=== PATIENT | female | born 1950 | race Caucasian/White ===

== ENCOUNTER 2020-05-01 23:57 | Inpatient (IN) | payer MEDICARE, OTHER, SELFPAY ==
[2020-05-02] VITALS (13 sets, daily range): BP systolic 116–134; BP diastolic 63–83; PULSE 75–100; RESP 16–29; TEMP 36.6–37.8; O2SAT 95–98; BMI 31.2
--- NOTE | 2020-05-02 00:05 | PM.HP ---
Providers/Chief Complaint Primary Care Provider: JONATHON Provider Chief Complaint: FEVER / WEAKNESS History of Present Illness Valerie Mueller is a 70 year old female who carries a history of Alzheimer's dementia, pulmonary hypertension, severely reduced ejection fraction 10 to 15%, nonischemic cardiomyopathy, transferred from [facility] to rule out COVID. Patient was admitted at the [facility] for a day for management of CHF exacerbation. She was diuresed and sent home. Today at [facility] clinic noticed temp 101 and was asked to get further evaluation. Diagnostics at the [facility] were unremarkable, strep antigen negative, chest x-ray showed pulmonary congestion, creatinine 1.24, urinalysis did not reveal any signs of infection, no source of fever was identified, they did not had rapid PCR for COVID hence was transferred to our facility for further evaluation on family's request. Patient was saturating well on room air at the facility, hemodynamically stable, temp 101, initially she was tachycardic around 101, she was given 20 mg of Lasix and Tylenol. At the time of my evaluation patient is not endorsing any chest pain, shortness of breath, diarrhea, dysuria, cough or sputum production. She lives with her son, no one is sick at home, she has not traveled outside. She is endorsing dyspnea on exertion, myalgia and lethargy. Current vitals blood pressure 123/70, temp 99.9, O2 saturation 98% on room air no active respiratory distress heart rate 78 I have requested stat chest x-ray which revealed cardiomegaly, vascular congestion which is not very different from her previous chest x-ray, mild interstitial prominence otherwise no active infiltrate or groundglass opacities COVID testing ordered, I have requested urine antigens, CRP, procalcitonin, ferritin, d-dimer Review of Systems Const: Reports: fever(s), chills, body aches, fatigue and malaise Eyes: Denies: change in vision ENMT: Denies: throat pain Card: Reports: swelling of feet/ankles and dyspnea on exertion; Denies: chest pain or orthopnea Resp: Reports: dyspnea; Denies: productive cough or non-productive cough GI: Denies: abdominal pain, nausea or vomiting : Denies: flank pain, difficulty voiding or urinary frequency Musc: Reports: muscle cramps Skin/Breast: Denies: rash Neuro: Denies: headache(s) Psych: Denies: anxiety Endo: Denies: polyuria David/Lymph: Denies: easy bruising All/Imm: Denies: urticaria Medications/Allergies Home Medications Medication Instructions Recorded Confirmed Last Taken Type allopurinol 300 mg tablet 300 mg PO DAILY 03/24/20 05/02/20 1 Day Ago History ~05/01/20 aspirin 81 mg tablet,delayed 81 mg PO DAILY 03/24/20 05/02/20 1 Day Ago History release ~05/01/20 clotrimazole 1 % topical cream 1 applic TOPICAL BID gm 03/24/20 03/24/20 Unknown History donepezil 5 mg tablet 5 mg PO BEDTIME 03/24/20 05/02/20 Unknown History escitalopram oxalate 10 mg tablet 15 mg PO DAILY tab 03/24/20 05/02/20 1 Day Ago History ~05/01/20 esomeprazole magnesium 40 mg 40 mg PO DAILY 03/24/20 05/02/20 1 Day Ago History capsule,delayed release ~05/01/20 fluoxetine 20 mg tablet 20 mg PO DAILY 03/24/20 05/02/20 1 Day Ago History ~05/01/20 furosemide 20 mg tablet 40 mg PO DAILY 03/24/20 05/02/20 1 Day Ago History ~05/01/20 hydralazine 25 mg tablet 25 mg PO TID 03/24/20 05/02/20 1 Day Ago History ~05/01/20 isosorbide dinitrate 20 mg tablet 10 mg PO BID tab 03/24/20 05/02/20 1 Day Ago History ~05/01/20 metoprolol succinate 25 mg capsule 12.5 mg PO BID each 03/24/20 05/02/20 1 Day Ago History sprinkle, ext. release 24 hr ~05/01/20 nitroglycerin 0.4 mg sublingual 0.4 mg SUBLINGUAL Q5M PRN 03/24/20 05/02/20 Unknown History tablet oxybutynin chloride 10 mg 10 mg PO DAILY 03/24/20 05/02/20 1 Day Ago History tablet,extended release 24 hr ~05/01/20 potassium chloride 20 mEq 20 meq PO DAILY 03/24/20 05/02/20 1 Day Ago History tablet,extended release ~05/01/20 simvastatin 20 mg tablet 20 mg PO BEDTIME 03/24/20 05/02/20 1 Day Ago History ~05/01/20 calcium carbonate-vitamin D3 05/02/20 1 Day Ago History ~05/01/20 ferrous sulfate 325 mg PO DAILY 05/02/20 05/02/20 1 Day Ago History ~05/01/20 magnesium oxide 500 mg PO BID 05/02/20 05/02/20 1 Day Ago History ~05/01/20 nystatin 1 applic TOPICAL BID 05/02/20 05/02/20 Unknown History Allergies Allergy/AdvReac Type Severity Reaction Status Date / Time phenazopyridine Allergy Unknown Verified 05/02/20 01:15 [From Pyridium] Sulfa (Sulfonamide Allergy Unknown Verified 05/02/20 01:15 Antibiotics) sulfamethoxazole Allergy Unknown Verified 05/02/20 02:02 [From Septra] trimethoprim [From Septra] Allergy Unknown Verified 05/02/20 02:02 PFSH Acute PFSH: Medical History Abnormal colonoscopy Polyp removal Anemia Bundle branch block Chronic kidney disease, stage 3 (moderate) Congestive heart failure Failure reduced EF 10 to 15% Diabetes mellitus Gout Hypertension Iron deficiency anemia Memory Loss Moderate pulmonary arterial systolic hypertension Nonischemic cardiomyopathy Obstructive sleep apnea Osteoarthritis Type 2 diabetes mellitus Surgical History H/O bladder repair surgery History of cardiac cath History of hysterectomy History of knee replacement S/P cholecystectomy Social History Smoking and tobacco status: never smoked Alcohol intake: never Adopted: No Caregiver/support person: Yes Lives independently: No Household members: children Current occupational exposures/hazards: No History of recent travel: No Current gender identity: Female Physical Exam Narrative: EXAM NARRATIVE: Head to toe examination Patient is saturating well on room air No active respiratory distress She is wearing a mask, she was examined with proper PPE No active wheezing, bibasilar crackles adequate breath sounds Abdomen soft nontender nondistended S1, S2 without any signs of active heart failure Her CHF seems to be compensated She is oriented to place and person, mild cognitive impairment positive She is able to tell above-mentioned details Not endorsing new pain Bilateral lower extremity 1+ pitting edema No active neurological deficit EOMI, PERRLA Data : 05/02/20 00:55 05/02/20 00:55 A&P Assessment and plan (1) Febrile: Status: Acute (2) Chronic kidney disease, stage 3 (moderate): Status: Acute (3) Congestive heart failure: Status: Acute (4) Dementia: Status: Acute Additional A&P Information Fever without active source Patient is not septic at admission Was recently discharged from [facility] after management of CHF exacerbation Chest x-ray is not revealing new infiltrates however mild interstitial vascular markings are being appreciated Cardiomegaly No signs of UTI No cough or sputum production Patient is denying diarrhea We will check urine antigen, rule out COVID Will obtain ferritin, d-dimer, LDH, CRP, procalcitonin, No active respiratory distress, patient saturating well on room air, currently afebrile I would hold off on antibiotics for now as no source has been identified and she is not septic Droplet and contact isolation precaution She might benefit from CT of her chest once COVID has been ruled out Severely reduced action fraction without active exacerbation Her heart failure seems to be well compensated Continue same dose of Lasix No clinical signs of heart failure Chronic kidney disease No acute decompensate Her creatinine seems to be around baseline Alzheimer's dementia Continue donepezil DVT prophylaxis: Heparin Cardiac diet Full code Attestations Medical Necessity Statement*: Anticipating discharge in less than 48 hours currently need to rule out COVID, she has fever without active source, Time Spent in Patient Care: (>than 50% of time spent in counselling and/or direct pt care on unit). 40mins Coding Level of Care Code Acute Auto Inspector for Lisbeth Osorio Diagnoses Febrile R50.9 Chronic kidney disease, stage 3 (moderate) N18.3 Congestive heart failure I50.9 Dementia F03.90
--- NOTE | 2020-05-02 00:19 | ED_ITS ---
HPI - Fever General: Chief Complaint: Fever Stated Complaint: FEVER / WEAKNESS Time Seen by Provider: 05/02/20 00:08 Source: patient and EMS Mode of arrival: EMS Limitations: no limitations History of Present Illness: HPI Narrative: 70-year-old female who was recently admitted to [facility] for CHF exacerbation. Patient was discharged and states that today she started having a fever up to 101. Patient went back to [facility] is found to have fever with unknown origin. Patient was transferred here for direct admission. She is currently afebrile. She denies any cough. Denies any headache or chest pain. MD elicited complaint: fever Onset (ago): hour(s) Associated symptoms: Deny abdominal pain, chest pain, diarrhea, dysuria, headache(s), nausea or vomiting Review of Systems Const: Reports: fever(s) Eyes: Denies: blurry vision or eye discomfort ENMT: Denies: throat pain or dental pain Card: Denies: chest pain Resp: Denies: dyspnea GI: Denies: abdominal pain, nausea, vomiting or diarrhea : Denies: dysuria Musc: Denies: neck pain or back pain Skin/Breast: Denies: rash Neuro: Denies: headache(s) Psych: Denies: depression David/Lymph: Denies: easy bruising All/Imm: Denies: urticaria PFSH ED PFSH: Medical History Abnormal colonoscopy Polyp removal Anemia Bundle branch block Chronic kidney disease, stage 3 (moderate) Congestive heart failure Failure reduced EF 10 to 15% Diabetes mellitus Gout Hypertension Iron deficiency anemia Memory Loss Moderate pulmonary arterial systolic hypertension Nonischemic cardiomyopathy Obstructive sleep apnea Osteoarthritis Type 2 diabetes mellitus Surgical History H/O bladder repair surgery History of cardiac cath History of hysterectomy History of knee replacement S/P cholecystectomy Social History Smoking and tobacco status: never smoked Alcohol intake: never Adopted: No Caregiver/support person: Yes Lives independently: No Household members: children Current occupational exposures/hazards: No History of recent travel: No Current gender identity: Female Physical Exam Const: COMMON NORMALS: no acute distress, patient oriented x3 and healthy appearing HENMT: COMMON NORMALS: normocephalic and atraumatic HEAD & SCALP: normocephalic and atraumatic Eye: COMMON NORMALS: Equal, round and reactive pupils present and EOMs intact bilaterally PUPIL: Yes Equal, round and reactive pupils present Neck/C-Spine: COMMON NORMALS: full ROM and supple Chest: COMMONS NORMALS: normal inspection of the chest and normal palpation of entire chest wall Resp: COMMON NORMALS: normal respiratory effort, No retractions, No use of accessory muscles and clear to auscultation bilaterally AUSCULTATION: clear to auscultation bilaterally Cardio: COMMON NORMALS: regular rate, regular rhythm and No murmurs present (Cardio) RATE: regular rate RHYTHM: regular rhythm GI: COMMON NORMALS: Normal to inspection, nondistended, normoactive bowel sounds present, Soft to palpation, non-tender and no masses PALPATION: Yes Soft to palpation Extremity: COMMON NORMALS: normal to inspection and full ROM Neuro: COMMON NORMALS: patient oriented x3, moves all extremities and no focal motor deficits Psych: COMMON NORMALS: mental status grossly normal, Normal thought process present and cooperative THOUGHT PROCESS: Normal thought process present Skin: COMMON NORMALS: no rashes or lesions noted and no wounds GENERAL SKIN EXAM: no rashes or lesions noted Course Vital Signs: Vital signs: Vital Signs Temperature 100.0 F H 05/02/20 00:15 Pulse Rate 85 05/02/20 00:15 Respiratory Rate 22 H 05/02/20 00:15 Blood Pressure 118/73 05/02/20 00:15 Pulse Oximetry 95 05/02/20 00:15 MDM - Fever MDM Narrative: Medical decision making narrative: Patient presents here with a fever of unknown origin. Patient is in no distress here. I spoke to Dr. Baird and will admit. Discharge Plan Discharge Patient Disposition: Admitted As Inpatient Clinical Impression: Fever of unknown origin Condition: Stable Referrals: [facility] [Other] Coding Level of Care Code ED Painting Supervisor for Lisbeth Osorio
--- NOTE | 2020-05-02 00:28 | XRR_ITS ---
PROCEDURE INFORMATION: Exam: XR Chest, 1 View Exam date and time: 05/02/2020 12:48 AM Age: 70 years old Clinical indication: Patient HX: Fever/weakness x 2 days; Additional info: Chf TECHNIQUE: Imaging protocol: XR of the chest Views: 1 view. COMPARISON: CR Chest 2 views* [id number] 10/26/2019 10:45 AM FINDINGS: Lungs: Hyperinflation and interstitial prominence, without acute infiltrate. Pleural space: No significant pleural effusion. Heart/Mediastinum: Cardiomegaly. Vasculature: Ectasia of the thoracic aorta. Bones/joints: Osteopenia, mild scoliosis, and degenerative change . Soft tissues: Right-sided skin fold. XR/XR chest 1V portable [id number] IMPRESSION: Hyperinflation and interstitial prominence, without acute infiltrate.
[2020-05-02 01:18] LABS: Basophils % 0.3 %; Eosinophils # 0.1 10^3/uL (0.0-0.8); Eosinophils % 1.3 %; Hematocrit 39.5 % (37.0-47.0); Hemoglobin 12.4 g/dL (11.5-15.3); Lymphocytes # 1.7 10^3/uL (0.8-4.8); Lymphocytes % 23.7 %; Mean Corpuscular HGB Conc 31.4 g/dL (30.0-36.0); Mean Corpuscular Volume 85.9 fL (81-99); Mean Platelet Volume 11.4 fL (7.4-10.4); Monocytes # 0.9 10^3/uL (0.2-0.9); Neutrophils # 4.3 10^3/uL (1.8-7.7); Neutrophils % 61.3 %; Nucleated Red Blood Cells % 0 %; Platelet Count 142 10^3/cmm (130-400); Red Cell Distribution Width 17.7 % (12.1-15.1); White Blood Count 7.1 10^3/uL (4.0-10.0)
[2020-05-02] MEDS: heparin 5,000 unit/mL INJ 1 mL 5000 UNIT SUBCUT ×3 (01:18→18:11)
[2020-05-02 01:28] LABS: Chloride 97 mmol/L (98-107); Sodium 136 mmol/L (136-145)
[2020-05-02 01:30] LABS: D Dimer 2.45 ug/mIFEU (0-0.59)
[2020-05-02 01:42] LABS: Procalcitonin 1.12 ng/mL (0-0.5)
[2020-05-02 01:54] LABS: C Reactive Protein 53.8 mg/L (0.0-4.9); Ferritin 229 ng/mL (15-150); Lactate Dehydrogenase 166 U/L (135-214)
--- NOTE | 2020-05-02 01:58 | PC.NURSE ---
Patient was admitted to the floor from the ED after being at [facility]. Report was received via phone from the ED. Patient is alert to person, place, and situation, however could not tell me the year. Patient was able to answer admission questions for me. Patient does not have any complaints at this time. Bed alarm has been set due to history of dementia. Patient has been oriented to her room and has call light within reach. Will continue to monitor.
[2020-05-02 02:13] LABS: Blood Urea Nitrogen 34 mg/dL (8-23); Calcium 9.6 mg/dL (8.5-10.5); Carbon Dioxide 24 mmol/L (22-29); Glomerular Filtration Rate 40.5 mL/min (90-130); Glucose 124 mg/dL (65-115); Osmolality Calculated 281 mOsm/kg (285-295)
--- NOTE | 2020-05-02 04:12 | PC.NURSE ---
password: [id number]
--- NOTE | 2020-05-02 05:01 | PC.NURSE ---
Patient has had an uneventful night. Patient's bedding is currently clean/dry. Patient was asking if she needs to get up to use the restroom and stated no. Bed alarm is still set. Will continue to monitor.
[2020-05-02 05:02] LABS: Basophils % 0.3 %; Eosinophils # 0.1 10^3/uL (0.0-0.8); Eosinophils % 1.6 %; Hematocrit 37.7 % (37.0-47.0); Hemoglobin 11.8 g/dL (11.5-15.3); Lymphocytes # 1.5 10^3/uL (0.8-4.8); Lymphocytes % 23.5 %; Mean Corpuscular HGB Conc 31.3 g/dL (30.0-36.0); Mean Corpuscular Hemoglobin 26.7 pg (28.0-34.0); Mean Corpuscular Volume 85.3 fL (81-99); Mean Platelet Volume 10.5 fL (7.4-10.4); Monocytes # 0.8 10^3/uL (0.2-0.9); Monocytes % 12.4 %; Neutrophils # 3.9 10^3/uL (1.8-7.7); Neutrophils % 61.9 %; Nucleated Red Blood Cells % 0 %; Platelet Count 121 10^3/cmm (130-400); Red Blood Count 4.42 10^6/uL (4.1-5.3); Red Cell Distribution Width 17.4 % (12.1-15.1); White Blood Count 6.3 10^3/uL (4.0-10.0)
[2020-05-02] MEDS: FUROsemide 20 mg Tablet PO (09:18)
[2020-05-02] MEDS: pantoprazole DR 40 mg Tablet PO (09:19)
[2020-05-02] MEDS: aspirin 81 mg EC Tablet PO (09:19)
[2020-05-02] MEDS: donepezil 5 MG Tablet PO (09:19)
[2020-05-02] MEDS: fluoxetine 20 mg Capsule PO (09:19)
[2020-05-02] MEDS: allopurinol 300 mg Tablet PO (09:19)
[2020-05-02 10:28] LABS: Estmated Average Glucose 120; Hemoglobin A1C 5.8 % (4.0-6.0)
[2020-05-02] MEDS: hyDRALAzine 10 mg Tablet PO ×3 (10:37→21:01)
--- NOTE | 2020-05-02 10:58 | PC.CHAP ---
Pastoral Care Encounter/Spiritual Assessment Type of Contact [] Declined fringe weaver visit [] Patient/Family/Request visit [] Outpatient visit [] Follow-up visit [] Physician referral [] Code/Alert [x] Routine visit [] Staff referral [] Actively dying [] Patient sleeping [] Family support [] [] Out of room [] Palliative care [] [] Receiving care in room [] Pre-surgical visit [] Trauma [] Long length of stay [] ICU visit [x] Other: Isolated Relational/Emotional Strength [] Patient feels connected with others/family/visitors/staff [] Distress [] Loneliness/isolation [] Abandonment Spirituality of Patient [] Person of Ashlyn [] Attends Voodoo of their Ashlyn [] Believes in Prayer [] Reads Bible or Yazdanism materials [] There are Spiritual issues to be addressed Environmental Science Technician Interventions [] Prayer [] Active listening [] Non-anxious presence [] Spiritual/emotional support [] Crisis/trauma care [] Spiritual counseling [] Bereavement support [] Provided bereavement packet [] Provided Bible/devotional materials [] Provided toy/stuffed animal, coloring book to patient or family member [] Provided Communion [] Anointing/[place] [] Salvation [x] Completed spiritual assessment [] Other: Impact on Illness or Injury [] Angry [] Fearful [] Anxious [] Often cries [] Exhaustion [] Unable to work [] Unable to attend voodoo [] Unable to walk/stand [] Unable to read [] Unable to drive [] Unable to eat/drink [] Unable to sleep [] Unable to be with family [] Patient intubated [] Other: Summary Time spent with patient
[2020-05-02 11:41] LABS: Glucose Point of Care 116 mg/dL (70-110)
--- NOTE | 2020-05-02 13:59 | PM.PN ---
Subjective Subjective: Interval history: Currently patient is seen sitting up in bed, has a mask on, has no complaints, no fevers, no chills, no nausea, no vomiting, no lightheadedness, no dizziness, denies shortness of breath currently, is a bit anxious about her COVID testing Vitals/I&O/Wt Last Vital Signs Temp 98.5 F 05/02/20 12:00 Pulse 94 05/02/20 12:00 Resp 23 H 05/02/20 12:00 BP 126/74 05/02/20 12:00 Pulse Ox 98 05/02/20 12:00 05/01/20 05/02/20 05/02/20 22:59 06:59 14:59 Intake Total 200 / 200 500 / 500 Balance 200 / 200 500 / 500 Weight last 48 hrs Weight 59.194 kg Weight 72.575 kg Physical Exam Const: COMMON NORMALS: no acute distress and patient oriented x3 HENMT: COMMON NORMALS: normocephalic HEAD & SCALP: normocephalic Neck/C-Spine: COMMON NORMALS: no JVD Resp: COMMON NORMALS: normal respiratory effort, No retractions, No use of accessory muscles and clear to auscultation bilaterally AUSCULTATION: clear to auscultation bilaterally Cardio: COMMON NORMALS: no JVD, regular rate, regular rhythm, S1 normal heart sound present and S2 normal heart sound present RATE: regular rate RHYTHM: regular rhythm HEART SOUNDS: S1 normal heart sound present and S2 normal heart sound present GI: COMMON NORMALS: Normal to inspection, nondistended, normoactive bowel sounds present, Soft to palpation, non-tender, No hepatosplenomegaly present, no masses and no bruits PALPATION: Yes Soft to palpation and Yes No hepatosplenomegaly present Extremity: COMMON NORMALS: capillary refill normal, no clubbing, cyanosis or edema, no calf tenderness and no pedal edema Neuro: COMMON NORMALS: patient oriented x3 Psych: COMMON NORMALS: mental status grossly normal Data : 05/02/20 04:18 05/02/20 00:55 A&P Assessment and plan (1) Febrile: Status: Acute (2) Chronic kidney disease, stage 3 (moderate): Status: Acute (3) Congestive heart failure: Status: Acute (4) Dementia: Status: Acute Additional A&P Information Fever without active source Patient is not septic at admission Was recently discharged from [facility] after management of CHF exacerbation Chest x-ray is not revealing new infiltrates however mild interstitial vascular markings are being appreciated Cardiomegaly No signs of UTI No cough or sputum production Patient is denying diarrhea We will check urine antigen, rule out COVID Pro-Joe 1.12, CRP 53.8, d-dimer 2.45 No active respiratory distress, patient saturating well on room air, currently afebrile I would hold off on antibiotics for now as no source has been identified and she is not septic Droplet and contact isolation precaution She might benefit from CT of her chest once COVID has been ruled out Nonischemic cardiomyopathy, EF of 10 to 15% Had a negative cardiac catheterization in October 2019 Recently admitted to [facility] for CHF exacerbation her heart failure seems to be well compensated Continue same dose of Lasix No clinical signs of heart failure Chronic kidney disease stage III Current creatinine 1.3 Hypertension Hyperlipidemia History of COPD? During her last hospitalization there was concerns for possible COPD, no imaging on the lungs, no history of pulmonary function testing, but was on inhalers at one point, no smoking history History obstructive sleep apnea Alzheimer's dementia Continue donepezil DVT prophylaxis: Heparin Cardiac diet Full code Attestations Medical Necessity Statement*: Patient requires continued hospitalization due to fevers, shortness of breath, concerns for COVID-19 Coding Level of Care Code Acute Pharmacy Operations Manager for Lisbeth Osorio Diagnoses Febrile R50.9 Chronic kidney disease, stage 3 (moderate) N18.3 Congestive heart failure I50.9 Dementia F03.90
[2020-05-02 14:54] LABS: Coronavirus Lab Test PTC NOT DETECTED
[2020-05-02 16:22] LABS: Glucose Point of Care 80 mg/dL (70-110)
--- NOTE | 2020-05-02 20:40 | PC.NURSE ---
Rounding: Patient in bed on assessment with mask on. Patient brief changed. Patient calm and cooperative at this time. Patient denies any needs at this time.
[2020-05-03] VITALS (8 sets, daily range): BP systolic 113–137; BP diastolic 70–87; PULSE 85–104; RESP 15–24; TEMP 36.9–37.4; O2SAT 95–97; BMI 25.4
[2020-05-03] MEDS: heparin 5,000 unit/mL INJ 1 mL 5000 UNIT SUBCUT ×3 (02:08→16:01)
--- NOTE | 2020-05-03 02:32 | PC.NURSE ---
Patients heparin injection delayed due to patient care in other rooms
--- NOTE | 2020-05-03 05:40 | PC.NURSE ---
End of shift: Patient has rested well this shift. Patient has not attempted to get out of bed on her own and been appropriate. Patient has remained afebrile. Patient has been incontinent and this is why no urine sample has been obtained. Patient has had a uneventful night. Patient bed alarm is set, call light within reach, bed in low postion, side rails up x2.
[2020-05-03 06:01] LABS: Basophils % 0.2 %; Eosinophils # 0.2 10^3/uL (0.0-0.8); Eosinophils % 3.1 %; Hematocrit 37.6 % (37.0-47.0); Hemoglobin 11.8 g/dL (11.5-15.3); Lymphocytes # 1.6 10^3/uL (0.8-4.8); Lymphocytes % 32.9 %; Mean Corpuscular HGB Conc 31.4 g/dL (30.0-36.0); Mean Corpuscular Hemoglobin 26.6 pg (28.0-34.0); Mean Corpuscular Volume 84.7 fL (81-99); Mean Platelet Volume 10.6 fL (7.4-10.4); Monocytes # 0.5 10^3/uL (0.2-0.9); Monocytes % 9.9 %; Neutrophils # 2.6 10^3/uL (1.8-7.7); Neutrophils % 53.5 %; Nucleated Red Blood Cells % 0 %; Platelet Count 123 10^3/cmm (130-400); Red Blood Count 4.44 10^6/uL (4.1-5.3); Red Cell Distribution Width 17.5 % (12.1-15.1); White Blood Count 4.8 10^3/uL (4.0-10.0)
[2020-05-03 06:29] LABS: Alanine Aminotransferase 24 U/L (0-33); Albumin Level 3.1 g/dL (3.5-5.2); Alkaline Phosphatase 114 IU/L (35-105); Anion Gap 17.5 (5-19); Aspartate Amino Transferase 26 U/L (0-32); Blood Urea Nitrogen 37 mg/dL (8-23); Calcium 9.5 mg/dL (8.5-10.5); Carbon Dioxide 24 mmol/L (22-29); Chloride 97 mmol/L (98-107); Globulin 3.6 g/dL (1.3-4.6); Glomerular Filtration Rate 40.5 mL/min (90-130); Glucose 100 mg/dL (65-115); Magnesium 1.5 mg/dL (1.7-2.3); Osmolality Calculated 278 mOsm/kg (285-295); Phosphorus 2.4 mg/dL (2.5-4.5); Potassium 3.5 mmol/L (3.5-5.1); Sodium 135 mmol/L (136-145); Total Bilirubin 0.7 mg/dL (0.15-1.2); Total Protein 6.7 g/dL (6.6-8.7)
[2020-05-03] MEDS: donepezil 5 MG Tablet PO (08:04)
[2020-05-03] MEDS: FUROsemide 20 mg Tablet PO (08:04)
[2020-05-03] MEDS: fluoxetine 20 mg Capsule PO (08:04)
[2020-05-03] MEDS: hyDRALAzine 10 mg Tablet PO ×3 (08:05→20:58)
[2020-05-03] MEDS: allopurinol 300 mg Tablet PO (08:05)
[2020-05-03] MEDS: aspirin 81 mg EC Tablet PO (08:05)
[2020-05-03] MEDS: pantoprazole DR 40 mg Tablet PO (08:05)
--- NOTE | 2020-05-03 13:08 | P.PN_ITS ---
Subjective Subjective: Interval history: Patient has no complaints this morning, no shortness of breath, no chest pain, rash lightheadedness, no dizziness, no fevers, no dysuria, no cough, refers COVID testing came back negative, waiting on the second COVID testing Currently the issue is is that patient's has left her, with their finances, her family cannot take care of her at home, it is a difficult situation, I discussed options are available to the patient, she is agreeable to penitentiary placement Vitals/I&O/Wt Last Vital Signs Temp 98.8 F 05/03/20 09:56 Pulse 85 05/03/20 09:56 Resp 22 H 05/03/20 09:56 BP 137/75 05/03/20 09:56 Pulse Ox 95 05/03/20 09:56 05/02/20 05/03/20 05/03/20 22:59 06:59 14:59 Intake Total 425 / 1225 120 / 1345 340 / 340 Output Total 550 / 550 Balance 425 / 1225 120 / 1345 -210 / -210 Weight last 48 hrs Weight 59.137 kg Weight 59.194 kg Weight 72.575 kg Physical Exam Const: COMMON NORMALS: no acute distress and patient oriented x3 HENMT: COMMON NORMALS: normocephalic HEAD & SCALP: normocephalic Neck/C-Spine: COMMON NORMALS: no JVD Resp: COMMON NORMALS: normal respiratory effort, No retractions, No use of accessory muscles and clear to auscultation bilaterally AUSCULTATION: clear to auscultation bilaterally Cardio: COMMON NORMALS: no JVD, regular rate, regular rhythm, S1 normal heart sound present and S2 normal heart sound present RATE: regular rate RHYTHM: regular rhythm HEART SOUNDS: S1 normal heart sound present and S2 normal heart sound present GI: COMMON NORMALS: Normal to inspection, nondistended, normoactive bowel sounds present, Soft to palpation, non-tender, No hepatosplenomegaly present, no masses and no bruits PALPATION: Yes Soft to palpation and Yes No hepatosplenomegaly present Extremity: COMMON NORMALS: capillary refill normal, no clubbing, cyanosis or edema, no calf tenderness and no pedal edema Neuro: COMMON NORMALS: patient oriented x3 Psych: COMMON NORMALS: mental status grossly normal Data : 05/03/20 05:18 05/03/20 05:18 A&P Assessment and plan (1) Febrile: Status: Acute (2) Chronic kidney disease, stage 3 (moderate): Status: Acute (3) Congestive heart failure: Status: Acute (4) Dementia: Status: Acute Additional A&P Information Fever without active source Patient is not septic at admission Was recently discharged from [facility] after management of CHF exacerbation Chest x-ray is not revealing new infiltrates however mild interstitial vascular markings are being appreciated Cardiomegaly No signs of UTI No cough or sputum production Patient is denying diarrhea We will check urine antigen, first COVID negative, will do second COVID Will consider doing CT of her chest given elevated d-dimer Pro-Joe 1.12, CRP 53.8, d-dimer 2.45 No active respiratory distress, patient saturating well on room air, currently a febrile I would hold off on antibiotics for now as no source has been identified and she is not septic Droplet and contact isolation precaution She might benefit from CT of her chest once COVID has been ruled out Nonischemic cardiomyopathy, EF of 10 to 15% Had a negative cardiac catheterization in October 2019 Recently admitted to [facility] for CHF exacerbation her heart failure seems to be well compensated Continue same dose of Lasix No clinical signs of heart failure Chronic kidney disease stage III Current creatinine 1.3 Hypertension Hyperlipidemia History of COPD? During her last hospitalization there was concerns for possible COPD, no imaging on the lungs, no history of pulmonary function testing, but was on inhalers at one point, no smoking history History obstructive sleep apnea Alzheimer's dementia Continue donepezil DVT prophylaxis: Heparin Cardiac diet Full code Attestations Medical Necessity Statement*: Patient requires hospitalization due to febrile, requiring COVID testing, penitentiary placement Coding Level of Care Code Acute Tram Inspector for [facility] Diagnoses Febrile R50.9 Chronic kidney disease, stage 3 (moderate) N18.3 Congestive heart failure I50.9 Dementia F03.90
[2020-05-03 14:08] LABS: Coronavirus Lab Test PTC SEE REPORT
[2020-05-03] MEDS: polyethylene glycol 3350 Pkt 17 gm PO (18:39)
[2020-05-04] VITALS (9 sets, daily range): BP systolic 115–147; BP diastolic 71–94; PULSE 82–108; RESP 15–24; TEMP 36.9–37.2; O2SAT 95–100
--- NOTE | 2020-05-04 00:53 | PC.NURSE ---
Rounding: Patient is resting in bed. Bed alarm on and call light is within reach. Patient denies any needs at this time and will continue to monitor.
[2020-05-04] MEDS: heparin 5,000 unit/mL INJ 1 mL 5000 UNIT SUBCUT ×3 (01:36→15:55)
[2020-05-04 04:57] LABS: Basophils % 0.4 %; Eosinophils # 0.2 10^3/uL (0.0-0.8); Eosinophils % 3.8 %; Hematocrit 35.5 % (37.0-47.0); Hemoglobin 11.3 g/dL (11.5-15.3); Lymphocytes # 1.6 10^3/uL (0.8-4.8); Lymphocytes % 32.1 %; Mean Corpuscular HGB Conc 31.8 g/dL (30.0-36.0); Mean Corpuscular Hemoglobin 27.3 pg (28.0-34.0); Mean Corpuscular Volume 85.7 fL (81-99); Mean Platelet Volume 11.5 fL (7.4-10.4); Monocytes # 0.4 10^3/uL (0.2-0.9); Monocytes % 8.9 %; Neutrophils # 2.7 10^3/uL (1.8-7.7); Neutrophils % 54.4 %; Nucleated Red Blood Cells % 0 %; Platelet Count 158 10^3/cmm (130-400); Red Blood Count 4.14 10^6/uL (4.1-5.3); Red Cell Distribution Width 17.9 % (12.1-15.1)
[2020-05-04 05:22] LABS: Alanine Aminotransferase 26 U/L (0-33); Albumin Level 3.2 g/dL (3.5-5.2); Alkaline Phosphatase 117 IU/L (35-105); Anion Gap 18.1 (5-19); Aspartate Amino Transferase 36 U/L (0-32); Blood Urea Nitrogen 38 mg/dL (8-23); Calcium 9.8 mg/dL (8.5-10.5); Carbon Dioxide 26 mmol/L (22-29); Chloride 97 mmol/L (98-107); Globulin 3.8 g/dL (1.3-4.6); Glomerular Filtration Rate 34.3 mL/min (90-130); Glucose 104 mg/dL (65-115); Magnesium 1.6 mg/dL (1.7-2.3); Osmolality Calculated 282 mOsm/kg (285-295); Phosphorus 3.2 mg/dL (2.5-4.5); Potassium 4.1 mmol/L (3.5-5.1); Sodium 137 mmol/L (136-145); Total Bilirubin 0.7 mg/dL (0.15-1.2)
--- NOTE | 2020-05-04 05:50 | PC.NURSE ---
End of shift: Patient has had a uneventful shift. Patient bed alarm is on. Patient has rested well. Patient call light is on and bed in low position. Will continue to monitor.
--- NOTE | 2020-05-04 07:34 | PC.NURSE ---
urine incontinence Pt urinated the whole bed and her gown upon initial rounding. bed change. alirio care provided.
[2020-05-04] MEDS: FUROsemide 20 mg Tablet PO (07:53)
[2020-05-04] MEDS: polyethylene glycol 3350 Pkt 17 gm PO (08:24)
[2020-05-04] MEDS: donepezil 5 MG Tablet PO (08:25)
[2020-05-04] MEDS: aspirin 81 mg EC Tablet PO (08:25)
[2020-05-04] MEDS: pantoprazole DR 40 mg Tablet PO (08:25)
[2020-05-04] MEDS: magnesium oxide 400 mg tablet PO ×2 (08:25→18:09)
[2020-05-04] MEDS: hyDRALAzine 10 mg Tablet PO ×3 (08:25→20:41)
[2020-05-04] MEDS: allopurinol 300 mg Tablet PO (08:25)
[2020-05-04] MEDS: fluoxetine 20 mg Capsule PO (08:25)
[2020-05-04] MEDS: docusate sodium 100 mg Capsule PO ×2 (10:50→18:09)
--- NOTE | 2020-05-04 12:57 | P.PN_ITS ---
Subjective Subjective: Interval history: Patient has no complaints this morning, no fevers, no chills, no nausea, no vomiting, no lightheadedness, no dizziness, no shortness of breath, no cough, no abdominal pain, no diarrhea, no dysuria, no hematuria, no headache, no blurry vision, has remained afebrile for the last 24 hours Vitals/I&O/Wt Last Vital Signs Temp 99 F 05/04/20 10:55 Pulse 94 05/04/20 10:55 Resp 15 05/04/20 10:55 BP 127/79 05/04/20 10:55 Pulse Ox 95 05/04/20 10:55 05/03/20 05/04/20 05/04/20 22:59 06:59 14:59 Intake Total 474 / 1154 354 / 354 Output Total 300 / 300 Balance 474 / 504 54 / 54 Weight last 48 hrs Weight 59.137 kg Physical Exam Const: COMMON NORMALS: no acute distress and patient oriented x3 HENMT: COMMON NORMALS: normocephalic HEAD & SCALP: normocephalic Neck/C-Spine: COMMON NORMALS: no JVD Resp: COMMON NORMALS: normal respiratory effort, No retractions, No use of accessory muscles and clear to auscultation bilaterally AUSCULTATION: clear to auscultation bilaterally Cardio: COMMON NORMALS: no JVD, regular rate, regular rhythm, S1 normal heart sound present and S2 normal heart sound present RATE: regular rate RHYTHM: regular rhythm HEART SOUNDS: S1 normal heart sound present and S2 normal heart sound present GI: COMMON NORMALS: Normal to inspection, nondistended, normoactive bowel sounds present, Soft to palpation, non-tender, No hepatosplenomegaly present, no masses and no bruits PALPATION: Yes Soft to palpation and Yes No hepatosplenomegaly present Extremity: COMMON NORMALS: capillary refill normal, no clubbing, cyanosis or edema, no calf tenderness and no pedal edema Neuro: COMMON NORMALS: patient oriented x3 Psych: COMMON NORMALS: mental status grossly normal Data : 05/04/20 04:10 05/04/20 04:10 Micro: Microbiology 05/03/20 12:00 Legionella Urinary Antigen - Final Urine,Voided Bacterial Antigens - Final A&P Assessment and plan (1) Febrile: Status: Acute (2) Chronic kidney disease, stage 3 (moderate): Status: Acute (3) Congestive heart failure: Status: Acute (4) Dementia: Status: Acute Additional A&P Information Fever without active source Patient is not septic at admission Was recently discharged from [facility] after management of CHF exacerbation Chest x-ray is not revealing new infiltrates however mild interstitial vascular markings are being appreciated Cardiomegaly No signs of UTI No cough or sputum production Patient is denying diarrhea We will check urine antigen, first COVID negative, will do second COVID Will consider doing CT of her chest Pro-Joe 1.12, CRP 53.8, d-dimer 2.45 No active respiratory distress, patient saturating well on room air, currently afebrile I would hold off on antibiotics for now as no source has been identified and she is not septic Droplet and contact isolation precaution She might benefit from CT of her chest once COVID has been ruled out Nonischemic cardiomyopathy, EF of 10 to 15% Had a negative cardiac catheterization in October 2019 Recently admitted to [facility] for CHF exacerbation her heart failure seems to be well compensated Continue same dose of Lasix No clinical signs of heart failure Chronic kidney disease stage III Current creatinine 1.5 patient is awaiting senior care placement Hypertension Hyperlipidemia History of COPD? During her last hospitalization there was concerns for possible COPD, no imaging on the lungs, no history of pulmonary function testing, but was on inhalers at one point, no smoking history History obstructive sleep apnea Alzheimer's dementia Continue donepezil DVT prophylaxis: Heparin Cardiac diet Full code Patient is awaiting nursing placement Attestations Medical Necessity Statement*: Patient requires continued hospitalization for fevers, constrictive COVID-19, awaiting negative COVID-19 testing, require senior care placement Coding Level of Care Code Acute Medical Records Technician for [facility] Fwd Diagnoses Febrile R50.9 Chronic kidney disease, stage 3 (moderate) N18.3 Congestive heart failure I50.9 Dementia F03.90
--- NOTE | 2020-05-04 16:14 | PC.NURSE ---
called infection control They have not heard on the result of the repeat covid nasal swab test.
[2020-05-04] MEDS: acetaminophen 325 mg Tablet 650 MG PO (16:16)
--- NOTE | 2020-05-04 19:45 | PC.NURSE ---
Rounding: Patient put to bed and taken to the commode. Pericare provided. Patient bed alarm set and tv turned on for patient. Call light within reach bed in low position and will continue to monitor.
[2020-05-05] VITALS (7 sets, daily range): BP systolic 113–137; BP diastolic 64–88; PULSE 66–99; RESP 16–20; TEMP 36.4–37.2; O2SAT 94–97
[2020-05-05] MEDS: heparin 5,000 unit/mL INJ 1 mL 5000 UNIT SUBCUT ×3 (01:33→17:33)
[2020-05-05 05:01] LABS: Eosinophils # 0.1 10^3/uL (0.0-0.8); Eosinophils % 4.9 %; Hematocrit 33.1 % (37.0-47.0); Hemoglobin 10.5 g/dL (11.5-15.3); Lymphocytes # 0.8 10^3/uL (0.8-4.8); Lymphocytes % 28.1 %; Mean Corpuscular HGB Conc 31.7 g/dL (30.0-36.0); Mean Corpuscular Hemoglobin 26.9 pg (28.0-34.0); Mean Corpuscular Volume 84.7 fL (81-99); Mean Platelet Volume 12.3 fL (7.4-10.4); Monocytes # 0.4 10^3/uL (0.2-0.9); Monocytes % 13.2 %; Neutrophils # 1.5 10^3/uL (1.8-7.7); Neutrophils % 52.5 %; Nucleated Red Blood Cells % 0 %; Platelet Count 209 10^3/cmm (130-400); Red Blood Count 3.91 10^6/uL (4.1-5.3); Red Cell Distribution Width 17.8 % (12.1-15.1); White Blood Count 2.9 10^3/uL (4.0-10.0)
--- NOTE | 2020-05-05 05:21 | PC.NURSE ---
End of shift: Patient has rested off and on this shift. Patient has been using her call light and the used the bedside commode with assistance. Patient has had a uneventful shift. Patient call light is within reach, bed in low position, bed alarm on. Vitals are stable at this time. Will continue to monitor.
[2020-05-05 05:22] LABS: Alanine Aminotransferase 27 U/L (0-33); Alkaline Phosphatase 112 IU/L (35-105); Anion Gap 16.4 (5-19); Aspartate Amino Transferase 41 U/L (0-32); Blood Urea Nitrogen 35 mg/dL (8-23); Calcium 9.6 mg/dL (8.5-10.5); Carbon Dioxide 24 mmol/L (22-29); Chloride 100 mmol/L (98-107); Globulin 3.3 g/dL (1.3-4.6); Glomerular Filtration Rate 49.1 mL/min (90-130); Glucose 98 mg/dL (65-115); Magnesium 1.5 mg/dL (1.7-2.3); Osmolality Calculated 279 mOsm/kg (285-295); Phosphorus 3.2 mg/dL (2.5-4.5); Potassium 4.4 mmol/L (3.5-5.1); Sodium 136 mmol/L (136-145); Total Bilirubin 0.6 mg/dL (0.15-1.2); Total Protein 6.3 g/dL (6.6-8.7)
[2020-05-05 05:26] LABS: Procalcitonin 0.54 ng/mL (0-0.5)
[2020-05-05] MEDS: FUROsemide 20 mg Tablet PO (08:01)
[2020-05-05] MEDS: aspirin 81 mg EC Tablet PO (08:01)
[2020-05-05] MEDS: fluoxetine 20 mg Capsule PO (08:01)
[2020-05-05] MEDS: donepezil 5 MG Tablet PO (08:01)
[2020-05-05] MEDS: allopurinol 300 mg Tablet PO (08:01)
[2020-05-05] MEDS: pantoprazole DR 40 mg Tablet PO (08:07)
[2020-05-05] MEDS: docusate sodium 100 mg Capsule PO (08:07)
[2020-05-05] MEDS: polyethylene glycol 3350 Pkt 17 gm PO (08:07)
[2020-05-05] MEDS: hyDRALAzine 10 mg Tablet PO ×3 (09:20→20:55)
--- NOTE | 2020-05-05 10:00 | PC.CHAP ---
Pastoral Care Encounter/Spiritual Assessment Type of Contact [] Declined filler block inserter remover visit [] Patient/Family/Request visit [] Outpatient visit [] Follow-up visit [] Physician referral [] Code/Alert [x] Routine visit [] Staff referral [] Actively dying [] Patient sleeping [] Family support [] [] Out of room [] Palliative care [] [] Receiving care in room [] Pre-surgical visit [] Trauma [] Long length of stay [] ICU visit [] Other: Isolation Relational/Emotional Strength [] Patient feels connected with others/family/visitors/staff [] Distress [] Loneliness/isolation [] Abandonment Spirituality of Patient [] Person of Ashlyn [] Attends Roman Catholic of their Ashlyn [] Believes in Prayer [] Reads Bible or Jew materials [] There are Spiritual issues to be addressed Manager Creative Services Interventions [] Prayer [] Active listening [] Non-anxious presence [] Spiritual/emotional support [] Crisis/trauma care [] Spiritual counseling [] Bereavement support [] Provided bereavement packet [] Provided Bible/devotional materials [] Provided toy/stuffed animal, coloring book to patient or family member [] Provided Communion [] Anointing/Vining [] Salvation [] Completed spiritual assessment [] Other: Impact on Illness or Injury [] Angry [] Fearful [] Anxious [] Often cries [] Exhaustion [] Unable to work [] Unable to attend anabaptist [] Unable to walk/stand [] Unable to read [] Unable to drive [] Unable to eat/drink [] Unable to sleep [] Unable to be with family [] Patient intubated [] Other: Summary Time spent with patient
--- NOTE | 2020-05-05 12:05 | USCV_ITS ---
Ervin Valerie Age: 70 Gender: F : 1950 Exam Date: 05/05/2020 13:08 Ordering Phys: Gianni Bustamante MD Technologist: Rodrigue Barclay Exam Location: [facility] [place]_ Indication: BILAT EDEMA HISTORY: Lower extremity edema. PROCEDURES: The venous duplex Doppler examination of both lower extremities was performed in the standard fashion. The following venous structures were evaluated: common femoral vein, profunda vein, proximal portion of the greater saphenous vein, superficial femoral vein, and the popliteal vein. FINDINGS: Normal 2-D Doppler and augmentation and compressibility throughout the lower extremity venous structures. Additional imaging through the proximal calf veins also reveals no thrombus. Limited evaluation of the greater saphenous vein is patent with no thrombus.. CONCLUSIONS No evidence of right lower extremity DVT. No evidence of left lower extremity DVT. Bandar Phillips MD (Electronically Signed) Final Date: 05 May 2020 16:39 S
[2020-05-05 12:33] LABS: D Dimer 3.65 ug/mIFEU (0-0.59)
[2020-05-05 12:47] LABS: NT Pro B Type Natriuretic Pept 11270 pg/mL (0-125)
[2020-05-05 13:01] LABS: ABG PCO2 35.8 mmHg (35-45); ABG PH Result 7.46 (7.35-7.45); Arterial Blood Gas Hematocrit 33.1 % (37-47); Base Excess ABG 1.9 mmol/L (-2.0-2.0); Blood Gas Allen Test Pos; Blood Gas Sample Site Radial, left; Blood Gas Sample Type Arterial; HCO3 ABG 25.6 mmol/L (22-26); Oxygen Device ROOM AIR; PO2 ABG 82.7 mmHg (80.0-100.0)
--- NOTE | 2020-05-05 14:00 | PC.NURSE ---
call infection control Talked to EDSON Cuevas and she said to call the laboratory for the result now. Called Lab and they said her COVID result is negative. Will notify
[2020-05-05] MEDS: metoprolol tartrate 1 mg/1 mL SDV 5 mL 5 MG (14:08)
--- NOTE | 2020-05-05 15:39 | PM.PN ---
Subjective Subjective: Interval history: H&P and hospital stay noted. No acute events overnight. Patient has remained afebrile in last 24 hours. On examination lying comfortably in bed. Has had an uneventful night. Denies of any nausea, vomiting, abdominal pain, headache. Vitals/I&O/Wt Last Vital Signs Temp 98.7 F 05/05/20 12:00 Pulse 99 05/05/20 12:00 Resp 16 05/05/20 12:00 BP 137/72 05/05/20 12:00 Pulse Ox 94 05/05/20 12:00 05/05/20 05/05/20 05/05/20 06:59 14:59 22:59 Intake Total 240 / 862 340 / 340 Output Total 400 / 1500 350 / 350 Balance -160 / -638 -10 / 10 Physical Exam Narrative: EXAM NARRATIVE: General: No acute distress, AO x3 HEENT: PERRLA, pupils bilaterally equal and reactive Chest: Normal vesicular breath sounds, no added sounds, equal good air entry bilaterally CVS: S1-S2 regular, no murmurs, no tachycardia, no gallops, no rubs Abdomen: Soft, nontender, no organomegaly, bowel sounds present Neuro: No focal deficits, no facial deformity, AO x3, power 5/5 in all limbs Extremities bilateral pulses equal and palpable, no localized tenderness, no localized warmth, bilateral calf seem equal in size Data : 05/05/20 04:34 05/05/20 04:34 A&P Assessment and plan (1) Fever of unknown origin: Status: Acute (2) Chronic kidney disease, stage 3 (moderate): Status: Acute (3) Congestive heart failure: Status: Acute (4) Dementia: Status: Acute Additional A&P Information Fever without active source: No sepsis on admission. COVID-19 has been negative twice with last negative on May 03, 2020 Pro-Joe negative, CRP ESR mildly elevated, d-dimer 2.245 and elevated. Patient has remained afebrile other than T-max of 99.4 since admission and 100.1 at the time of admission, off antibiotics since admission, chest x-ray negative for any infiltrates, no signs of UTI with a normal urinalysis, no diarrhea, cough, abdominal pain, nausea Given mildly elevated d-dimer and and fever on admission we will rule out other causes of fever. Check lower limb Dopplers, ABG to rule out hypoxia and hypercapnia, unfortunately cannot do CTA PE due to patient's creatinine and so will do VQ perfusion scan. Nonischemic cardiomyopathy: EF of 10 to 15% Had a negative cardiac catheterization in October 2019 Well compensated HF Continue home dose of Lasix. Continue decreased dose of hydralazine as blood pressures have been stable on that. We will start patient on home dose of metoprolol. Strict input output charting, daily weights. Chronic kidney disease stage III Current creatinine 1.1 improving Hypertension Hyperlipidemia History of COPD? During her last hospitalization there was concerns for possible COPD, no imaging on the lungs, no history of pulmonary function testing, but was on inhalers at one point, no smoking history History obstructive sleep apnea Alzheimer's dementia Continue donepezil, prozac DVT prophylaxis: Heparin Cardiac diet Full code Given the social issues patient would need SNF placement. Patient has been accepted at [facility]. Patient's hospital status was changed to inpatient yesterday. Patient would need 3 midnights. PT/OT evaluation. Attestations Medical Necessity Statement*: Fever of unknown origin, elevated d-dimer Time Spent in Patient Care: Greater than 35 minutes (>than 50% of time spent in counselling and/or direct pt care on unit). Coding Level of Care Code Acute Teenage Program Director for [facility] Diagnoses Fever of unknown origin R50.9 Chronic kidney disease, stage 3 (moderate) N18.3 Congestive heart failure I50.9 Dementia F03.90
--- NOTE | 2020-05-05 15:42 | PC.NURSE ---
Heart rate went up to 160s Pt is sustaining again in 160s ventricular rate. Temp-99.8 orally. 2 hrs post Digoxin 0.25 mg IVP and Cardizem drip is still running at 15 mg /hr. BP currently is 103/71. Dr Yanes notified and received an order for Digoxin 0.25 mg IVP.
--- NOTE | 2020-05-05 19:57 | PC.NURSE ---
Patient resting in bed with eyes closed. Eyes open spontaneously to voice. Patient reports feeling better and denies any needs or discomforts at this time. Assessment completed as documented. Instructed patient on plan for the evening. Patient expressed understanding.
[2020-05-05] MEDS: atorvastatin 40 mg Tablet 20 MG PO (20:55)
[2020-05-06] VITALS (8 sets, daily range): BP systolic 99–130; BP diastolic 50–79; PULSE 66–81; RESP 12–24; TEMP 36.4–37.1; O2SAT 94–97
[2020-05-06] MEDS: heparin 5,000 unit/mL INJ 1 mL 5000 UNIT SUBCUT ×3 (00:43→15:50)
[2020-05-06] MEDS: oxybutynin 5 mg Tablet 10 MG PO (08:36)
[2020-05-06] MEDS: FUROsemide 20 mg Tablet PO (08:37)
[2020-05-06] MEDS: aspirin 81 mg EC Tablet PO (08:37)
[2020-05-06] MEDS: docusate sodium 100 mg Capsule PO ×2 (08:37→17:24)
[2020-05-06] MEDS: allopurinol 300 mg Tablet PO (08:38)
[2020-05-06] MEDS: hyDRALAzine 10 mg Tablet PO ×3 (08:38→20:30)
[2020-05-06] MEDS: donepezil 5 MG Tablet PO (08:38)
[2020-05-06] MEDS: fluoxetine 20 mg Capsule PO (08:38)
[2020-05-06] MEDS: ferrous sulfate EC 325 mg Tablet PO (08:39)
[2020-05-06] MEDS: metoprolol succinate ER (24 HR) 25 mg Tablet 12.5 MG PO (08:39)
[2020-05-06] MEDS: pantoprazole DR 40 mg Tablet PO (08:39)
[2020-05-06] MEDS: polyethylene glycol 3350 Pkt 17 gm PO (08:41)
--- NOTE | 2020-05-06 10:05 | PC.NURSE ---
Dr. castro in room for assessment and discussion of POC. patient is agreement with POC of going to HC
--- NOTE | 2020-05-06 12:04 | NM_ITS ---
WS: [id number] NUCLEAR MEDICINE LUNG VENTILATION AND PERFUSION CLINICAL INFORMATION: pe TECHNIQUE: Ventilation/perfusion lung scan with 30.5 mCi technetium 99m DTPA. 5.1 mCi technetium 99m MAA COMPARISON: Radiograph May 02, 2020 FINDINGS: Correlation with radiograph May 02, 2020. Patchy heterogeneous radiotracer deposition on the ventila tory images consistent with chronic emphysematous change. Central deposition along the proximal bronc hi. Symmetric radiotracer uptake on the perfusion images. A few matched defects. No mismatched ventil ation/perfusion defects to indicate pulmonary embolus. Exam interpreted using the PIOPED II criteria 2008: 1. Normal 2. High probability (> 80%) 3. Intermediate probability (20-79%) 4. Low probability (10-19%) 5. Very low probability (<10%) JNM 2006 6. Indeterminate NM/NM pul vent and perfus* 16452 IMPRESSION: 1. Low probability for pulmonary embolus.
--- NOTE | 2020-05-06 16:51 | PC.NURSE ---
patient has been up to chair for meals and walked with PT this shift patient has had no reports of chest pain or discomfort V/s WNL
--- NOTE | 2020-05-06 19:00 | PC.NURSE ---
Received report from Deborah Messina RN. Patient resting in bed, aaox3 at present. Patient is agreeable and denies needs or discomforts at this time. No distress observed.
--- NOTE | 2020-05-06 19:46 | P.PN_ITS ---
Subjective Subjective: Interval history: No acute events overnight. T-max in last 24 hours afebrile. On examination today denies having nausea, vomiting, headache, palpitation, chest pain. Vitals/I&O/Wt Last Vital Signs Temp 98.7 F 05/06/20 19:25 Pulse 75 05/06/20 19:25 Resp 23 H 05/06/20 19:25 BP 99/50 05/06/20 19:25 Pulse Ox 96 05/06/20 19:25 05/06/20 05/06/20 05/06/20 06:59 14:59 22:59 Intake Total 200 / 780 1140 / 1140 360 / 1500 Output Total 1300 / 1300 600 / 1900 Balance 200 / 430 -160 / -160 -240 / -400 Weight last 48 hrs Weight 58.06 kg Physical Exam Narrative: EXAM NARRATIVE: General: No acute distress, AO x3 HEENT: PERRLA, pupils bilaterally equal and reactive Chest: Normal vesicular breath sounds, no added sounds, equal good air entry bilaterally CVS: S1-S2 regular, no murmurs, no tachycardia, no gallops, no rubs Abdomen: Soft, nontender, no organomegaly, bowel sounds present Neuro: No focal deficits, no facial deformity, AO x3, power 5/5 in all limbs Extremities bilateral pulses equal and palpable, no localized tenderness, no localized warmth, bilateral calf seem equal in size Data : 05/05/20 04:34 05/05/20 04:34 A&P Assessment and plan (1) Fever of unknown origin: Status: Acute (2) Chronic kidney disease, stage 3 (moderate): Status: Acute (3) Congestive heart failure: Status: Acute (4) Dementia: Status: Acute Additional A&P Information Labs vacation today Fever without active source: No sepsis on admission. COVID-19 has been negative twice with last negative on May 03, 2020 Pro-Joe negative, CRP ESR mildly elevated, d-dimer 2.245 and elevated. Patient has remained afebrile other than T-max of 99.4 since admission and 100.1 at the time of admission, off antibiotics since admission, chest x-ray negative for any infiltrates, no signs of UTI with a normal urinalysis, no diarrhea, cough, abdominal pain, nausea Given the mildly elevated d-dimer and patient having fever as an outpatient other causes of fever were entertained. Lower limb Dopplers negative for DVT, VQ scan very low probability for PE. Patient has remained afebrile. Nonischemic cardiomyopathy: EF of 10 to 15% Had a negative cardiac catheterization in October 2019 Well compensated HF Continue home dose of Lasix. Continue decreased dose of hydralazine as blood pressures have been stable on that. We will start patient on home dose of metoprolol. Strict input output charting, daily weights. Chronic kidney disease stage III Current creatinine 1.1 improving Hypertension Hyperlipidemia History of COPD? During her last hospitalization there was concerns for possible COPD, no imaging on the lungs, no history of pulmonary function testing, but was on inhalers at one point, no smoking history History obstructive sleep apnea Alzheimer's dementia Continue donepezil, prozac DVT prophylaxis: Heparin Cardiac diet Full code Given the social issues patient would need SNF placement. On further confirm ation from care coordination today patient still has not been accepted at [facility] and is under going preauthorization. Patient is not able to be discharged to SNF would most likely arrange for home with home health. Patient is agreeable for the same. Attestations Medical Necessity Statement*: FUO Time Spent in Patient Care: Greater than 35 minutes Coding Level of Care Code Acute Bottling Room Worker for Lisbeth Fwd Diagnoses Fever of unknown origin R50.9 Chronic kidney disease, stage 3 (moderate) N18.3 Congestive heart failure I50.9 Dementia F03.90
[2020-05-06] MEDS: atorvastatin 40 mg Tablet 20 MG PO (20:30)
[2020-05-07] VITALS (7 sets, daily range): BP systolic 112–144; BP diastolic 59–80; PULSE 60–112; RESP 14–18; TEMP 36–37.1; O2SAT 96–99
[2020-05-07] MEDS: heparin 5,000 unit/mL INJ 1 mL 5000 UNIT SUBCUT ×3 (00:23→15:19)
[2020-05-07 04:47] LABS: Basophils % 0.2 %; Eosinophils # 0.2 10^3/uL (0.0-0.8); Eosinophils % 4.1 %; Hematocrit 34.7 % (37.0-47.0); Hemoglobin 10.6 g/dL (11.5-15.3); Lymphocytes # 1.9 10^3/uL (0.8-4.8); Lymphocytes % 44.2 %; Mean Corpuscular HGB Conc 30.5 g/dL (30.0-36.0); Mean Corpuscular Hemoglobin 26.2 pg (28.0-34.0); Mean Corpuscular Volume 85.9 fL (81-99); Mean Platelet Volume 11.2 fL (7.4-10.4); Monocytes # 0.5 10^3/uL (0.2-0.9); Monocytes % 10.6 %; Neutrophils # 1.8 10^3/uL (1.8-7.7); Neutrophils % 40.7 %; Nucleated Red Blood Cells % 0 %; Platelet Count 196 10^3/cmm (130-400); Red Blood Count 4.04 10^6/uL (4.1-5.3); Red Cell Distribution Width 17.6 % (12.1-15.1); White Blood Count 4.3 10^3/uL (4.0-10.0)
--- NOTE | 2020-05-07 05:01 | PC.NURSE ---
Patient to be transferred to [facility]. Received authorization from Dr Simon.
[2020-05-07 05:10] LABS: Alanine Aminotransferase 29 U/L (0-33); Albumin Level 3.1 g/dL (3.5-5.2); Alkaline Phosphatase 115 IU/L (35-105); Anion Gap 15.8 (5-19); Aspartate Amino Transferase 50 U/L (0-32); Blood Urea Nitrogen 39 mg/dL (8-23); Calcium 9.4 mg/dL (8.5-10.5); Carbon Dioxide 24 mmol/L (22-29); Chloride 100 mmol/L (98-107); Globulin 3.1 g/dL (1.3-4.6); Glomerular Filtration Rate 40.5 mL/min (90-130); Glucose 95 mg/dL (65-115); Osmolality Calculated 277 mOsm/kg (285-295); Potassium 4.8 mmol/L (3.5-5.1); Sodium 135 mmol/L (136-145); Total Bilirubin 0.3 mg/dL (0.15-1.2); Total Protein 6.2 g/dL (6.6-8.7)
--- NOTE | 2020-05-07 05:12 | PC.NURSE ---
Patient transferred to room 276-1. Report called and given to EDSON Clark. Patient taken by wheelchair. No distress observed.
[2020-05-07] MEDS: FUROsemide 20 mg Tablet PO (07:54)
[2020-05-07] MEDS: donepezil 5 MG Tablet PO (07:55)
[2020-05-07] MEDS: allopurinol 300 mg Tablet PO (07:55)
[2020-05-07] MEDS: docusate sodium 100 mg Capsule PO ×2 (07:55→15:19)
[2020-05-07] MEDS: aspirin 81 mg EC Tablet PO (07:55)
[2020-05-07] MEDS: oxybutynin 5 mg Tablet 10 MG PO (07:56)
[2020-05-07] MEDS: ferrous sulfate EC 325 mg Tablet PO (07:56)
[2020-05-07] MEDS: metoprolol succinate ER (24 HR) 25 mg Tablet 12.5 MG PO (07:56)
[2020-05-07] MEDS: fluoxetine 20 mg Capsule PO (07:56)
[2020-05-07] MEDS: pantoprazole DR 40 mg Tablet PO (07:56)
[2020-05-07] MEDS: polyethylene glycol 3350 Pkt 17 gm PO (07:57)
[2020-05-07] MEDS: hyDRALAzine 10 mg Tablet PO ×2 (07:57→15:19)
--- NOTE | 2020-05-07 10:39 | PC.SOCIAL ---
IMM completed 05/07/20 @ 1016
--- NOTE | 2020-05-07 16:45 | P.DS_ITS ---
Discharge Providers Date of Admission: 05/04/20 08:40 Date of Discharge: May 07, 2020 Attending Provider at Admission: David Simon MD Attending Provider at Discharge: Gianni Bustamante MD Primary Care Provider: Chris Puentes Diagnoses at Discharge Discharge Diagnosis (1) Fever of unknown origin: Status: Acute (2) Chronic kidney disease, stage 3 (moderate): Status: Acute (3) Congestive heart failure: Status: Acute Problem details: Failure reduced EF 10 to 15% (4) Dementia: Status: Acute Reason for Visit Reason for Visit: FEVER / WEAKNESS Hospital Course Discharge Summary: Valerie Mueller is a 70 year old female who carries a history of Alzheimer's dementia, pulmonary hypertension, severely reduced ejection fraction 10 to 15%, nonischemic cardiomyopathy, transferred from [facility] to rule out COVID. Patient was admitted at the [facility] for a day for management of CHF exacerbation. She was diuresed and sent home. Today at [facility] clinic noticed temp 101 and was asked to get further evaluation. Diagnostics at the [facility] were unremarkable, strep antigen negative, chest x-ray showed pulmonary congestion, creatinine 1.24, urinalysis did not reveal any signs of infection, no source of fever was identified, they did not had rapid PCR for COVID hence was transferred to our facility for further evaluation on family's request. Patient was saturating well on room air at the facility, hemodynamically stable, temp 101, initially she was tachycardic around 101, she was given 20 mg of Lasix and Tylenol. Patient remained afebrile during hospitalization. COVID-19 was ruled out twice with last negative on May 03, 2020, urine studies were negative for UTI, chest x-ray was negative for any infiltrate and was negative, patient remained afebrile, hemodynamic is stable off antibiotics hospitalization. Patient d- dimer was mildly elevated so possible thrombosis entertain for a possible cause of low-grade fevers. Lower limb Dopplers, VQ scan was negative for any thrombosis. CTA PE could not be done because of baseline abnormal renal functions. Patient remains euvolemic with stable on her cardiac medications. Patient was found to be having lower blood pressures with are being unsteady on her feet because of which her antihypertensives were adjusted. For safe discharge family discussions were held. Patient's family suggested back patient lives by herself and usually is not able to take care of her self and family members also find it difficult to check up on her because of busy schedule and because they live a little far from her house. Severe deconditioning. For safe discharge SNF placement was sought. But unfortunately due to financial issues SNF/assisted living placement was not possible as patient needed to pay high co-pay. Home health has been arranged. Family members and both patient are agreeable and verbalized back given her frail condition they will check up on her more frequently. Family members, patient has been provided with hotline numbers in case of an emergency. Patient is been discharged in hemodynamically stable condition and to avoid falls her antihypertensives have been adjusted, dose of hydralazine has been decreased, Imdur has been withheld. Physical Exam Narrative: EXAM NARRATIVE: General: No acute distress, AO x3 HEENT: PERRLA, pupils bilaterally equal and reactive Chest: Normal vesicular breath sounds, no added sounds, equal good air entry bilaterally CVS: S1-S2 regular, no murmurs, no tachycardia, no gallops, no rubs Abdomen: Soft, nontender, no organomegaly, bowel sounds present Neuro: No focal deficits, no facial deformity, AO x3, power 5/5 in all limbs Extremities bilateral pulses equal and palpable, no localized tenderness, no localized warmth, bilateral calf seem equal in size Discharge Data Data Completed and Pending: Completed Studies During Hospitalization Category Date Time Status XR chest 1V adama ble [id number] Stat Exams 05/02/20 00:28 Completed NM pul vent and p erfus* [id number] Routi ne Nuc Med 05/06/20 12:04 [place] [id number] Urgent Ultrasound 05/05/20 12:05 Completed Labs from last 24 hours 05/07/20 05/07/20 03:35 03:35 WBC 4.3 RBC 4.04 L Hgb 10.6 L Hct 34.7 L MCV 85.9 MCH 26.2 L MCHC 30.5 RDW 17.6 H Plt Count 196 MPV 11.2 H Neut % (Auto) 40.7 Lymph % (Auto) 44.2 [place] % (Auto) 10.6 Eos % (Auto) 4.1 Baso % (Auto) 0.2 Neut # (Auto) 1.8 Lymph # (Auto) 1.9 [place] # (Auto) 0.5 Eos # (Auto) 0.2 Baso # (Auto) 0.0 Nucleated RBC % (a uto) 0 Nucleated RBCs # 0.0 Sodium 135 L Potassium 4.8 Chloride 100 Carbon Dioxide 24 Anion Gap 15.8 BUN 39 H Creatinine 1.3 H GFR Calculation 40.5 L Glucose 95 Calculated Osmolal ity 277 L Calcium 9.4 Total Bilirubin 0.3 AST 50 H ALT 29 Alkaline Phosphata se 115 H Total Protein 6.2 L Albumin 3.1 L Globulin 3.1 Vitals: Last Vital Signs Temp 98.6 F 05/07/20 16:00 Pulse 65 05/07/20 16:00 Resp 18 05/07/20 16:00 BP 112/62 05/07/20 16:00 Pulse Ox 98 05/07/20 16:00 Discharge Plan Discharge Patient Disposition: Home Health Service Condition: Stable Prescriptions: Continued donepezil 5 mg tablet 5 mg PO BEDTIME RF: 0 escitalopram oxalate 10 mg tablet 15 mg PO DAILY RF: 0 allopurinol 300 mg tablet 300 mg PO DAILY RF: 0 aspirin 81 mg tablet,delayed release (DR/EC) 81 mg PO DAILY RF: 0 esomeprazole magnesium 40 mg capsule,delayed release(DR/EC) 40 mg PO DAILY RF: 0 furosemide 20 mg tablet 40 mg PO DAILY RF: 0 metoprolol succinate 25 mg capsule,sprinkle,ER 24hr 12.5 mg PO BID RF: 0 nitroglycerin 0.4 mg tablet, sublingual 0.4 mg SUBLINGUAL Q5M PRN (Reason: Chest Pain) RF: 0 oxybutynin chloride 10 mg tablet extended release 24hr 10 mg PO DAILY RF: 0 potassium chloride 20 mEq tablet extended release 20 meq PO DAILY RF: 0 simvastatin 20 mg tablet 20 mg PO BEDTIME RF: 0 fluoxetine 20 mg tablet 20 mg PO DAILY RF: 0 ferrous sulfate 325 mg (65 mg iron) Tablet 325 mg PO DAILY RF: 0 magnesium oxide 500 mg Tablet 500 mg PO BID RF: 0 nystatin 100,000 unit/gram Cream 1 applic TOPICAL BID RF: 0 clotrimazole 1 % Cream 1 applic TOPICAL DAILY PRN (Reason: Rash) RF: 0 Calcium 600 with Vitamin D3 600 mg(1,500mg) -500 unit Capsule 1 cap PO DAILY RF: 0 Changed hydralazine 25 mg tablet 12.5 mg PO TID Qty: 30 RF: 0 Discontinued isosorbide dinitrate 20 mg tablet 10 mg PO BID RF: 0 Discharge Orders: Discharge Order (Routine); Ordered 05/07/20 Ordered By: Gianni Bustamante Other Ambulatory Orders: DME: Walker (Order) Location: None Selected Ordered By: Gianni Bustamante Referrals: [facility] [Other] [facility] [place] Home Care ([facility]) [Outside] (Nurse will be out on Tuesday05/11/2020 for initial evaluation. Please call them by Tuesday if you have not received a call or visit. ) Chris Puentes [Primary Care Provider] - 05/15/20 11:00 am Discharge Diet: Cardiac Discharge Activity: Resume usual activity Patient Instructions: Fever - Adult, Dementia (GEN) Discharge Date/Time: 05/07/20 18:01 Discharge Attestations Time Spent in Discharge Care*: greater than 30 min Quality Metrics Clinical Quality Measures During this hospital stay, did patient experience: None Coding Level of Care Code Acute Mica Washer Gluer for g Fwd Diagnoses Fever of unknown origin R50.9 Chronic kidney disease, stage 3 (moderate) N18.3 Congestive heart failure I50.9 Dementia F03.90
== END 2020-05-07 18:01 | disposition home health service (06) | DRG 864 ==
LOC: ER 05-02 00:29 → CSU 05-02 00:38 → MEDSURG 05-07 05:03
PROVIDERS: Emergency Medicine; Family Medicine; Admitting Provider Internal Medicine; PCP Family Medicine; Visit Provider Student in an Organized Health Care Education/Training Program
DX: R50.9 Fever, unspecified (principal); I42.8 Other cardiomyopathies; I12.9 Hypertensive chronic kidney disease with stage 1 through stage 4 chronic kidney disease, or unspecified chronic kidney disease; M19.90 Unspecified osteoarthritis, unspecified site; Z79.82 Long term (current) use of aspirin; N18.3 Chronic kidney disease, stage 3 (moderate); Z11.59 Encounter for screening for other viral diseases; E78.5 Hyperlipidemia, unspecified; J44.9 Chronic obstructive pulmonary disease, unspecified; G30.9 Alzheimer's disease, unspecified; F02.80 Dementia in other diseases classified elsewhere, unspecified severity, without behavioral disturbance, psychotic disturbance, mood disturbance, and anxiety; I27.20 Pulmonary hypertension, unspecified; E11.22 Type 2 diabetes mellitus with diabetic chronic kidney disease; D63.1 Anemia in chronic kidney disease; G47.33 Obstructive sleep apnea (adult) (pediatric)
CPT/HCPCS: 12345; 36415; 36416; 36600; 71045; 78014; 80048; 80053; 82728; 82803; 82962; 83036; 83615; 83735; 83880; 84100; 84145; 85025; 85378; 86140; 86403; 87449; 87635; 93970; 96372; 97116; 97161; 97165; 97530; 99283; A9540; A9567; G0378; J1644; J3490

== ENCOUNTER → 2021-10-15 09:16 | Outpatient (BNVA) | payer MEDICARE, OTHER, SELFPAY | PROVIDERS: PCP Family Medicine; Visit Provider Obstetrics & Gynecology | DX: N95.0 Postmenopausal bleeding (principal) | CPT/HCPCS: 76830 ==

== ENCOUNTER 2022-02-10 15:25 | Inpatient (IN) | payer MEDICARE, OTHER, SELFPAY ==
--- NOTE | 2022-02-10 15:38 | ED_ITS ---
HPI - General Adult General: Chief complaint: Weakness Stated complaint: HYPERTENSION Time Seen by Provider: 02/10/22 15:37 History of Present Illness: Ms. Mueller is a 71-year-old lady with history of dementia and hypertension who presents to the emergency department for somewhat unclear reasons, concern regarding hypertension perhaps. The patient herself endorses various concerns however cannot articulate whether any of these are more recent or more frequent recently. Reliability is questionable due to underlying dementia. Supplemental information upon discussing with patient's nurse at detention is that for the past 3 days she has been Concerned regarding increased dizziness and at times chest discomfort. She was seen less active. Review of Systems General: Reports: ROS unobtainable due to mental status PFSH ED PFSH: Medical History Abnormal colonoscopy Polyp removal Anemia Bladder wall thickening Bundle branch block Chronic kidney disease, stage 3 (moderate) Congestive heart failure Failure reduced EF 10 to 15% Dementia Diabetes mellitus Gout Hypertension Iron deficiency anemia Memory Loss Moderate pulmonary arterial systolic hypertension Nonischemic cardiomyopathy Obstructive sleep apnea Osteoarthritis Type 2 diabetes mellitus Surgical History H/O bladder repair surgery History of cardiac cath History of hysterectomy History of knee replacement S/P cholecystectomy Family History Sister Hypertension Hyperlipidemia Social History Smoking and tobacco status: never smoked Physical Exam Const: COMMON NORMALS: alert; negative for patient oriented x3 GENERAL APPEARANCE: cooperative and well developed HENMT: COMMON NORMALS: normocephalic and atraumatic HEAD & SCALP: normocephalic and atraumatic THROAT: posterior oropharynx normal Eye: COMMON NORMALS: conjunctivae normal CONJUNCTIVA: Yes conjunctivae normal SCLERA: sclerae normal Neck/C-Spine: COMMON NORMALS: supple GENERAL: Yes trachea midline Resp: COMMON NORMALS: clear to auscultation bilaterally EFFORT & INSPECTION: Yes able to speak in complete sentences AUSCULTATION: clear to auscultation bilaterally Cardio: COMMON NORMALS: regular rate and regular rhythm RATE: regular rate RHYTHM: regular rhythm GI: COMMON NORMALS: Soft to palpation PALPATION: Yes Soft to palpation and No Tenderness to palpation present (GI) PERCUSSION: normal to percussion Extremity: GENERAL: Yes normal exam except as noted and No edema Neuro: COMMON NORMALS: CN's II-XII intact bilaterally, moves all extremities, no focal motor deficits and no sensory deficits noted; negative for patient oriented x3 SENSORIUM/ORIENTATION: Yes alert and Yes Orientation impaired Course ED course: - Patient was seen and evaluated by me at bedside - Patient placed on cardiac monitors, IV access obtained - Initial evaluation notable for exam as above, pleasantly demented with no focal findings. Patient is not significantly hypertensive to the point of requiring intervention. - Labs and xrays personally interpreted by me - Labs notable for no leukocytosis, normal hemoglobin. Metabolic panel with mildly elevated creatinine, electrolytes normal. Surprisingly marked transaminitis. Delta troponin negative. BNP significantly elevated though no recent baseline for comparison. No evidence of gross fluid overload on clinical exam. - Imaging notable for no lobar consolidation or pneumothorax. CT head without acute intracranial hemorrhage or mass. Abdominal ultrasound severely limited. Patient denied history of cholecystectomy however once again reliability is questionable. On CT abdomen pelvis as well as chest there is perhaps patchy infiltrate in the lungs. Antibiotics ordered. No acute other abnormality identified as cause of marked transaminitis. - Upon serial reexamination after treatment the patient was similar - Based on patient history, evaluation, and testing as interpreted the most likely cause of the patient's condition is possible pneumonia, congestive heart failure, and transaminitis of unclear etiology. - The results of ED evaluation were discussed with the patient including plan for admission due to requirement for level of care not available if discharged to prevent significant worsening/deterioration. - Admitting service was contacted and Dr Hernandez with the hospitalist service agreed to admit the patient - Patient was admitted without further deterioration or significant events. Note: Click bubbles or prepopulated jarrell in note writing are used for assistance with data collection and billing and are inherently more limited than narrative and other text portions of this note. Please use narrative for additional clinical history and defer to narrative/free test for any case of contradictory information. If information appears in only free text or click bubble it should be considered present or absent as reported. Please contact note telegraphic typewriter installer for clarifications of clinical information or contradictory information. MDM is a brief summary, contradictory or erroneous seeming information should be clarified and full note should be reviewed. Vital Signs: Vital signs: Vital Signs Temperature 98.0 F 02/14/22 20:00 Pulse Rate 84 02/14/22 21:58 Respiratory Rate 16 02/14/22 20:00 Blood Pressure 154/87 02/14/22 20:00 Pulse Oximetry 98 02/14/22 20:00 MDM - General Adult Medical Decision Making 71-year-old lady with history of dementia presenting with unclear history initially and questionable hypertension though upon later clarification patient more somnolent and altered than baseline. ED evaluation with possible evidence of pneumonia which was treated with antibiotics. Unclear etiology of significant transaminitis. Admitted for further evaluation and management. Medical Records I reviewed the patient's medical records. Lab Data I reviewed the patient's lab results. : 02/14/22 03:20 02/14/22 03:20 Radiology Impressions Chest X-Ray 02/10/22 15:47 IMPRESSION: Cardiomegaly, lungs are clear Head CT 02/10/22 15:47 IMPRESSION: Negative for intracranial hemorrhage or mass effect Abdomen Ultrasound 02/10/22 19:47 IMPRESSION: Gallbladder is not well visualized, however, no definite gallbladder stones are seen. A positive Vital's sign is present. Consider further evaluation with nuclear medicine HIDA scan if concern for cholecystitis remains. Chest/Abdomen/Pelvis CT 02/10/22 22:02 IMPRESSION: 1. Negative for pulmonary embolus. 2. Patchy bilateral airspace infiltrates. 3. Small to moderate right pleural effusion and trace left pleural effusion. 4. Cardiomegaly. 5. Minimal coronary artery atherosclerotic calcifications. 6. Prominent mediastinal lymph nodes measuring up to 16 mm, nonspecific. IMPRESSION: 1. Negative for acute inflammatory process in the abdomen or pelvis. 2. Cholecystectomy. 3. Diverticulosis without diverticulitis. 4. Small hiatal hernia. 5. Small supraumbilical ventral abdominal hernia containing omentum without bowel. 6. Moderate left inguinal hernia containing omentum without bowel. Laboratory Results WBC 9.2 10^3/uL (4.0-10.0) 02/10/22 16:00 RBC 4.36 10^6/uL (4.1-5.3) 02/10/22 16:00 Hgb 12.1 g/dL (11.5-15.3) 02/10/22 16:00 Hct 39.2 % (37.0-47.0) 02/10/22 16:00 MCV 89.9 fl (81-99) 02/10/22 16:00 MCH 27.8 pg (28.0-34.0) L 02/10/22 16:00 MCHC 30.9 g/dL (30.0-36.0) 02/10/22 16:00 RDW 17.8 % (12.1-15.1) H 02/10/22 16:00 Plt Count 148 10^3/cmm (130-400) 02/10/22 16:00 MPV 11.9 fL (7.4-10.4) H 02/10/22 16:00 Neut % (Auto) 65.3 % 02/10/22 16:00 Lymph % (Auto) 24.8 % 02/10/22 16:00 [place] % (Auto) 8.8 % 02/10/22 16:00 Eos % (Auto) 0.3 % 02/10/22 16:00 Baso % (Auto) 0.3 % 02/10/22 16:00 Neut # (Auto) 5.98 10^3/uL (1.8-7.7) 02/10/22 16:00 Lymph # (Auto) 2.3 10^3/uL (0.8-4.8) 02/10/22 16:00 [place] # (Auto) 0.8 10^3/uL (0.2-0.9) 02/10/22 16:00 Eos # (Auto) 0.0 10^3/uL (0.0-0.8) 02/10/22 16:00 Baso # (Auto) 0.0 10^3/uL (0.0-0.1) 02/10/22 16:00 Nucleated RBC % (auto) 0.4 % 02/10/22 16:00 Nucleated RBCs # 0.0 /100WBC 02/10/22 16:00 Sodium 138 mmol/L (136-145) 02/10/22 16:30 Potassium 4.3 mmol/L (3.5-5.1) 02/10/22 16:30 Chloride 104 mmol/L (98-107) 02/10/22 16:30 Carbon Dioxide 18 mmol/L (22-29) L 02/10/22 16:30 Anion Gap 20.3 (5-19) H 02/10/22 16:30 BUN 47 mg/dL (8-23) H 02/10/22 16:30 Creatinine 1.4 mg/dL (0.5-0.9) H 02/10/22 16:30 GFR Calculation Not Reportable 02/10/22 16:30 Glucose 113 mg/dL (65-115) 02/10/22 16:30 Calculated Osmolality 299 mOsm/kg (285-295) H 02/10/22 16:30 Calcium 9.8 mg/dL (8.5-10.5) 02/10/22 16:30 Magnesium 2.0 mg/dL (1.7-2.3) 02/10/22 16:30 Total Bilirubin 2.6 mg/dL (0.15-1.2) H 02/10/22 16:30 AST 866 U/L (0-32) H 02/10/22 16:30 ALT 931 U/L (0-33) H 02/10/22 16:30 Alkaline Phosphatase 192 IU/L (35-105) H 02/10/22 16:30 Troponin T Baseline 52 ng/L (0-10) H 02/10/22 16:30 Troponin T 120 Minute 52.03 ng/L (0-10) H 02/10/22 18:39 Delta Troponin T 0.03 ABS# (0-10) 02/10/22 18:39 Troponin T Hi Sens 6Hr 47.77 ng/L (0-10) H 02/10/22 22:53 Troponin T Hi Sens 6Hr Delta -4.23 ng/L (0-12) L 02/10/22 22:53 NT-Pro-B Natriuret Pep 16903 pg/mL (0-125) H 02/10/22 16:30 Total Protein 7.2 g/dL (6.6-8.7) 02/10/22 16:30 Albumin 3.9 g/dL (3.5-5.2) 02/10/22 16:30 Globulin 3.3 g/dL (1.3-4.6) 02/10/22 16:30 Lipase 45 U/L (13-60) 02/10/22 16:30 TSH 2.58 uIU/mL (0.27-4.20) 02/10/22 16:30 TSH 2.69 uIU/mL (0.27-4.20) 02/10/22 16:30 Free T4 1.69 ng/dL (0.82-1.77) 02/10/22 16:30 Urine Color Dark yellow (Yellow) 02/10/22 19:50 Urine Appearance Clear (CLEAR) 02/10/22 19:50 Urine pH 5 (5-7) 02/10/22 19:50 Ur Specific [place] 1.025 (1.005-1.030) 02/10/22 19:50 Urine Protein 3+ (Negative) H 02/10/22 19:50 Urine Glucose (UA) Norm (Normal) 02/10/22 19:50 Urine Ketones Negative (Negative) 02/10/22 19:50 Urine Blood 2+ (Negative) H 02/10/22 19:50 Urine Nitrate Negative (Negative) 02/10/22 19:50 Urine Bilirubin 1+ (Negative) H 02/10/22 19:50 Urine Urobilinogen 4 mg/dL (Negative) H 02/10/22 19:50 Ur Leukocyte Esterase Trace (Negative) H 02/10/22 19:50 Urine RBC 0-4 /hpf (0-2) H 02/10/22 19:50 Urine WBC 0-4 /hpf (0-5) H 02/10/22 19:50 Ur Squamous Epith Cells 0-4 /hpf (0-5) H 02/10/22 19:50 Amorphous Sediment Not Reportable 02/10/22 19:50 Urine Bacteria Trace /hpf (NONE) 02/10/22 19:50 Urine Mucus Trace /hpf 02/10/22 19:50 Acetaminophen 5.2 ug/mL (10-30) L 02/10/22 16:30 Ethyl Alcohol < 10 mg/dL (0-10) 02/10/22 16:30 Hepatitis A IgM Ab TNP 02/10/22 22:53 Hep Bs Antigen Non-reactive (Nonreactive) 02/10/22 22:53 Hep B Core IgM Ab Non-reactive (Nonreactive) 02/10/22 22:53 Hepatitis C Antibody Non-reactive (Nonreactive) 02/10/22 22:53 Discharge Plan Discharge Patient Disposition: Placed in Observation Admit Provider: Aixa Hernandez Clinical Impression: Dementia, Acute on chronic congestive heart failure, Hypoxemia, Pneumonia, Transaminitis Coding Level of Care Code ED Swine Nutritionist for Lisbeth Osorio
[2022-02-10 15:41] VITALS: BP 178/115; PULSE 93; RESP 16; TEMP 36.4; O2SAT 92; BMI 27.4
--- NOTE | 2022-02-10 15:47 | XRR_ITS ---
PROCEDURE INFORMATION: Exam: XR Chest Exam date and time: 02/10/2022 4:08 PM Age: 71 years old Clinical indication: Pain; Other: Weakness; Angina pectoris; Additional info: Chest pain TECHNIQUE: Imaging protocol: XR of the chest. Views: 1 view. COMPARISON: CR XR chest 1V portable [id number] 05/02/2020 12:33 AM FINDINGS: Lungs: Unremarkable. No consolidation. Pleural spaces: Unremarkable. No pleural effusion. No pneumothorax. Heart/Mediastinum: Cardiomegaly. Bones/joints: Unremarkable. XR/XR chest 1V portable [id number] IMPRESSION: Cardiomegaly, lungs are clear
--- NOTE | 2022-02-10 15:47 | CTR_ITS ---
PROCEDURE INFORMATION: Exam: CT Head Without Contrast Exam date and time: 02/10/2022 4:06 PM Age: 71 years old Clinical indication: Altered mental status/memory loss and dizziness; Additional info: Dizzy, AMS TECHNIQUE: Imaging protocol: Computed tomography of the head without contrast. Radiation optimization: All CT scans at this facility use at least one of these dose optimization techniques: automated exposure control; mA and/or kV adjustment per patient size (includes targeted exams where dose is matched to clinical indication); or iterative reconstruction. COMPARISON: No relevant prior studies available. RADIATION DOSE METRICS: Total DLP (mGy-cm): 795.4 FINDINGS: Brain: Moderate diffuse white matter disease likely reflecting chronic microvascular ischemic changes. Cerebral ventricles: No ventriculomegaly. Paranasal sinuses: Visualized sinuses are unremarkable. No fluid levels. Mastoid air cells: Visualized mastoid air cells are well aerated. Bones/joints: Unremarkable. No acute fracture. Soft tissues: Unremarkable. CT/CT head wo con* [id number] IMPRESSION: Negative for intracranial hemorrhage or mass effect
--- NOTE | 2022-02-10 15:48 | ECG_ITS ---
[facility] Test Date: 2022-02-10 Pat Name: Valerie Mueller Department: Room: Gender: Female Clerical Associate: : 1950 Requested By: Gelacio Ramos Order Number: [id number] Mills MD: Tamkio Munoz M.D. Measurements Intervals [place] Rate: 90 P: 78 MT: 200 QRS: -87 QRSD: 173 T: 74 QT: 449 QTc: 551 Interpretive Statements SINUS RHYTHM POSSIBLE LEFT ATRIAL ENLARGEMENT [-0.1mV P-WAVE IN V1/V2] LEFT AXIS DEVIATION [QRS AXIS < -30] INTRAVENTRICULAR CONDUCTION DELAY [130+ ms QRS DURATION] Compared to ECG 10/26/2019 16:58:10 Left-axis deviation now present Electronically Signed On 02-10-2022 18:22:51 CDT by Tamiko Munoz M.D. [id number]
[2022-02-10 16:08] LABS: Basophils % 0.3 %; Eosinophils % 0.3 %; Hematocrit 39.2 % (37.0-47.0); Hemoglobin 12.1 g/dL (11.5-15.3); Lymphocytes # 2.3 10^3/uL (0.8-4.8); Lymphocytes % 24.8 %; Mean Corpuscular HGB Conc 30.9 g/dL (30.0-36.0); Mean Corpuscular Hemoglobin 27.8 pg (28.0-34.0); Mean Corpuscular Volume 89.9 fl (81-99); Mean Platelet Volume 11.9 fL (7.4-10.4); Monocytes # 0.8 10^3/uL (0.2-0.9); Monocytes % 8.8 %; Neutrophils # 5.98 10^3/uL (1.8-7.7); Neutrophils % 65.3 %; Nucleated Red Blood Cells % 0.4 %; Platelet Count 148 10^3/cmm (130-400); Red Blood Count 4.36 10^6/uL (4.1-5.3); Red Cell Distribution Width 17.8 % (12.1-15.1); White Blood Count 9.2 10^3/uL (4.0-10.0)
[2022-02-10 16:15] VITALS: BP 156/102; PULSE 92; O2SAT 93
[2022-02-10 17:23] LABS: Troponin(5th) Baseline 52 ng/L (0-10)
--- NOTE | 2022-02-10 17:48 | ECG_ITS ---
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 Measurements Intervals [place] Rate: 93 P: 81 MO: 188 QRS: 261 QRSD: 181 T: 67 QT: 444 QTc: 553 Interpretive Statements SINUS RHYTHM POSSIBLE LEFT ATRIAL ENLARGEMENT [-0.1mV P-WAVE IN V1/V2] RIGHT AXIS DEVIATION [QRS AXIS > 100] INTRAVENTRICULAR CONDUCTION DELAY [130+ ms QRS DURATION] Compared to ECG 02/10/2022 16:27:04 Right-axis deviation now present Left-axis deviation no longer present Electronically Signed On 02-10-2022 18:28:23 CDT by Tamiko Munoz M.D. [id number]
[2022-02-10 18:00] LABS: Albumin Level 3.9 g/dL (3.5-5.2); Chloride 104 mmol/L (98-107); Potassium 4.3 mmol/L (3.5-5.1); Sodium 138 mmol/L (136-145)
[2022-02-10 18:40] VITALS: BP 146/104; PULSE 94; RESP 16; TEMP 36.4; O2SAT 93
[2022-02-10 19:17] LABS: Troponin 5 2HR 52.03 ng/L (0-10); Troponin 5 2HR Delta 0.03 ABS# (0-10)
[2022-02-10 19:23] LABS: Calcium 9.8 mg/dL (8.5-10.5); Globulin 3.3 g/dL (1.3-4.6); Glucose 113 mg/dL (65-115); Thyroid Stimulating Hormone 2.69 uIU/mL (0.27-4.20); Total Protein 7.2 g/dL (6.6-8.7)
[2022-02-10 19:43] LABS: Alanine Aminotransferase 931 U/L (0-33); Alkaline Phosphatase 192 IU/L (35-105); Anion Gap 20.3 (5-19); Aspartate Amino Transferase 866 U/L (0-32); Blood Urea Nitrogen 47 mg/dL (8-23); Carbon Dioxide 18 mmol/L (22-29); Osmolality Calculated 299 mOsm/kg (285-295); Total Bilirubin 2.6 mg/dL (0.15-1.2)
--- NOTE | 2022-02-10 19:47 | USR_ITS ---
PROCEDURE INFORMATION: Exam: US Abdomen, Limited; Right Upper Quadrant Exam date and time: 02/10/2022 8:09 PM Age: 71 years old Clinical indication: Abdominal pain; Acute; Additional info: Ruq, biliary TECHNIQUE: Imaging protocol: US abdomen. Real time ultrasound with image documentation. Limited exam focused on the right upper quadrant. COMPARISON: US transvaginal [id number] 10/15/2021 9:18 AM FINDINGS: Liver: Normal. No masses. Gallbladder: Gallbladder is not well visualized. Positive Vital's sign. Common bile duct: Normal. No stones. No dilation. Pancreas: Visualized pancreas is unremarkable. Right kidney: Normal. No mass. No hydronephrosis. US/US abdomen limited [id number] IMPRESSION: Gallbladder is not well visualized, however, no definite gallbladder stones are seen. A positive Vital's sign is present. Consider further evaluation with nuclear medicine HIDA scan if concern for cholecystitis remains.
[2022-02-10 20:14] LABS: Bilirubin Urine 1+ (Negative); Blood Urine 2+ (Negative); Glucose Urine UA Norm (Normal); Ketones Urine Negative (Negative); Nitrate Urine Negative (Negative); Protein Urine 3+ (Negative); Specific Gravity, Urine 1.025 (1.005-1.030); Urine Appearance Clear (CLEAR); Urine Color Dark Yellow (Yellow); pH Urine 5 (5-7)
[2022-02-10 20:15] LABS: Add Urine Microscopic? YES; Leukocyte Esterase Urine Trace (Negative); Urobilinogen Urine 4 mg/dL (Negative)
[2022-02-10 20:20] LABS: Add Urine Culture? No; Bacteria Urine TRACE /hpf; Mucus Urine TRACE /hpf; RBC Urine 0-4 /hpf (0-2); Squamous Epithelial Cell Urine 0-4 /hpf (0-5); WBC Urine 0-4 /hpf (0-5)
[2022-02-10 20:35] LABS: Acetaminophen 5.2 ug/mL (10-30); Lipase 45 U/L (13-60)
--- NOTE | 2022-02-10 21:48 | ECG_ITS ---
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 Measurements Intervals [place] Rate: 93 P: 83 WV: 194 QRS: 244 QRSD: 189 T: 59 QT: 441 QTc: 551 Interpretive Statements SINUS RHYTHM RIGHT AXIS DEVIATION [QRS AXIS > 100] LBBB Compared to ECG 02/10/2022 18:19:06 No significant changes Electronically Signed On 02-11-2022 16:14:59 CDT by Peng Rao M.D. [id number]
--- NOTE | 2022-02-10 22:02 | CTR_ITS ---
PROCEDURE INFORMATION: Exam: CT Chest With Contrast; Diagnostic Exam date and time: 02/10/2022 10:25 PM Age: 71 years old Clinical indication: Pain; Chest pressure; Prior surgery; Surgery type: Gb. Cardiac cath. Hysterectomy. Bladder repair. ; Patient HX: Patient C/O chest discomfort. Elevated creat. Patient very lethargic. Limited history. ; Additional info: Volume overload, transaminitis ? etiology TECHNIQUE: Imaging protocol: Diagnostic computed tomography of the chest with contrast. Radiation optimization: All CT scans at this facility use at least one of these dose optimization techniques: automated exposure control; mA and/or kV adjustment per patient size (includes targeted exams where dose is matched to clinical indication); or iterative reconstruction. Contrast material: VISI 320; Contrast volume: 75 ml; Contrast route: INTRAVENOUS (IV); COMPARISON: 1. CR XR chest 1V portable [id number] 02/10/2022 4:08 PM 2. US abdomen limited [id number] 02/10/2022 8:09 PM RADIATION DOSE METRICS: Total DLP (mGy-cm): 1388.16 FINDINGS: Lungs: Patchy bilateral airspace infiltrates. Pleural spaces: Small to moderate right pleural effusion and trace left pleural effusion. Heart: Cardiomegaly. Minimal coronary artery atherosclerotic calcifications. Aorta: Unremarkable. No aortic aneurysm. Lymph nodes: Prominent mediastinal lymph nodes measuring up to 16 mm, nonspecific. Bones/joints: Unremarkable. No acute fracture. Soft tissues: Unremarkable. PROCEDURE INFORMATION: Exam: CT Abdomen And Pelvis With Contrast Exam date and time: 02/10/2022 10:25 PM Age: 71 years old Clinical indication: Pain; Chest pressure; Prior surgery; Surgery type: Gb. Cardiac cath. Hysterectomy. Bladder repair. ; Patient HX: Patient C/O chest discomfort. Elevated creat. Patient very lethargic. Limited history. ; Additional info: Volume overload, transaminitis ? etiology TECHNIQUE: Imaging protocol: Computed tomography of the abdomen and pelvis with contrast. Radiation optimization: All CT scans at this facility use at least one of these dose optimization techniques: automated exposure control; mA and/or kV adjustment per patient size (includes targeted exams where dose is matched to clinical indication); or iterative reconstruction. Contrast material: VISI 320; Contrast volume: 75 ml; Contrast route: INTRAVENOUS (IV); COMPARISON: 1. CR XR chest 1V portable [id number] 02/10/2022 4:08 PM 2. US abdomen limited [id number] 02/10/2022 8:09 PM RADIATION DOSE METRICS: Total DLP (mGy-cm): 1388.16 FINDINGS: Diaphragm: Small hiatal hernia. Liver: Normal. No mass. Gallbladder and bile ducts: Cholecystectomy. Pancreas: Normal. No ductal dilation. Spleen: Normal. No splenomegaly. Adrenal glands: Normal. No mass. Kidneys and ureters: Normal. No hydronephrosis. Stomach and bowel: Diverticulosis without diverticulitis. Appendix: No evidence of appendicitis. Intraperitoneal space: Unremarkable. No free air. No significant fluid collection. Vasculature: Unremarkable. No abdominal aortic aneurysm. Lymph nodes: Unremarkable. No enlarged lymph nodes. Urinary bladder: Unremarkable as visualized. Reproductive: Unremarkable as visualized. Bones/joints: Unremarkable. No acute fracture. Soft tissues: Small supraumbilical ventral abdominal hernia containing omentum without bowel. Moderate left inguinal hernia containing omentum without bowel. CT/CT chest abd pel w con* IMPRESSION: 1. Negative for pulmonary embolus. 2. Patchy bilateral airspace infiltrates. 3. Small to moderate right pleural effusion and trace left pleural effusion. 4. Cardiomegaly. 5. Minimal coronary artery atherosclerotic calcifications. 6. Prominent mediastinal lymph nodes measuring up to 16 mm, nonspecific. IMPRESSION: 1. Negative for acute inflammatory process in the abdomen or pelvis. 2. Cholecystectomy. 3. Diverticulosis without diverticulitis. 4. Small hiatal hernia. 5. Small supraumbilical ventral abdominal hernia containing omentum without bowel. 6. Moderate left inguinal hernia containing omentum without bowel.
[2022-02-10 22:07] VITALS: BP 149/97; PULSE 95; RESP 17; O2SAT 98
[2022-02-10] MEDS: iodixanol 320 mg/mL 100mL Btl IV (22:24)
[2022-02-10 23:25] LABS: Troponin 5 6HR 47.77 ng/L (0-10)
[2022-02-10 23:33] LABS: Troponin 5 6HR Delta -4.23 ng/L (0-12)
[2022-02-10] MEDS: cefTRIAXone 1,000 MG in sodium chloride 0.9% (plus) 50 ML 100 MG IV (23:35)
[2022-02-10 23:36] VITALS: BP 176/117; PULSE 89; RESP 17; O2SAT 99
--- NOTE | 2022-02-10 23:43 | P.HP_ITS ---
Providers/Chief Complaint Primary Care Provider: Gregory Wood DO Chief Complaint: HYPERTENSION History of Present Illness The patient is a 71-year-old female who was transferred to the emergency department due to dyspnea as well as encephalopathy. Unfortunately at the time of my encounter with the patient, she is encephalopathic and unable to provide history of present illness or past medical history. In the emergency department she is found to have possible pneumonia and/CHF exacerbation. She presents for further evaluation Review of Systems General: Reports: 10 or more systems reviewed and unremarkable except in HPI and below Medications/Allergies Home Medications Medication Instructions Recorded Confirmed Last Taken Type fluoxetine 20 mg tablet 20 mg PO DAILY 03/24/20 12/24/21 1 Day Ago History ~05/01/20 nitroglycerin 0.4 mg sublingual 0.4 mg SUBLINGUAL Q5M PRN 03/24/20 12/24/21 Unknown History tablet oxybutynin chloride 10 mg 10 mg PO DAILY 03/24/20 12/24/21 1 Day Ago History tablet,extended release 24 hr ~05/01/20 potassium chloride 20 mEq 20 meq PO DAILY 03/24/20 12/24/21 1 Day Ago History tablet,extended release ~05/01/20 simvastatin 20 mg tablet 20 mg PO BEDTIME 03/24/20 12/24/21 1 Day Ago History ~05/01/20 magnesium oxide 500 mg tablet 500 mg PO BID 05/02/20 12/24/21 1 Day Ago History ~05/01/20 acetaminophen 325 mg capsule 325 mg PO .see notes PRN cap 10/05/21 12/24/21 Unknown History (Tylenol) bisacodyl 10 mg rectal suppository 10 mg SD DAILY PRN 10/05/21 12/24/21 Unknown History enema .ROUTE .prn 10/05/21 12/24/21 Unknown History furosemide 20 mg tablet 60 mg PO DAILY tab 10/05/21 12/24/21 Unknown History lanolin-mineral oil lotion 1 applic TOPICAL DAILY PRN 10/05/21 12/24/21 Unknown History (Eucerin Original) lansoprazole 30 mg capsule,delayed 30 mg PO DAILY 10/05/21 12/24/21 Unknown History release magnesium hydroxide 400 mg/5 mL 30 ml PO DAILY PRN ml 10/05/21 12/24/21 Unknown History oral suspension (Milk of Magnesia) nystatin 100,000 unit/gram topical 1 applic TOPICAL BID PRN 10/05/21 12/24/21 Unknown History powder ([facility]) ondansetron 4 mg disintegrating 4 mg PO Q8H PRN 10/05/21 12/24/21 Unknown History tablet polyethylene glycol 3350 17 17 g PO DAILY PRN 10/05/21 12/24/21 Unknown History gram/dose oral powder (Miralax) sennosides 8.6 mg tablet (Senna 8.6 mg PO BID 10/05/21 12/24/21 Unknown History Laxative) allopurinol 100 mg tablet 100 mg PO DAILY 12/24/21 12/24/21 Unknown History cetirizine 5 mg tablet 5 mg PO DAILY 12/24/21 12/24/21 Unknown History Allergies Allergy/AdvReac Type Severity Reaction Status Date / Time phenazopyridine Allergy Unknown Verified 02/10/22 15:36 [From Pyridium] Sulfa (Sulfonamide Allergy Unknown Verified 02/10/22 15:36 Antibiotics) sulfamethoxazole Allergy Unknown Verified 02/10/22 15:36 [From Septra] trimethoprim [From Septra] Allergy Unknown Verified 02/10/22 15:36 PFSH Acute PFSH: Medical History Abnormal colonoscopy Polyp removal Anemia Bladder wall thickening Bundle branch block Chronic kidney disease, stage 3 (moderate) Congestive heart failure Failure reduced EF 10 to 15% Dementia Diabetes mellitus Gout Hypertension Iron deficiency anemia Memory Loss Moderate pulmonary arterial systolic hypertension Nonischemic cardiomyopathy Obstructive sleep apnea Osteoarthritis Type 2 diabetes mellitus Surgical History H/O bladder repair surgery History of cardiac cath History of hysterectomy History of knee replacement S/P cholecystectomy Family History Sister Hypertension Hyperlipidemia Social History Smoking and tobacco status: never smoked Vitals/I&O/Wt Last Vital Signs Temp 97.6 F 02/10/22 18:40 Pulse 89 02/10/22 23:36 Resp 17 02/10/22 23:36 BP 176/117 02/10/22 23:36 Pulse Ox 99 02/10/22 23:36 Weight last 48 hrs Weight 72.575 kg Physical Exam Narrative: General: -Alert -No acute distress -No dyspnea -No tachypnea Head: -Atraumatic -Normocephalic Eyes: -Pupils equally round and reactive to light and accommodation -Extraocular muscles intact Neurological: -Cranial nerves II-XII intact Neck: -No jugular venous distention -No thyromegaly -No cervical lymphadenopathy Heart: -Regular rate -Regular rhythm -No murmurs -No gallops -No rubs Lungs: -No wheeze -No rhonchi -No rales ? Abdomen: -Normal bowel sounds in all four quadrants -No rebound -No guarding -No tenderness Extremities: -2/4 pulse in all four extremities -No clubbing -No cyanosis -No edema -No calf tenderness present bilaterally -Negative Melissa?s sign bilaterally Musculoskeletal: -5/5 bilateral upper extremity strength -5/5 bilateral lower extremity strength -Sensorium of bilateral upper extremities are equal and intact -Sensorium of bilateral lower extremities are equal and intact ? Additional Details / Additional Findings / Exceptions / Miscellaneous: Data : 02/10/22 16:00 02/10/22 16:30 A&P Assessment and plan (1) Acute on chronic congestive heart failure: Status: Acute Plan Encephalopathy. This may be secondary to urinary tract infection and possible hyperammonemia given her transaminitis however ammonia levels currently pending. Neuro checks every 4 hours plus telemetry monitoring plus will check serial cardiac enzymes Elevated troponin, query and STEMI. This likely sequelae of acute on chronic end-stage heart failure. Will monitor patient on telemetry and checks her cardiac enzymes. Check TSH, free T4, magnesium level. The morning we will recheck EKG and check fasting lipid panel. Aspirin 81 Mill grams by mouth daily plus metoprolol 25 Mill grams by mouth twice a day. No statin due to transaminitis. No nitroglycerin due to likely valvular disease. Echocardiogram pending Diverticulosis Chronic kidney disease, baseline creatinine of approximate 1.4. Will monitor creatinine intermittently. Strict I/O. Daily weight. Depression Seasonal allergies Gout Urinary tract infection. Rocephin 1 g IV daily Pneumonia. A cephamycin 500 Mill grams IV daily plus Rocephin 1 g IV daily Dementia Constipation Overactive bladder CHF, ejection fraction 10-15%. Will monitor patient on telemetry and checks her cardiac enzymes. Strict I/O. Daily weight. Echo cardiac pending. Lasix 20 Mill grams IV 3 times a day plus metoprolol 25 Mill grams by mouth twice a day Moderate pulmonary hypertension Coronary artery disease. Aspirin 81 Mill grams by mouth daily plus metoprolol 25 Mill grams by mouth twice a day Diabetes. Will check fasting glucose every before meals and at bedtime and provide insulin sliding scale GERD Hyperlipidemia. Fasting lipid panel pending Hypertension. Metoprolol 25 Mill grams by mouth twice a day plus Lasix 20 Mill grams IV 3 times a day Obesity. The patient becomes regarding lifestyle modification She of borderline iron deficiency Transaminitis, query congestive hepatopathy. Will monitor LFTs periodically with CMP along with PT/INR. Acetaminophen level within normal limits. Ethanol level pending. Creatine kinase level pending. Ammonia level pending. Hepatitis panel pending. Imaging today has been overall unremarkable Obstructive sleep apnea. CPAP/BiPAP: Okay to use home device and/or pressure when sleeping if the patient uses CPAP/BiPAP at home [place] arthritis DVT Proflex is. 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
[2022-02-10 23:47] LABS: Hepatitis B Core IgM Non-Reactive (Nonreactive); Hepatitis B Surface Antigen Non-Reactive (Nonreactive); Hepatitis C Virus Antibody Non-Reactive (Nonreactive)
[2022-02-11] VITALS (10 sets, daily range): BP systolic 107–160; BP diastolic 72–110; PULSE 66–94; RESP 15–20; TEMP 36.2–36.8; O2SAT 93–99; BMI 27.4
[2022-02-11] MEDS: doxycycline 100 MG in sodium chloride 0.9% (plus) 100 ML IV (00:11)
[2022-02-11 00:19] LABS: Free T4 Free Thyroxine 1.69 ng/dL (0.82-1.77); Thyroid Stimulating Hormone 2.58 uIU/mL (0.27-4.20)
[2022-02-11 00:22] LABS: Alcohol Level < 10 mg/dL (0-10)
--- NOTE | 2022-02-11 01:30 | USCV_ITS ---
Valerie Mueller Age: 71 Gender: F : 1950 Exam Date: 02/11/2022 05:38 Ordering Phys: Aixa Hernandez DO Technologist: PIPPA Exam Location: [facility] [place] Indication: CHF BP: 107 / 76 HR: 88 Rhythm: Atrial fibrillation Technical Quality: Adequate MEASUREMENTS (Male / Female) Normal Values 2D ECHO LV Diastolic Diameter PLAX 5.5 cm 4.2 - 5.9 / 3.9 - 5.3 cm LV Systolic Diameter PLAX 5.0 cm IVS Diastolic Thickness 1.9 cm 0.6 - 1.0 / 0.6 - 0.9 cm IVS Systolic Thickness 1.9 cm LVPW Diastolic Thickness 1.3 cm 0.6 - 1.0 / 0.6 - 0.9 cm LVPW Systolic Thickness 1.5 cm LVOT Diameter 2.0 cm LV Ejection Fraction 2D Teich 19.9 % LV Ejection Fraction MOD 2C 24.4 % LV Ejection Fraction 2C AL 26.1 % LA Diameter 4.4 cm LA Width 4.0 cm LA Height 5.5 cm RA Width 4.5 cm RA Height 4.7 cm Aorta at Sinotubular Diameter 2.1 cm M-MODE Aortic Annulus Diameter 2.7 cm LA Ao Ratio MM 1.4 MV E Point Septal Separation 1.2 cm DOPPLER AV Peak Velocity 94.0 cm/s LVOT Peak Velocity 91.0 cm/s AV Area Cont Eq vti 3.7 cm squared AV Area Cont Eq pk 3.0 cm squared MV Peak Velocity 104.0 cm/s MV Area PHT 5.0 cm squared MV E' Velocity 49.0 cm/s Mitral E to MV E' Ratio 20.2 Mitral E to LV E' Lateral Ratio 13.2 Mitral E to LV E' Septal Ratio 43.3 TR Peak Velocity 299.5 cm/s TR Peak Gradient 35.9 mmHg TR Mean Velocity 243.5 cm/s TR Mean Gradient 25.5 mmHg TR Velocity Time Integral 96.4 cm TV Peak E Velocity 67.0 cm/s PV Peak Velocity 85.0 cm/s RV Acceleration Time 0.0 s RV Ejection Time 0.3 s RV AcT/ET 0.1 FINDINGS Left Ventricle Left ventricle is dilated. LV systolic function is severely reduced with EF of 20-25%. Severe global hypokinesis. Diastolic function is indeterminate because of atrial fibrillation Right Ventricle The right ventricle is hypokinetic Right Atrium The right atrium is dilated Left Atrium The left atrium is dilated Mitral Valve Structurally normal mitral valve without significant stenosis or prolapse. There is mild mitral regurgitation. Aortic Valve Aortic valve is thickened without significant stenosis. There is no aortic regurgitation. Tricuspid Valve Structurally normal tricuspid valve without significant stenosis. Mild tricuspid regurgitation. RVSP is 35-40mmHg. This is consistent with mild pulmonary hypertension Pulmonic Valve Structurally normal pulmonic valve without significant stenosis. There is mild pulmonic regurgitation. Pericardium Normal pericardium without effusion. Aorta Normal ascending aorta dimension. CONCLUSIONS Left ventrile is dilated. LV systolic function is severely reduced with EF of 20-25%. Severe global hypokinesis Mild mitral regurgitation Biatrial enlargement Mild tricuspid regurgitation. Mild pulmonary hypertension Mild pulmonic regurgitation No comparsion studies are available Faheem Frazier MD (Electronically Signed) Final Date: 11 February 2022 17:19 S
[2022-02-11] MEDS: azithromycin 500 MG in sodium chloride 0.9% 250 ML 250 MG IV (01:56)
[2022-02-11 01:58] LABS: Ammonia 27 umol/L (11-51)
[2022-02-11] MEDS: FUROsemide 10 mg/mL SDV 2mL 20 MG IVP ×2 (01:58→08:42)
[2022-02-11] MEDS: heparin 5,000 unit/mL INJ 1 mL 5000 UNIT SUBCUT ×2 (02:01→14:30)
[2022-02-11 02:16] LABS: Creatine Phosphokinase 75 U/L (26-192)
[2022-02-11 02:26] LABS: INR 1.69 (0.8-1.2)
[2022-02-11 06:04] LABS: INR 1.87 (0.8-1.2)
[2022-02-11 06:18] LABS: Ammonia 37 umol/L (11-51)
[2022-02-11 06:19] LABS: Albumin Level 3.7 g/dL (3.5-5.2); Alkaline Phosphatase 214 IU/L (35-105); Anion Gap 21.3 (5-19); Blood Urea Nitrogen 52 mg/dL (8-23); Calcium 9.7 mg/dL (8.5-10.5); Carbon Dioxide 17 mmol/L (22-29); Chloride 103 mmol/L (98-107); Chol HDL Ratio 3.36 mg/dL (0.0-4.40); Cholesterol 121 mg/dL (0-200); Creatine Phosphokinase 65 U/L (26-192); Globulin 3.1 g/dL (1.3-4.6); Glucose 129 mg/dL (65-115); HDL Cholesterol 36 mg/dL (60-100); LDL Cholesterol Calculated 75 mg/dL (50-129); LDL HDL Ratio 2.08 RATIO (0.00-3.22); Osmolality Calculated 300 mOsm/kg (285-295); Potassium 4.3 mmol/L (3.5-5.1); Sodium 137 mmol/L (136-145); Total Protein 6.8 g/dL (6.6-8.7); Triglycerides 48 mg/dL (0-150)
[2022-02-11 06:31] LABS: Alanine Aminotransferase 1090 U/L (0-33)
[2022-02-11 06:35] LABS: Glucose Point of Care 127 mg/dL (70-110)
[2022-02-11 06:35] LABS: Aspartate Amino Transferase 1005 U/L (0-32)
[2022-02-11] MEDS: metoprolol tartrate 25 mg Tablet PO (08:42)
[2022-02-11] MEDS: aspirin 81 mg EC Tablet PO (08:43)
--- NOTE | 2022-02-11 11:01 | PC.CHAP ---
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 [] Patient/Family/Request visit [] Outpatient visit [] Follow-up visit [] Physician referral [] Code/Alert [] Routine visit [] Staff referral [] Actively dying [] Patient sleeping [] Family support [] [] Out of room [] Palliative care [] [] Receiving care in room [] Pre-surgical visit [] Trauma [] Long length of stay [] ICU visit [x] Other: under staff care Relational/Emotional Strength [] Patient feels connected with others/family/visitors/staff [] Distress [] Loneliness/isolation [] Abandonment Spirituality of Patient [] Person of Ashlyn [] Attends Mandaeism of their Ashlyn [] Believes in Prayer [] Reads Bible or Evangelical materials [] There are Spiritual issues to be addressed Painter Airbrush Interventions [] Prayer [] Active listening [] Non-anxious presence [] Spiritual/emotional support [] Crisis/trauma care [] Spiritual counseling [] Bereavement support [] Provided bereavement packet [] Provided Bible/devotional materials [] Provided toy/stuffed animal, coloring book to patient or family member [] Provided Communion [] Anointing/[place] [] Salvation [] Completed spiritual assessment [] Other: Impact on Illness or Injury [] Angry [] Fearful [] Anxious [] Often cries [] Exhaustion [] Unable to work [] Unable to attend jain [] Unable to walk/stand [] Unable to read [] Unable to drive [] Unable to eat/drink [] Unable to sleep [] Unable to be with family [] Patient intubated [] Other: Summary under staff care Time spent with patient 5 mins
--- NOTE | 2022-02-11 17:15 | P.PN_ITS ---
Subjective Subjective: Patient was seen and examined this morning , says that she was not feeling well that is why she came to the hospital. Her other vitals and labs have been reviewed Medications: Medication Review Details: Generic Name Dose Route Start Last Admin Trade Name Gulshan PRN Reason Stop Dose Admin Aspirin 81 mg 02/11/22 09:00 02/11/22 08:43 Aspirin 81 Mg Ec Tablet PO 81 mg DAILY NKECHI Administration Heparin Sodium (Po rcine) 5,000 unit 02/11/22 02:00 02/11/22 14:30 Heparin 5,000 Un it/Ml Inj 1 Ml SUBCUT 5,000 unit Q12H NKECHI Administration Azithromycin 500 m g/ Sodium 250 mls @ 250 mls /hr 02/11/22 02:00 02/11/22 03:08 Chloride IV Infused Q24H NKECHI Infusion Protocol Sodium Chloride 1,000 mls @ 75 ml s/hr 02/11/22 15:15 02/11/22 18:05 Sodium Chloride 0.9% IV 75 mls/hr .[id number] NKECHI Administration Insulin Human Lisp ro 0 unit 02/11/22 08:00 02/11/22 17:58 Insulin Lispro 1 00 Unit/1 Ml SUBCUT Not Given WM&BEDTIME NKECHI Protocol Metoprolol Tartrat e 25 mg 02/11/22 09:00 02/11/22 08:42 Metoprolol Tartr ate 25 Mg Tablet PO 25 mg BID@0900,2100 NKECHI Administration Vitals/I&O/Wt Last Vital Signs Temp 97.5 F L 02/11/22 16:00 Pulse 66 02/11/22 16:00 Resp 18 02/11/22 16:00 BP 136/90 02/11/22 16:00 Pulse Ox 94 02/11/22 16:00 02/11/22 02/11/22 02/11/22 06:59 14:59 22:59 Intake Total 460 / 460 360 / 360 Output Total 500 / 500 Balance 460 / 460 -140 / -140 Weight last 48 hrs Weight 82.214 kg Weight 72.575 kg Weight 72.575 kg Physical Exam Narrative: Alert , awake, and oriented to Self HENMT: COMMON NORMALS: normocephalic and atraumatic HEAD & SCALP: normo cephalic and atraumatic Eye: GENERAL EYE: appearance normal, both eyes and all related structures Chest: COMMONS NORMALS: normal inspection of the chest and normal palpation of entire chest wall CHEST: Yes Symmetrical chest wall rise Resp: COMMON NORMALS: normal respiratory effort, No retractions, No use of ac cessory muscles and clear to auscultation bilaterally EFFORT & INSPECTION: Yes symmetric chest movement AUSCULTATION: clear to auscultation bilaterally Cardio: COMMON NORMALS: regular rate, regular rhythm, S1 normal heart sound present, S2 normal heart sound present, No gallops present (Cardio), No murmurs present (Cardio), No rub (Cardio) and Peripheral pulses 2+ throughout RATE: regular rate RHYTHM: regular rhythm HEART SOUNDS: S1 normal heart sound present and S2 normal heart sound present PERIPHERAL PULSES: Peripheral pulses 2+ throughout GI: COMMON NORMALS: Normal to inspection, nondistended, normoactive bowel sounds present, Soft to palpation, non-tender, No hepatosplenomegaly present and no masses AUSCULTATION: Yes normoactive bowel sounds PALPATION: Yes Soft to palpation and Yes No hepatosplenomegaly present RECTAL EXAM: deferred Extremity: COMMON NORMALS: no clubbing, cyanosis or edema and no pedal edema Data : 02/10/22 16:00 02/11/22 05:34 A&P Assessment and plan (1) Acute on chronic congestive heart failure: Status: Acute Plan Acute metabolic encephalopathy. Secondary to PNA, dehydration , transaminitis CT head without contrast: No acute intracranial pathology. Serum ammonia: 37 Gentle IV hydration with normal saline at 75 cc an hour Neuro check every 4 hours Fall precaution Pneumonia: CT chest: : Patchy bilateral airspace infiltrates.Small to moderate right pleural effusion and trace left pleural effusion. Sputum Gram stain and culture Continue ceftriaxone and azithromycin HFrEF Currently compensated Monitor intake output charting Daily weight Telemetry monitoring Hold Lasix. Elevated troponin type II MT : this likely sequelae of acute on chronic end- stage heart failure. Will monitor patient on telemetry and checks her cardiac enzymes. Check TSH, free T4, magnesium level. The morning we will recheck EKG and check fasting lipid panel. Aspirin 81 Mill grams by mouth daily plus metoprolol 25 Mill grams by mouth twice a day. No statin due to transaminitis. No nitroglycerin due to likely valvular disease. Echocardiogram pending Diverticulosis Chronic kidney disease, baseline creatinine of approximate 1.4. Will monitor creatinine intermittently. Strict I/O. Daily weight. Depression Seasonal allergies Gout Dementia Constipation Overactive bladder Moderate pulmonary hypertension Coronary artery disease. Aspirin 81 Mill grams by mouth daily plus metoprolol 25 Mill grams by mouth twice a day Diabetes. Will check fasting glucose every before meals and at bedtime and provide insulin sliding scale GERD Hyperlipidemia. Fasting lipid panel pending Hypertension. Metoprolol 25 Mill grams by mouth twice a day plus Lasix 20 Mill grams IV 3 times a day Obesity. The patient becomes regarding lifestyle modification She of borderline iron deficiency Transaminitis, query congestive hepatopathy. Will monitor LFTs periodically with CMP along with PT/INR. Acetaminophen level within normal limits. Ethanol level pending. Creatine kinase level pending. Ammonia level pending. Hepatiti s panel pending. Imaging today has been overall unremarkable Obstructive sleep apnea. CPAP/BiPAP: Okay to use home device and/or pressure when sleeping if the patient uses CPAP/BiPAP at home [place] arthritis DVT Proflex is. Bilateral SCD Attestations Medical Necessity Statement*: Patient is to be in hospital for management of pneumonia , encephalopathy. Time Spent in Patient Care: Greater than 35 minutes (>than 50% of time spent in counselling and/or direct pt care on unit) . 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
[2022-02-11] MEDS: sodium chloride 0.9% 1,000 ML 75 ML IV (18:05)
[2022-02-11 21:46] LABS: Glucose Point of Care 126 mg/dL (70-110)
[2022-02-11 21:46] LABS: Glucose Point of Care 135 mg/dL (70-110)
[2022-02-11 21:46] LABS: Glucose Point of Care 116 mg/dL (70-110)
[2022-02-11] MEDS: cefTRIAXone 1,000 MG in sodium chloride 0.9% (plus) 50 ML 100 MG IV (23:47)
[2022-02-12] VITALS (9 sets, daily range): BP systolic 124–150; BP diastolic 84–93; PULSE 60–72; RESP 12–20; TEMP 36.3–37; O2SAT 92–99
[2022-02-12] MEDS: azithromycin 500 MG in sodium chloride 0.9% 250 ML 250 MG IV (02:03)
[2022-02-12] MEDS: heparin 5,000 unit/mL INJ 1 mL 5000 UNIT SUBCUT ×2 (02:03→14:37)
[2022-02-12] MEDS: morphine 4 mg/mL SDV 1 mL 1 MG IVP (04:13)
[2022-02-12 05:18] LABS: Basophils % 0.3 %; Eosinophils % 0.3 %; Hemoglobin 12.8 g/dL (11.5-15.3); Lymphocytes # 3.4 10^3/uL (0.8-4.8); Lymphocytes % 27.3 %; Mean Corpuscular HGB Conc 29.8 g/dL (30.0-36.0); Mean Corpuscular Hemoglobin 27.4 pg (28.0-34.0); Mean Corpuscular Volume 92.1 fl (81-99); Monocytes # 1.1 10^3/uL (0.2-0.9); Neutrophils # 7.74 10^3/uL (1.8-7.7); Neutrophils % 62.6 %; Nucleated Red Blood Cells # 0.1 /100WBC; Nucleated Red Blood Cells % 0.6 %; Platelet Count 153 10^3/cmm (130-400); Red Blood Count 4.67 10^6/uL (4.1-5.3); Red Cell Distribution Width 16.7 % (12.1-15.1); White Blood Count 12.4 10^3/uL (4.0-10.0)
[2022-02-12 05:27] LABS: Mean Platelet Volume 13.2 fL (7.4-10.4)
[2022-02-12 05:41] LABS: Albumin Level 3.7 g/dL (3.5-5.2); Alkaline Phosphatase 232 IU/L (35-105); Anion Gap 21.8 (5-19); Blood Urea Nitrogen 70 mg/dL (8-23); Calcium 9.6 mg/dL (8.5-10.5); Carbon Dioxide 14 mmol/L (22-29); Chloride 101 mmol/L (98-107); Globulin 2.4 g/dL (1.3-4.6); Glucose 107 mg/dL (65-115); Osmolality Calculated 295 mOsm/kg (285-295); Potassium 4.8 mmol/L (3.5-5.1); Sodium 132 mmol/L (136-145); Total Bilirubin 1.4 mg/dL (0.15-1.2); Total Protein 6.1 g/dL (6.6-8.7)
[2022-02-12 06:17] LABS: Creatinine Clr Calc Pharmacy 23.2707
[2022-02-12 06:22] LABS: Alanine Aminotransferase 1140 U/L (0-33)
[2022-02-12 06:23] LABS: Aspartate Amino Transferase 760 U/L (0-32)
[2022-02-12 06:42] LABS: Glucose Point of Care 100 mg/dL (70-110)
[2022-02-12] MEDS: aspirin 81 mg EC Tablet PO (08:48)
[2022-02-12] MEDS: metoprolol tartrate 25 mg Tablet PO ×2 (08:48→20:04)
[2022-02-12] MEDS: sodium chloride 0.9% 1,000 ML 75 ML IV (12:33)
[2022-02-12 12:41] LABS: Glucose Point of Care 118 mg/dL (70-110)
[2022-02-12] MEDS: nystatin powder 15 gm Btl 1 APPLIC TOPICAL ×2 (14:37→17:42)
[2022-02-12 17:30] LABS: Glucose Point of Care 116 mg/dL (70-110)
--- NOTE | 2022-02-12 19:55 | PM.PN ---
Subjective Subjective: Patient was seen and examined this morning , says that she was not feeling well that is why she came to the hospital. Her other vitals and labs have been reviewed Medications: Medication Review Details: Generic Name Dose Route Start Last Admin Trade Name Gulshan PRN Reason Stop Dose Admin Aspirin 81 mg 02/11/22 09:00 02/11/22 08:43 Aspirin 81 Mg Ec Tablet PO 81 mg DAILY NKECHI Administration Heparin Sodium (Po rcine) 5,000 unit 02/11/22 02:00 02/11/22 14:30 Heparin 5,000 Un it/Ml Inj 1 Ml SUBCUT 5,000 unit Q12H NKECHI Administration Azithromycin 500 m g/ Sodium 250 mls @ 250 mls /hr 02/11/22 02:00 02/11/22 03:08 Chloride IV Infused Q24H NKECHI Infusion Protocol Sodium Chloride 1,000 mls @ 75 ml s/hr 02/11/22 15:15 02/11/22 18:05 Sodium Chloride 0.9% IV 75 mls/hr .[id number] NKECHI Administration Insulin Human Lisp ro 0 unit 02/11/22 08:00 02/11/22 17:58 Insulin Lispro 1 00 Unit/1 Ml SUBCUT Not Given WM&BEDTIME NKECHI Protocol Metoprolol Tartrat e 25 mg 02/11/22 09:00 02/11/22 08:42 Metoprolol Tartr ate 25 Mg Tablet PO 25 mg BID@0900,2100 NKECHI Administration Vitals/I&O/Wt Last Vital Signs Temp 97.8 F 02/12/22 19:26 Pulse 61 02/12/22 19:26 Resp 17 02/12/22 19:26 BP 132/89 02/12/22 19:26 Pulse Ox 99 02/12/22 19:26 02/12/22 02/12/22 02/12/22 06:59 14:59 22:59 Intake Total 500 / 1010 1440 / 1440 Balance 500 / 510 1440 / 1440 Weight last 48 hrs Weight 82.214 kg Weight 72.575 kg Physical Exam Narrative: Alert , awake, and oriented HENMT: COMMON NORMALS: normocephalic and atraumatic HEAD & SCALP: normocephalic and atraumatic Eye: GENERAL EYE: appearance normal, both eyes and all related structures Chest: COMMONS NORMALS: normal inspection of the chest and normal palpation of entire chest wall CHEST: Yes Symmetrical chest wall rise Resp: COMMON NORMALS: normal respiratory effort, No retractions, No use of accessory muscles and clear to auscultation bilaterally EFFORT & INSPECTION: Yes symmetric chest movement AUSCULTATION: clear to auscultation bilaterally Cardio: COMMON NORMALS: regular rate, regular rhythm, S1 normal heart sound present, S2 normal heart sound present, No gallops present (Cardio), No murmurs present (Cardio), No rub (Cardio) and Peripheral pulses 2+ throughout RATE: regular rate RHYTHM: regular rhythm HEART SOUNDS: S1 normal heart sound present and S2 normal heart sound present PERIPHERAL PULSES: Peripheral pulses 2+ throughout GI: COMMON NORMALS: Normal to inspection, nondistended, normoactive bowel sounds present, Soft to palpation, non-tender, No hepatosplenomegaly present and no masses AUSCULTATION: Yes normoactive bowel sounds PALPATION: Yes Soft to palpation and Yes No hepatosplenomegaly present RECTAL EXAM: deferred Extremity: COMMON NORMALS: no clubbing, cyanosis or edema and no pedal edema Urinary Catheter Management: Elias: Cath Placed During This Visit: yes Reason for Continuing Indwelling Catheter: Other Urinary Catheter Date of Insertion: 02/12/22 Urinary Catheter Time of Insertion: 04:50 Data : 02/12/22 04:55 02/12/22 04:55 A&P Assessment and plan (1) Acute on chronic congestive heart failure: Status: Acute Plan Acute metabolic encephalopathy. Secondary to PNA, dehydration , transaminitis CT head without contrast: No acute intracranial pathology. Serum ammonia: 37 Gentle IV hydration with normal saline at 75 cc an hour Neuro check every 4 hours Fall precaution Pneumonia: CT chest: : Patchy bilateral airspace infiltrates.Small to moderate right pleural effusion and trace left pleural effusion. Sputum Gram stain and culture Continue ceftriaxone and azithromycin HFrEF : 2D echo:Left ventrile is dilated. LV systolic function is severely reduced with EF of 20-25%. Severe global hypokinesis , Mild mitral regurgitation,?Biatrial enlargement,?Mild tricuspid regurgitation. Mild pulmonary hypertension,?Mild pulmonic regurgitation. Currently compensated: Denies any shortness of breath , saturating well on room air, no JVD, no PND no orthopnea. Monitor intake output charting Daily weight Telemetry monitoring Hold Lasix. RACHAEL on CKD stage III : Likely secondary to contrast-induced nephropathy. Baseline serum creatinine is unknown Admission serum creatinine: 1.4 Continue to monitor BMP Monitor intake output charting Avoid nephrotoxic's Possible renal consult Transaminitis: CT abdomen and pelvis with contrast:Negative for acute inflammatory process in the abdomen or pelvis. Cholecystectomy. US abdomen: Gallbladder is not well visualized, however, no definite gallbladder stones are seen. A positive Vital's sign is present. Hepatitis panel is negative Patient currently denies nausea vomiting abdominal pain, has been afebrile, tolerating diet. Continue to monitor CMP for now Possibly may need HIDA scan or MRCP. Elevated troponin type II [place] : this likely sequelae of acute on chronic end-stage heart failure. Will monitor patient on telemetry and checks her cardiac enzymes. Check TSH, free T4, magnesium level. The morning we will recheck EKG and check fasting lipid panel. Aspirin 81 Mill grams by mouth daily plus metoprolol 25 Mill grams by mouth twice a day. No statin due to transaminitis. No nitroglycerin due to likely valvular disease. Echocardiogram pending Diverticulosis Depression Seasonal allergies Gout Dementia Constipation Overactive bladder Moderate pulmonary hypertension Coronary artery disease. Aspirin 81 Mill grams by mouth daily plus metoprolol 25 Mill grams by mouth twice a day Diabetes. Will check fasting glucose every before meals and at bedtime and provide insulin sliding scale GERD Hyperlipidemia. Fasting lipid panel pending Hypertension. Metoprolol 25 Mill grams by mouth twice a day plus Lasix 20 Mill grams IV 3 times a day Obesity. The patient becomes regarding lifestyle modification She of borderline iron deficiency Obstructive sleep apnea. CPAP/BiPAP: Okay to use home device and/or pressure when sleeping if the patient uses CPAP/BiPAP at home [place] arthritis DVT PPX: Bilateral SCD Attestations Medical Necessity Statement*: She needs to be in hospital for management of above defined problems. Time Spent in Patient Care: Greater than 35 minutes (>than 50% of time spent in counselling and/or direct pt care on unit). Coding Level of Care Code Acute Life Insurance Specialist for Lisbeth Osorio Diagnoses Acute on chronic congestive heart failure I50.9
[2022-02-12 21:15] LABS: Glucose Point of Care 101 mg/dL (70-110)
[2022-02-12] MEDS: cefTRIAXone 1,000 MG in sodium chloride 0.9% (plus) 50 ML 100 MG IV (23:32)
[2022-02-13] VITALS (9 sets, daily range): BP systolic 132–142; BP diastolic 83–95; PULSE 53–60; RESP 16–18; TEMP 36.3–36.6; O2SAT 95–99
[2022-02-13] MEDS: sodium chloride 0.9% 1,000 ML 75 ML IV (00:42)
[2022-02-13] MEDS: heparin 5,000 unit/mL INJ 1 mL 5000 UNIT SUBCUT ×2 (01:10→14:02)
[2022-02-13] MEDS: azithromycin 500 MG in sodium chloride 0.9% 250 ML 250 MG IV (01:10)
[2022-02-13 04:32] LABS: Basophils # 0.1 10^3/uL (0.0-0.1); Basophils % 0.6 %; Eosinophils # 0.1 10^3/uL (0.0-0.8); Eosinophils % 0.7 %; Hematocrit 40.9 % (37.0-47.0); Hemoglobin 12.3 g/dL (11.5-15.3); Lymphocytes # 2.3 10^3/uL (0.8-4.8); Lymphocytes % 26.2 %; Mean Corpuscular HGB Conc 30.1 g/dL (30.0-36.0); Mean Corpuscular Hemoglobin 27.6 pg (28.0-34.0); Mean Corpuscular Volume 91.7 fl (81-99); Mean Platelet Volume 11.9 fL (7.4-10.4); Monocytes # 0.7 10^3/uL (0.2-0.9); Monocytes % 7.9 %; Neutrophils # 5.55 10^3/uL (1.8-7.7); Neutrophils % 63.9 %; Nucleated Red Blood Cells # 0.1 /100WBC; Nucleated Red Blood Cells % 0.6 %; Platelet Count 120 10^3/cmm (130-400); Red Blood Count 4.46 10^6/uL (4.1-5.3); Red Cell Distribution Width 16.7 % (12.1-15.1); White Blood Count 8.7 10^3/uL (4.0-10.0)
[2022-02-13 04:54] LABS: Albumin Level 3.4 g/dL (3.5-5.2); Alkaline Phosphatase 219 IU/L (35-105); Anion Gap 18.7 (5-19); Aspartate Amino Transferase 483 U/L (0-32); Blood Urea Nitrogen 80 mg/dL (8-23); Calcium 9.4 mg/dL (8.5-10.5); Carbon Dioxide 16 mmol/L (22-29); Chloride 106 mmol/L (98-107); Globulin 2.5 g/dL (1.3-4.6); Glucose 99 mg/dL (65-115); Osmolality Calculated 306 mOsm/kg (285-295); Potassium 4.7 mmol/L (3.5-5.1); Sodium 136 mmol/L (136-145); Total Bilirubin 0.8 mg/dL (0.15-1.2); Total Protein 5.9 g/dL (6.6-8.7)
[2022-02-13 05:06] LABS: Alanine Aminotransferase 1024 U/L (0-33)
--- NOTE | 2022-02-13 05:29 | PC.NURSE ---
Patient resting in bed and has slept all night with some groaning. Patient stated, just ignore my moans i'm fine. when this nurse asked if there is something that she needed or could help with. Patient refused turns most of shift. Elias in place and patent with minimal UOP-see chart. No new events or concerns. Patient refusing to sit up in chair at this time stating, 'It is just to early for that. Room is clean and clutter free, call light in reach and more than hourly rounding on patient.
[2022-02-13 06:42] LABS: Glucose Point of Care 97 mg/dL (70-110)
[2022-02-13] MEDS: aspirin 81 mg EC Tablet PO (08:36)
[2022-02-13] MEDS: metoprolol tartrate 25 mg Tablet PO ×2 (08:37→20:43)
[2022-02-13] MEDS: nystatin powder 15 gm Btl 1 APPLIC TOPICAL ×2 (08:37→17:04)
[2022-02-13] MEDS: sodium bicarbonate 650 mg Tablet 1300 MG PO ×3 (08:39→20:43)
--- NOTE | 2022-02-13 10:58 | PC.SOCIAL ---
IMM Update pg 2 of IMM updated and reviewed w/ patient. Copy provided and Copy placed in chart.
[2022-02-13 11:52] LABS: Glucose Point of Care 92 mg/dL (70-110)
--- NOTE | 2022-02-13 14:24 | PM.PN ---
Subjective Subjective: Patient was seen and examined this morning, sitting comfortably in chair, saturating well on room air Serum creatinine is slightly improved today to 2.1 . Though BUN continue to be high at 80, Total bilirubin is normal AST ALT alk phos is going down. Platelet count has down trended to 1 20,000, no active signs of bleeding, Intake output likely is not currently charted as patient was incontinent before, documented urine output so far is 900 ml. Medications: Medication Review Details: Generic Name Dose Route Start Last Admin Trade Name Gulshan PRN Reason Stop Dose Admin Aspirin 81 mg 02/11/22 09:00 02/11/22 08:43 Aspirin 81 Mg Ec Tablet PO 81 mg DAILY NKECHI Administration Heparin Sodium (Po rcine) 5,000 unit 02/11/22 02:00 02/11/22 14:30 Heparin 5,000 Un it/Ml Inj 1 Ml SUBCUT 5,000 unit Q12H NKECHI Administration Azithromycin 500 m g/ Sodium 250 mls @ 250 mls /hr 02/11/22 02:00 02/11/22 03:08 Chloride IV Infused Q24H NKECHI Infusion Protocol Sodium Chloride 1,000 mls @ 75 ml s/hr 02/11/22 15:15 02/11/22 18:05 Sodium Chloride 0.9% IV 75 mls/hr .[id number] NKECHI Administration Insulin Human Lisp ro 0 unit 02/11/22 08:00 02/11/22 17:58 Insulin Lispro 1 00 Unit/1 Ml SUBCUT Not Given WM&BEDTIME NKECHI Protocol Metoprolol Tartrat e 25 mg 02/11/22 09:00 02/11/22 08:42 Metoprolol Tartr ate 25 Mg Tablet PO 25 mg BID@0900,2100 NKECHI Administration Vitals/I&O/Wt Last Vital Signs Temp 97.6 F 02/13/22 11:50 Pulse 55 L 02/13/22 11:50 Resp 16 02/13/22 11:50 BP 142/92 02/13/22 11:50 Pulse Ox 98 02/13/22 11:50 02/12/22 02/13/22 02/13/22 22:59 06:59 14:59 Intake Total 100 / 1540 1331.25 / 2871.25 360 / 360 Output Total 400 / 400 Balance 100 / 1540 931.25 / 2471.25 360 / 360 Physical Exam Narrative: Alert , awake, and oriented HENMT: COMMON NORMALS: normocephalic and atraumatic HEAD & SCALP: normocephalic and atraumatic Eye: GENERAL EYE: appearance normal, both eyes and all related structures Chest: COMMONS NORMALS: normal inspection of the chest and normal palpation of entire chest wall CHEST: Yes Symmetrical chest wall rise Resp: COMMON NORMALS: normal respiratory effort, No retractions and No use of accessory muscles EFFORT & INSPECTION: Yes symmetric chest movement OTHER: Minimal bilateral basal crackles present in both the lungs with. Cardio: COMMON NORMALS: regular rate, regular rhythm, S1 normal heart sound present, S2 normal heart sound present, No gallops present (Cardio), No murmurs present (Cardio), No rub (Cardio) and Peripheral pulses 2+ throughout RATE: regular rate RHYTHM: regular rhythm HEART SOUNDS: S1 normal heart sound present and S2 normal heart sound present PERIPHERAL PULSES: Peripheral pulses 2+ throughout GI: COMMON NORMALS: Normal to inspection, nondistended, normoactive bowel sounds present, Soft to palpation, non-tender, No hepatosplenomegaly present and no masses AUSCULTATION: Yes normoactive bowel sounds PALPATION: Yes Soft to palpation and Yes No hepatosplenomegaly present RECTAL EXAM: deferred Extremity: COMMON NORMALS: no clubbing, cyanosis or edema and no pedal edema Urinary Catheter Management: Elias: Cath Placed During This Visit: yes Reason for Continuing Indwelling Catheter: Acute Urinary Retention or Obstruction Urinary Catheter Date of Insertion: 02/12/22 Urinary Catheter Time of Insertion: 04:50 Data : 02/13/22 04:10 02/13/22 04:10 A&P Assessment and plan (1) Acute on chronic congestive heart failure: Status: Acute Plan Acute metabolic encephalopathy. Secondary to PNA, dehydration , transaminitis CT head without contrast: No acute intracranial pathology. Serum ammonia: 37 Gentle IV hydration with normal saline at 75 cc an hour Neuro check every 4 hours Fall precaution Pneumonia: CT chest: : Patchy bilateral airspace infiltrates.Small to moderate right pleural effusion and trace left pleural effusion. Sputum Gram stain and culture Continue ceftriaxone and azithromycin HFrEF : 2D echo:Left ventrile is dilated. LV systolic function is severely reduced with EF of 20-25%. Severe global hypokinesis , Mild mitral regurgitation,?Biatrial enlargement,?Mild tricuspid regurgitation. Mild pulmonary hypertension,?Mild pulmonic regurgitation. Currently compensated: Denies any shortness of breath , saturating well on room air, no JVD, no PND no orthopnea. Monitor intake output charting Daily weight Telemetry monitoring Hold Lasix. RACHAEL on CKD stage III : Likely secondary to contrast-induced nephropathy. Baseline serum creatinine is unknown Admission serum creatinine: 1.4 Continue to monitor BMP Monitor intake output charting Avoid nephrotoxic's Possible renal consult Transaminitis: CT abdomen and pelvis with contrast:Negative for acute inflammatory process in the abdomen or pelvis. Cholecystectomy. US abdomen: Gallbladder is not well visualized, however, no definite gallbladder stones are seen. A positive Vital's sign is present. Hepatitis panel is negative Patient currently denies nausea vomiting abdominal pain, has been afebrile, tolerating diet. Continue to monitor CMP for now Possibly may need HIDA scan or MRCP. Elevated troponin type II [place] : this likely sequelae of acute on chronic end-stage heart failure. Will monitor patient on telemetry and checks her cardiac enzymes. Check TSH, free T4, magnesium level. The morning we will recheck EKG and check fasting lipid panel. Aspirin 81 Mill grams by mouth daily plus metoprolol 25 Mill grams by mouth twice a day. No statin due to transaminitis. No nitroglycerin due to likely valvular disease. Echocardiogram pending Diverticulosis Depression Seasonal allergies Gout Dementia Constipation Overactive bladder Moderate pulmonary hypertension Coronary artery disease. Aspirin 81 Mill grams by mouth daily plus metoprolol 25 Mill grams by mouth twice a day Diabetes. Will check fasting glucose every before meals and at bedtime and provide insulin sliding scale GERD Hyperlipidemia. Fasting lipid panel pending Hypertension. Metoprolol 25 Mill grams by mouth twice a day plus Lasix 20 Mill grams IV 3 times a day Obesity. The patient becomes regarding lifestyle modification She of borderline iron deficiency Obstructive sleep apnea. CPAP/BiPAP: Okay to use home device and/or pressure when sleeping if the patient uses CPAP/BiPAP at home [place] arthritis DVT PPX: Bilateral SCD Attestations Medical Necessity Statement*: Patient is still in hospital for management of pneumonia RACHAEL transaminitis, need for monitoring of kidney function. Time Spent in Patient Care: Greater than 35 minutes (>than 50% of time spent in counselling and/or direct pt care on unit). Coding Level of Care Code Acute Correction Officer Supervisor for Christig Devon Diagnoses Acute on chronic congestive heart failure I50.9
[2022-02-13] MEDS: sodium chloride 0.9% 1,000 ML 50 ML IV (15:41)
[2022-02-13 17:03] LABS: Glucose Point of Care 91 mg/dL (70-110)
[2022-02-13] MEDS: cefTRIAXone 1,000 MG in sodium chloride 0.9% (plus) 50 ML 100 MG IV (23:48)
[2022-02-14] VITALS (8 sets, daily range): BP systolic 131–154; BP diastolic 68–88; PULSE 46–84; RESP 16–17; TEMP 36.2–36.7; O2SAT 92–100
[2022-02-14] MEDS: azithromycin 500 MG in sodium chloride 0.9% 250 ML 250 MG IV (01:57)
[2022-02-14] MEDS: heparin 5,000 unit/mL INJ 1 mL 5000 UNIT SUBCUT ×2 (01:57→14:37)
[2022-02-14 03:51] LABS: Basophils % 0.5 %; Eosinophils # 0.1 10^3/uL (0.0-0.8); Eosinophils % 0.8 %; Hematocrit 45.6 % (37.0-47.0); Hemoglobin 12.9 g/dL (11.5-15.3); Lymphocytes # 2.3 10^3/uL (0.8-4.8); Lymphocytes % 25.8 %; Mean Corpuscular HGB Conc 28.3 g/dL (30.0-36.0); Mean Corpuscular Hemoglobin 27.4 pg (28.0-34.0); Mean Corpuscular Volume 96.8 fl (81-99); Mean Platelet Volume 12.4 fL (7.4-10.4); Monocytes # 0.7 10^3/uL (0.2-0.9); Monocytes % 8.2 %; Neutrophils # 5.64 10^3/uL (1.8-7.7); Neutrophils % 64.2 %; Nucleated Red Blood Cells # 0.1 /100WBC; Nucleated Red Blood Cells % 0.7 %; Platelet Count 111 10^3/cmm (130-400); Red Blood Count 4.71 10^6/uL (4.1-5.3); Red Cell Distribution Width 17.2 % (12.1-15.1); White Blood Count 8.8 10^3/uL (4.0-10.0)
[2022-02-14 04:14] LABS: Albumin Level 2.8 g/dL (3.5-5.2); Alkaline Phosphatase 199 IU/L (35-105); Blood Urea Nitrogen 69 mg/dL (8-23); Calcium 9.5 mg/dL (8.5-10.5); Carbon Dioxide 15 mmol/L (22-29); Chloride 110 mmol/L (98-107); Globulin 2.8 g/dL (1.3-4.6); Glucose 98 mg/dL (65-115); Osmolality Calculated 308 mOsm/kg (285-295); Sodium 139 mmol/L (136-145); Total Bilirubin 0.8 mg/dL (0.15-1.2); Total Protein 5.6 g/dL (6.6-8.7)
[2022-02-14 04:15] LABS: Anion Gap 18.6 (5-19); Potassium 4.6 mmol/L (3.5-5.1)
[2022-02-14 04:16] LABS: Aspartate Amino Transferase 327 U/L (0-32)
[2022-02-14 04:53] LABS: Alanine Aminotransferase 818 U/L (0-33)
[2022-02-14 06:45] LABS: Glucose Point of Care 94 mg/dL (70-110)
[2022-02-14 08:44] LABS: Glucose Point of Care 105 mg/dL (70-110)
[2022-02-14] MEDS: sodium bicarbonate 650 mg Tablet 1300 MG PO ×3 (08:46→21:43)
[2022-02-14] MEDS: aspirin 81 mg EC Tablet PO (08:46)
[2022-02-14] MEDS: metoprolol tartrate 25 mg Tablet PO ×2 (10:23→21:43)
[2022-02-14] MEDS: nystatin powder 15 gm Btl 1 APPLIC TOPICAL ×2 (10:23→21:43)
[2022-02-14] MEDS: sodium chloride 0.9% 1,000 ML 50 ML IV (11:49)
[2022-02-14 12:05] LABS: Glucose Point of Care 90 mg/dL (70-110)
[2022-02-14 17:19] LABS: Glucose Point of Care 93 mg/dL (70-110)
--- NOTE | 2022-02-14 17:21 | P.PN_ITS ---
Subjective Subjective: Patient was seen and examined this morning, resting comfortably,RACHAEL is improving,transaminitis is improving, continue to have good urine output,saturating well on room air. Her other vitals and labs have been reviewed. Medications: Medication Review Details: Generic Name Dose Route Start Last Admin Trade Name Gulshan PRN Reason Stop Dose Admin Aspirin 81 mg 02/11/22 09:00 02/11/22 08:43 Aspirin 81 Mg Ec Tablet PO 81 mg DAILY NKECHI Administration Heparin Sodium (Po rcine) 5,000 unit 02/11/22 02:00 02/11/22 14:30 Heparin 5,000 Un it/Ml Inj 1 Ml SUBCUT 5,000 unit Q12H NKECHI Administration Azithromycin 500 m g/ Sodium 250 mls @ 250 mls /hr 02/11/22 02:00 02/11/22 03:08 Chloride IV Infused Q24H NKECHI Infusion Protocol Sodium Chloride 1,000 mls @ 75 ml s/hr 02/11/22 15:15 02/11/22 18:05 Sodium Chloride 0.9% IV 75 mls/hr .[id number] NKECHI Administration Insulin Human Lisp ro 0 unit 02/11/22 08:00 02/11/22 17:58 Insulin Lispro 1 00 Unit/1 Ml SUBCUT Not Given WM&BEDTIME NKECHI Protocol Metoprolol Tartrat e 25 mg 02/11/22 09:00 02/11/22 08:42 Metoprolol Tartr ate 25 Mg Tablet PO 25 mg BID@0900,2100 NKECHI Administration Vitals/I&O/Wt Last Vital Signs Temp 98.0 F 02/14/22 16:00 Pulse 60 02/14/22 16:00 Resp 16 02/14/22 16:00 BP 131/80 02/14/22 16:00 Pulse Ox 92 02/14/22 16:00 02/14/22 02/14/22 02/14/22 06:59 14:59 22:59 Intake Total 300 / 1760 1000 / 1000 Output Total 750 / 1100 Balance -450 / 660 1000 / 1000 Weight last 48 hrs Weight 85.729 kg Physical Exam Narrative: Alert , awake, and oriented HENMT: COMMON NORMALS: normocephalic and atraumatic HEAD & SCALP: normocep halic and atraumatic Eye: GENERAL EYE: appearance normal, both eyes and all related structures Chest: COMMONS NORMALS: normal inspection of the chest and normal palpation of entire chest wall CHEST: Yes Symmetrical chest wall rise Resp: COMMON NORMALS: normal respiratory effort, No retractions and No use of accessory muscles EFFORT & INSPECTION: Yes symmetric chest movement OTHER: Minimal bilateral basal crackles present in both the lungs with. Cardio: COMMON NORMALS: regular rate, regular rhythm, S1 normal heart sound present, S2 normal heart sound present, No gallops present (Cardio), No murmurs present (Cardio), No rub (Cardio) and Peripheral pulses 2+ throughout RATE: regular rate RHYTHM: regular rhythm HEART SOUNDS: S1 normal heart sound present and S2 normal heart sound present PERIPHERAL PULSES: Peripheral pulses 2+ throughout GI: COMMON NORMALS: Normal to inspection, nondistended, normoactive bowel sounds present, Soft to palpation, non-tender, No hepatosplenomegaly present and no masses AUSCULTATION: Yes normoactive bowel sounds PALPATION: Yes Soft to palpation and Yes No hepatosplenomegaly present RECTAL EXAM: deferred Extremity: COMMON NORMALS: no clubbing, cyanosis or edema and no pedal edema Urinary Catheter Management: Elias: Cath Placed During This Visit: yes Reason for Continuing Indwelling Catheter: Other Urinary Catheter Date of Insertion: 02/12/22 Urinary Catheter Time of Insertion: 04:50 Data : 02/14/22 03:20 02/14/22 03:20 A&P Assessment and plan (1) Acute on chronic congestive heart failure: Status: Acute Plan Acute metabolic encephalopathy. Secondary to PNA, dehydration , transaminitis CT head without contrast: No acute intracranial pathology. Serum ammonia: 37 Gentle IV hydration with normal saline at 75 cc an hour Neuro check every 4 hours Fall precaution Pneumonia: CT chest: : Patchy bilateral airspace infiltrates.Small to moderate right pleural effusion and trace left pleural effusion. Sputum Gram stain and culture Continue ceftriaxone and azithromycin HFrEF : 2D echo:Left ventrile is dilated. LV systolic function is severely reduced with EF of 20-25%. Severe global hypokinesis , Mild mitral regurgitation,?Biatrial enlargement,?Mild tricuspid regurgitation. Mild pulmonary hypertension,?Mild pulmonic regurgitation. Currently compensated: Denies any shortness of breath , saturating well on room air, no JVD, no PND no orthopnea. Monitor intake output charting Daily weight Telemetry monitoring Hold Lasix. RACHAEL on CKD stage III : Likely secondary to contrast-induced nephropathy. Baseline serum creatinine is unknown Admission serum creatinine: 1.4 Continue to monitor BMP Monitor intake output charting Avoid nephrotoxic's Possible renal consult Transaminitis: CT abdomen and pelvis with contrast:Negative for acute inflammatory process in the abdomen or pelvis. Cholecystectomy. US abdomen: Gallbladder is not well visualized, however, no definite gallbladder stones are seen. A positive Vital's sign is present. Hepatitis panel is negative Patient currently denies nausea vomiting abdominal pain, has been afebrile, tolerating diet. Continue to monitor CMP for now Possibly may need HIDA scan or MRCP. #Thrombocytopenia : No active signs of bleeding. Continue to monitor CBC #Elevated troponin: Likely type II [place] : this likely sequelae of acute on chronic end-stage heart failure. Will monitor patient on telemetry and checks her cardiac enzymes. Check TSH, free T4, magnesium level. The morning we will recheck EKG and check fasting lipid panel. Aspirin 81 Mill grams by mouth daily plus metoprolol 25 Mill grams by mouth twice a day. No statin due to transaminitis. No nitroglycerin due to likely valvular disease. Echocardiogram pending Diverticulosis Depression Seasonal allergies Gout Dementia Constipation Overactive bladder Moderate pulmonary hypertension Coronary artery disease. Aspirin 81 Mill grams by mouth daily plus metoprolol 25 Mill grams by mouth twice a day Diabetes. Will check fasting glucose every before meals and at bedtime and provide insulin sliding scale GERD Hyperlipidemia. Fasting lipid panel pending Hypertension. Metoprolol 25 Mill grams by mouth twice a day plus Obesity. The patient becomes regarding lifestyle modification She of borderline iron deficiency Obstructive sleep apnea. CPAP/BiPAP: Okay to use home device and/or pressure when sleeping if the patient uses CPAP/BiPAP at home [place] arthritis DVT PPX: Bilateral SCD Attestations Medical Necessity Statement*: Patient needs to be in hospital for the management of RACHAEL,Transaminitis,PNA. NEED FOR I.V Fluids as well as abxs. Time Spent in Patient Care: Greater than 35 minutes (>than 50% of time spent in counselling and/or direct pt care on unit) . Coding Level of Care Code Acute Booster Operator for Lisbeth Osorio Diagnoses Acute on chronic congestive heart failure I50.9
[2022-02-14 20:25] LABS: Glucose Point of Care 129 mg/dL (70-110)
[2022-02-14] MEDS: cefTRIAXone 1,000 MG in sodium chloride 0.9% (plus) 50 ML 100 MG IV (23:08)
[2022-02-15] VITALS: BP 111/68; PULSE 62; RESP 16; TEMP 36.5; O2SAT 96
[2022-02-15 04:00] VITALS: BP 158/88; PULSE 58; RESP 17; TEMP 36.3; O2SAT 99
[2022-02-15 04:52] VITALS: PULSE 59
[2022-02-15 06:52] LABS: Alanine Aminotransferase 614 U/L (0-33); Albumin Level 3.4 g/dL (3.5-5.2); Alkaline Phosphatase 192 IU/L (35-105); Blood Urea Nitrogen 55 mg/dL (8-23); Calcium 9.8 mg/dL (8.5-10.5); Carbon Dioxide 17 mmol/L (22-29); Chloride 112 mmol/L (98-107); Globulin 2.3 g/dL (1.3-4.6); Glucose 111 mg/dL (65-115); Osmolality Calculated 316 mOsm/kg (285-295); Sodium 145 mmol/L (136-145); Total Bilirubin 0.7 mg/dL (0.15-1.2); Total Protein 5.7 g/dL (6.6-8.7)
[2022-02-15 06:54] LABS: Anion Gap 20.7 (5-19); Aspartate Amino Transferase 225 U/L (0-32); Potassium 4.7 mmol/L (3.5-5.1)
[2022-02-15 07:00] LABS: Basophils % 0.1 %; Eosinophils % 0.1 %; Hematocrit 41.8 % (37.0-47.0); Hemoglobin 12.9 g/dL (11.5-15.3); Lymphocytes # 1.6 10^3/uL (0.8-4.8); Lymphocytes % 21.2 %; Mean Corpuscular HGB Conc 30.9 g/dL (30.0-36.0); Mean Corpuscular Hemoglobin 27.8 pg (28.0-34.0); Mean Corpuscular Volume 90.1 fl (81-99); Monocytes # 0.6 10^3/uL (0.2-0.9); Monocytes % 7.7 %; Neutrophils # 5.42 10^3/uL (1.8-7.7); Neutrophils % 70.5 %; Nucleated Red Blood Cells % 0.5 %; Platelet Count 77 10^3/cmm (130-400); Red Blood Count 4.64 10^6/uL (4.1-5.3); Red Cell Distribution Width 17.2 % (12.1-15.1); White Blood Count 7.7 10^3/uL (4.0-10.0)
[2022-02-15 07:12] LABS: Glucose Point of Care 101 mg/dL (70-110)
[2022-02-15 07:41] LABS: Slide Review Slide Review Perform
[2022-02-15] MEDS: sodium chloride 0.9% 1,000 ML 50 ML IV (07:55)
[2022-02-15 08:00] VITALS: BP 162/89; PULSE 60; RESP 16; TEMP 37; O2SAT 98
[2022-02-15] MEDS: aspirin 81 mg EC Tablet PO (08:18)
[2022-02-15] MEDS: sodium bicarbonate 650 mg Tablet 1300 MG PO (08:18)
[2022-02-15] MEDS: metoprolol tartrate 25 mg Tablet PO (08:20)
[2022-02-15] MEDS: nystatin powder 15 gm Btl 1 APPLIC TOPICAL (08:21)
--- NOTE | 2022-02-15 08:29 | PC.SOCIAL ---
IMM Update pg 2 of IMM updated w/ patients son Bladimir via telephone. Copy left @ BS and copy in chart updated.
--- NOTE | 2022-02-15 10:28 | PM.DCS ---
Discharge Providers Date of Admission: 02/10/22 23:10 Date of Discharge: February 15, 2022 Attending Provider at Admission: Aixa Hernandez DO Attending Provider at Discharge: Dougie Capm MD Primary Care Provider: Gregory Wood DO Diagnoses at Discharge Discharge Diagnosis (1) Acute on chronic congestive heart failure: Status: Acute Reason for Visit Reason for Visit: HYPERTENSION Hospital Course Hospital Course 70 year old female with pmh of Alzheimer's dementia, pulmonary hypertension, HFrEF ( EF 10 to 15%) [facility] She was admitted with chief complaint of altered mental status and shortness of breath. During this hospital stay she was managed for acute metabolic encephalopathy secondary to pneumonia, Dehydration, CT head without contrast was negative for any intracranial pathology. She was kept on neurochecks every 4 hours, fall precaution, at the time of discharge she was at her baseline mentation. For pneumonia: CT chest abdomen and pelvis with contrast: Patchy bilateral airspace infiltrates.Small to moderate right pleural effusion and trace left pleural effusion.SHe was kept on antibiotics, and other conservative respiratory support measures, she was saturating well on room air, was afebrile. She also developed RACHAEL on CKD stage III secondary to contrast-induced nephropathy during the hospital stay, responded well to gentle IV hydration, BUN and serum creatinine was trending down, serum creatinine was likely at its baseline Discharge serum creatinine was 1.2, for her transaminitis: CT abdomen and pelvis with contrast:Negative for acute inflammatory process in the abdomen or pelvis.Cholecystectomy. US abdomen: Gallbladder is not well visualized, however, no definite gallbladder stones are seen. A positive Vital's sign is present.Hepatitis panel is negative, had no nausea vomiting abdominal pain, she was tolerating diet well, CMP was monitored, at the time of discharge CMP was trending down in the right direction. She was also managed for HFrEF : She was compensated during the hospital stay, 2D echo:Left ventrile is dilated. LV systolic function is severely reduced with EF of 20-25%. Severe global hypokinesis , Mild mitral regurgitation,?Biatrial enlargement,?Mild tricuspid regurgitation. Mild pulmonary hypertension,?Mild pulmonic regurgitation. Lasix has been kept on hold on discharge, she will have to follow-up with her primary care physician Within 1 to 2 weeks to restart the Lasix depending on the volume status at that time. She was also managed for elevated troponin likely type II CO, no acute ST-T wave changes, She has a prior cath done in 2019 which has shown nonischemic cardiomyopathy. She was also monitored for thrombocytopenia, has chronic thrombocytopenia, she was continued to be monitored, had no evident bleeding sign.Her blood pressure was above the goal during the hospital stay for which she has been started on amlodipine 5 mg p.o. daily as well as metoprolol tartrate 12.5 mg p.o. BID. Patient is to follow with her primary care physician with repeat CBC and CMP in a week. For monitoring of LFT as well as platelet count, as well as to reassess her volume status and regarding resumption of Lasix. Patient responded well to above medical management and is being discharged in stable condition to senior living. Physical Exam Narrative: Alert , awake, and oriented HENMT: COMMON NORMALS: normocephalic and atraumatic HEAD & SCALP: normocephalic and atraumatic Eye: GENERAL EYE: appearance normal, both eyes and all related structures Chest: COMMONS NORMALS: normal inspection of the chest and normal palpation of entire chest wall CHEST: Yes Symmetrical chest wall rise Resp: COMMON NORMALS: normal respiratory effort, No retractions and No use of accessory muscles EFFORT & INSPECTION: Yes symmetric chest movement OTHER: Minimal bilateral basal crackles present in both the lungs with. Cardio: COMMON NORMALS: regular rate, regular rhythm, S1 normal heart sound present, S2 normal heart sound present, No gallops present (Cardio), No murmurs present (Cardio), No rub (Cardio) and Peripheral pulses 2+ throughout RATE: regular rate RHYTHM: regular rhythm HEART SOUNDS: S1 normal heart sound present and S2 normal heart sound present PERIPHERAL PULSES: Peripheral pulses 2+ throughout GI: COMMON NORMALS: Normal to inspection, nondistended, normoactive bowel sounds present, Soft to palpation, non-tender, No hepatosplenomegaly present and no masses AUSCULTATION: Yes normoactive bowel sounds PALPATION: Yes Soft to palpation and Yes No hepatosplenomegaly present RECTAL EXAM: deferred Extremity: COMMON NORMALS: no clubbing, cyanosis or edema and no pedal edema Urinary Catheter Management: Elias: Cath Placed During This Visit: yes Reason for Continuing Indwelling Catheter: Other Urinary Catheter Date of Insertion: 02/12/22 Urinary Catheter Time of Insertion: 04:50 Discharge Data Studies Completed and Pending Completed Studies During Hospitalization Category Date Time Status CT chest abd pel w con* Urgent Cat Scan 02/10/22 22:[address] head wo con* [id number] Urgent Cat Scan 02/10/22 15:47 Completed XR chest 1V portable [id number] Urgent Exams 02/10/22 15:47 Completed US abdomen limited [id number] Stat Ultrasound 02/10/22 19:47 Completed US echo complete [CV. echo complete* [id number]] Routine Ultrasound 02/11/22 01:30 Completed Pending at discharge Category Date Time Status CBC Auto Diff [Complete Blood Count w/Auto] AM LABS Lab 02/16/22 04:00 Ordered CBC Auto Diff [Complete Blood Count w/Auto] AM LABS Lab 02/17/22 04:00 Ordered CMP [Comprehensive Metabolic Panel] AM LABS Lab 02/16/22 04:00 Ordered CMP [Comprehensive Metabolic Panel] AM LABS Lab 02/17/22 04:00 Ordered COVID [SARS Covid-2 Antigen] Routine Lab 02/15/22 10:18 Uncollected Radiology Impressions Chest X-Ray 02/10/22 15:47 IMPRESSION: Cardiomegaly, lungs are clear Head CT 02/10/22 15:47 IMPRESSION: Negative for intracranial hemorrhage or mass effect Abdomen Ultrasound 02/10/22 19:47 IMPRESSION: Gallbladder is not well visualized, however, no definite gallbladder stones are seen. A positive Vital's sign is present. Consider further evaluation with nuclear medicine HIDA scan if concern for cholecystitis remains. Chest/Abdomen/Pelvis CT 02/10/22 22:02 IMPRESSION: 1. Negative for pulmonary embolus. 2. Patchy bilateral airspace infiltrates. 3. Small to moderate right pleural effusion and trace left pleural effusion. 4. Cardiomegaly. 5. Minimal coronary artery atherosclerotic calcifications. 6. Prominent mediastinal lymph nodes measuring up to 16 mm, nonspecific. IMPRESSION: 1. Negative for acute inflammatory process in the abdomen or pelvis. 2. Cholecystectomy. 3. Diverticulosis without diverticulitis. 4. Small hiatal hernia. 5. Small supraumbilical ventral abdominal hernia containing omentum without bowel. 6. Moderate left inguinal hernia containing omentum without bowel. Laboratory Results WBC 7.7 10^3/uL (4.0-10.0) 02/15/22 05:12 RBC 4.64 10^6/uL (4.1-5.3) 02/15/22 05:12 Hgb 12.9 g/dL (11.5-15.3) 02/15/22 05:12 Hct 41.8 % (37.0-47.0) 02/15/22 05:12 MCV 90.1 fl (81-99) D 02/15/22 05:12 MCH 27.8 pg (28.0-34.0) L 02/15/22 05:12 MCHC 30.9 g/dL (30.0-36.0) D 02/15/22 05:12 RDW 17.2 % (12.1-15.1) H 02/15/22 05:12 Plt Count 77 10^3/cmm (130-400) L D 02/15/22 05:12 MPV TNP 02/15/22 05:12 Neut % (Auto) 70.5 % 02/15/22 05:12 Lymph % (Auto) 21.2 % 02/15/22 05:12 [place] % (Auto) 7.7 % 02/15/22 05:12 Eos % (Auto) 0.1 % 02/15/22 05:12 Baso % (Auto) 0.1 % 02/15/22 05:12 Neut # (Auto) 5.42 10^3/uL (1.8-7.7) 02/15/22 05:12 Lymph # (Auto) 1.6 10^3/uL (0.8-4.8) 02/15/22 05:12 [place] # (Auto) 0.6 10^3/uL (0.2-0.9) 02/15/22 05:12 Eos # (Auto) 0.0 10^3/uL (0.0-0.8) 02/15/22 05:12 Baso # (Auto) 0.0 10^3/uL (0.0-0.1) 02/15/22 05:12 Nucleated RBC % (auto) 0.5 % 02/15/22 05:12 Nucleated RBCs # 0.0 /100WBC 02/15/22 05:12 PT 22.00 SECONDS (12.1-14.9) H 02/11/22 05:34 INR 1.87 (0.8-1.2) H 02/11/22 05:34 Sodium 145 mmol/L (136-145) 02/15/22 05:12 Potassium 4.7 mmol/L (3.5-5.1) 02/15/22 05:12 Chloride 112 mmol/L (98-107) H 02/15/22 05:12 Carbon Dioxide 17 mmol/L (22-29) L 02/15/22 05:12 Anion Gap 20.7 (5-19) H 02/15/22 05:12 BUN 55 mg/dL (8-23) H 02/15/22 05:12 Creatinine 1.2 mg/dL (0.5-0.9) H 02/15/22 05:12 GFR Calculation Not Reportable 02/15/22 05:12 Glucose 111 mg/dL (65-115) 02/15/22 05:12 POC Glucose 101 mg/dL (70-110) 02/15/22 06:31 Calculated Osmolality 316 mOsm/kg (285-295) H 02/15/22 05:12 Calcium 9.8 mg/dL (8.5-10.5) 02/15/22 05:12 Magnesium 2.0 mg/dL (1.7-2.3) 02/10/22 16:30 Total Bilirubin 0.7 mg/dL (0.15-1.2) 02/15/22 05:12 AST 225 U/L (0-32) H 02/15/22 05:12 ALT 614 U/L (0-33) H 02/15/22 05:12 Alkaline Phosphatase 192 IU/L (35-105) H 02/15/22 05:12 Ammonia 37 umol/L (11-51) 02/11/22 05:34 Creatine Kinase 65 U/L (26-192) 02/11/22 05:34 Troponin T Baseline 52 ng/L (0-10) H 02/10/22 16:30 Troponin T 120 Minute 52.03 ng/L (0-10) H 02/10/22 18:39 Delta Troponin T 0.03 ABS# (0-10) 02/10/22 18:39 Troponin T Hi Sens 6Hr 47.77 ng/L (0-10) H 02/10/22 22:53 Troponin T Hi Sens 6Hr Delta -4.23 ng/L (0-12) L 02/10/22 22:53 NT-Pro-B Natriuret Pep 23238 pg/mL (0-125) H 02/10/22 16:30 Total Protein 5.7 g/dL (6.6-8.7) L 02/15/22 05:12 Albumin 3.4 g/dL (3.5-5.2) L 02/15/22 05:12 Globulin 2.3 g/dL (1.3-4.6) 02/15/22 05:12 Triglycerides 48 mg/dL (0-150) 02/11/22 05:34 Cholesterol 121 mg/dL (0-200) 02/11/22 05:34 LDL Cholesterol, Calc 75 mg/dL (50-129) 02/11/22 05:34 HDL Cholesterol 36 mg/dL (60-100) L 02/11/22 05:34 LDL/HDL Ratio 2.08 RATIO (0.00-3.22) 02/11/22 05:34 Cholesterol/HDL Ratio 3.36 mg/dL (0.0-4.40) 02/11/22 05:34 Lipase 45 U/L (13-60) 02/10/22 16:30 TSH 2.58 uIU/mL (0.27-4.20) 02/10/22 16:30 TSH 2.69 uIU/mL (0.27-4.20) 02/10/22 16:30 Free T4 1.69 ng/dL (0.82-1.77) 02/10/22 16:30 Urine Color Dark yellow (Yellow) 02/10/22 19:50 Urine Appearance Clear (CLEAR) 02/10/22 19:50 Urine pH 5 (5-7) 02/10/22 19:50 Ur Specific [place] 1.025 (1.005-1.030) 02/10/22 19:50 Urine Protein 3+ (Negative) H 02/10/22 19:50 Urine Glucose (UA) Norm (Normal) 02/10/22 19:50 Urine Ketones Negative (Negative) 02/10/22 19:50 Urine Blood 2+ (Negative) H 02/10/22 19:50 Urine Nitrate Negative (Negative) 02/10/22 19:50 Urine Bilirubin 1+ (Negative) H 02/10/22 19:50 Urine Urobilinogen 4 mg/dL (Negative) H 02/10/22 19:50 Ur Leukocyte Esterase Trace (Negative) H 02/10/22 19:50 Urine RBC 0-4 /hpf (0-2) H 02/10/22 19:50 Urine WBC 0-4 /hpf (0-5) H 02/10/22 19:50 Ur Squamous Epith Cells 0-4 /hpf (0-5) H 02/10/22 19:50 Amorphous Sediment Not Reportable 02/10/22 19:50 Urine Bacteria Trace /hpf (NONE) 02/10/22 19:50 Urine Mucus Trace /hpf 02/10/22 19:50 Acetaminophen 5.2 ug/mL (10-30) L 02/10/22 16:30 Ethyl Alcohol < 10 mg/dL (0-10) 02/10/22 16:30 Hepatitis A IgM Ab TNP 02/10/22 22:53 Hep Bs Antigen Non-reactive (Nonreactive) 02/10/22 22:53 Hep B Core IgM Ab Non-reactive (Nonreactive) 02/10/22 22:53 Hepatitis C Antibody Non-reactive (Nonreactive) 02/10/22 22:53 Misc Test Reference See comment 02/10/22 22:53 Vitals Last Vital Signs Temp 98.6 F 02/15/22 08:00 Pulse 60 02/15/22 08:00 Resp 16 02/15/22 08:00 BP 162/89 02/15/22 08:00 Pulse Ox 98 02/15/22 08:00 Discharge Plan Discharge Patient Disposition: Xfer [facility] Condition: Stable Prescriptions: New amlodipine 5 mg tablet 5 mg PO DAILY Qty: 30 3RF metoprolol tartrate 25 mg tablet 12.5 mg PO BID Qty: 60 3RF levofloxacin 500 mg tablet 500 mg PO Q48H 7 Days Qty: 4 0RF Continued bisacodyl 10 mg suppository 10 mg MO DAILY PRN (Reason: Constipation) 0RF acetaminophen [Tylenol] 325 mg capsule 325 mg PO .see notes PRN (Reason: Pain) 0RF Label Comments: Q 8 hours prn and BID sennosides [Senna Laxative] 8.6 mg tablet 8.6 mg PO BID 0RF lansoprazole 30 mg capsule,delayed release(DR/EC) 30 mg PO DAILY 0RF cetirizine 5 mg tablet 5 mg PO DAILY 0RF allopurinol 100 mg tablet 100 mg PO DAILY 0RF nitroglycerin 0.4 mg tablet, sublingual 0.4 mg SUBLINGUAL Q5M PRN (Reason: Chest Pain) 0RF Rx Instructions: do not exceed 3 doses per episode simvastatin 20 mg tablet 20 mg PO BEDTIME 0RF fluoxetine 20 mg tablet 20 mg PO DAILY 0RF ondansetron 4 mg Tablet,Disintegrating 4 mg PO Q8H 0RF Discharge Orders: Discharge Order (Routine); Ordered 02/15/22 Ordered By: Dougie Camp Referrals: [facility] [Outside] Emanuel Laguna MD [Physician] - 04/07/22 10:30 am Gregory Wood DO [Primary Care Provider] - 2 weeks (Dr. Wood will round on patient in the senior living.) Discharge Diet: Cardiac Patient Instructions: Metoprolol (By mouth) (Lopressor, Toprol XL), Amlodipine (By mouth) (Hypertenipine-2.5, Norvasc), Levofloxacin (By mouth) (Levaquin, Levaquin Leva-jayna), CHF Stoplight, Opioid Safety, Pneumonia Stoplight Discharge Attestations Time Spent in Discharge Care*: greater than 30 min Specific Discharge Activities: educating patient, educating and/or supporting family/caregiver, discussing with pcp/other providers, discussing with counseling case manager/social workers/dc planners, documenting/other paperwork and evaluating patient/reviewing data Quality Metrics Clinical Quality Measures [ No reported AMI, CVA or VTE this stay] Coding Level of Care Code Acute Chg FW DC note Exam Detailed Diagnoses Acute on chronic congestive heart failure I50.9
[2022-02-15 11:32] VITALS: BP 150/94; PULSE 56; RESP 16; TEMP 36.8; O2SAT 98
[2022-02-15 11:47] LABS: Glucose Point of Care 129 mg/dL (70-110)
[2022-02-15 14:17] VITALS: BP 150/94; PULSE 56; RESP 16; TEMP 36.8; O2SAT 98
--- NOTE | 2022-02-15 14:18 | PC.NURSE ---
[place] [facility] [place] Andria, all questions answered. Patient left ready van.
[2022-02-15 15:05] LABS: Adenovirus Not Detected (NOT DETECT); Chlamydia Pneumoniae Not Detected (NOT DETECT); Coronavirus 229E,HKU1,NL63,OC4 Not Detected (NOT DETECT); Human Metapneumovirus Not Detected (NOT DETECT); Human Rhinovirus/Enterovirus Not Detected (NOT DETECT); Influenza A Not Detected (NOT DETECT); Influenza A H1 Not Detected (NOT DETECT); Influenza A H1-2009 Not Detected (NOT DETECT); Influenza A H3 Not Detected (NOT DETECT); Influenza B Not Detected (NOT DETECT); Mycoplasma Pneumoniae Not Detected (NOT DETECT); Parainfluenza Virus Type 1 Not Detected (NOT DETECT); Parainfluenza Virus Type 2 Not Detected (NOT DETECT); Parainfluenza Virus Type 3 Not Detected (NOT DETECT); Parainfluenza Virus Type 4 Not Detected (NOT DETECT); Respiratory Syncytial Virus A Not Detected (NOT DETECT); Respiratory Syncytial Virus B Not Detected (NOT DETECT); SARS-COV-2 Not Detected (NOT DETECT)
== END 2022-02-15 14:18 | disposition skilled nursing facility (03) | DRG 193 ==
LOC: ER 23:10 → MEDSURG 02-11 00:09
PROVIDERS: Admitting Provider Internal Medicine; Emergency Provider Emergency Medicine; PCP Internal Medicine; Visit Provider Internal Medicine
DX: J18.9 Pneumonia, unspecified organism (principal); I50.23 Acute on chronic systolic (congestive) heart failure; I21.A1 Myocardial infarction type 2; G93.41 Metabolic encephalopathy; I13.0 Hypertensive heart and chronic kidney disease with heart failure and stage 1 through stage 4 chronic kidney disease, or unspecified chronic kidney disease; I42.8 Other cardiomyopathies; N39.0 Urinary tract infection, site not specified; N17.9 Acute kidney failure, unspecified; N18.30 Chronic kidney disease, stage 3 unspecified; E11.22 Type 2 diabetes mellitus with diabetic chronic kidney disease; G30.9 Alzheimer's disease, unspecified; F02.80 Dementia in other diseases classified elsewhere, unspecified severity, without behavioral disturbance, psychotic disturbance, mood disturbance, and anxiety; G47.33 Obstructive sleep apnea (adult) (pediatric); D50.9 Iron deficiency anemia, unspecified; K57.90 Diverticulosis of intestine, part unspecified, without perforation or abscess without bleeding; F32.A Depression, unspecified; M10.9 Gout, unspecified; K59.00 Constipation, unspecified; N32.81 Overactive bladder; I27.20 Pulmonary hypertension, unspecified; I25.10 Atherosclerotic heart disease of native coronary artery without angina pectoris; E78.5 Hyperlipidemia, unspecified; D69.6 Thrombocytopenia, unspecified; N14.1 Nephropathy induced by other drugs, medicaments and biological substances; T50.8X5A Adverse effect of diagnostic agents, initial encounter; E86.0 Dehydration
CPT/HCPCS: 36415; 36416; 51702; 70450; 71045; 71260; 74177; 76705; 80053; 80061; 80074; 80307; 81001; 82140; 82550; 82962; 83690; 83735; 83880; 84439; 84443; 84484; 85025; 85610; 86709; 87635; 93005; 93306; 94664; 96365; 96367; 96372; 97161; 97530; 99285; J0456; J0696; J1644; J1940; J2270; J3490; J7030; J7050; Q9967

== ENCOUNTER → 2022-04-07 10:17 | Outpatient (BNVA) | payer OTHER, MEDICARE, SELFPAY | PROVIDERS: PCP Internal Medicine; Visit Provider Internal Medicine Cardiovascular Disease | DX: I13.0 Hypertensive heart and chronic kidney disease with heart failure and stage 1 through stage 4 chronic kidney disease, or unspecified chronic kidney disease (principal); E11.22 Type 2 diabetes mellitus with diabetic chronic kidney disease; N18.30 Chronic kidney disease, stage 3 unspecified; I50.33 Acute on chronic diastolic (congestive) heart failure; M10.9 Gout, unspecified; I42.8 Other cardiomyopathies; Z79.84 Long term (current) use of oral hypoglycemic drugs; E78.5 Hyperlipidemia, unspecified | CPT/HCPCS: 80048; 83880; 99204; 99205 ==

== ENCOUNTER → 2022-04-29 09:14 | Outpatient (BNVA) | payer MEDICARE, OTHER, SELFPAY | PROVIDERS: PCP Internal Medicine; Visit Provider Nurse Practitioner Family | DX: I42.8 Other cardiomyopathies (principal); I13.0 Hypertensive heart and chronic kidney disease with heart failure and stage 1 through stage 4 chronic kidney disease, or unspecified chronic kidney disease; E11.22 Type 2 diabetes mellitus with diabetic chronic kidney disease; N18.9 Chronic kidney disease, unspecified; I50.9 Heart failure, unspecified; Z79.84 Long term (current) use of oral hypoglycemic drugs | CPT/HCPCS: 36415; 80048; 83880; 99214 ==

== ENCOUNTER → 2022-06-01 08:59 | Outpatient (BNVA) | payer MEDICARE, OTHER, SELFPAY | PROVIDERS: PCP Internal Medicine; Visit Provider Nurse Practitioner Family | DX: I13.0 Hypertensive heart and chronic kidney disease with heart failure and stage 1 through stage 4 chronic kidney disease, or unspecified chronic kidney disease (principal); E11.22 Type 2 diabetes mellitus with diabetic chronic kidney disease; N18.30 Chronic kidney disease, stage 3 unspecified; I50.9 Heart failure, unspecified; Z79.84 Long term (current) use of oral hypoglycemic drugs | CPT/HCPCS: 36415; 80048; 83880; 99214 ==

== ENCOUNTER → 2022-07-28 11:16 | Outpatient (BNVA) | payer MEDICARE, OTHER, SELFPAY | PROVIDERS: PCP Internal Medicine; Visit Provider Internal Medicine Cardiovascular Disease | DX: R94.39 Abnormal result of other cardiovascular function study (principal); R06.02 Shortness of breath; I42.8 Other cardiomyopathies; I13.0 Hypertensive heart and chronic kidney disease with heart failure and stage 1 through stage 4 chronic kidney disease, or unspecified chronic kidney disease; I50.9 Heart failure, unspecified; M10.9 Gout, unspecified; E11.9 Type 2 diabetes mellitus without complications; N18.30 Chronic kidney disease, stage 3 unspecified | CPT/HCPCS: 80048; 83880; 99214 ==

== ENCOUNTER 2022-10-21 14:22 | Outpatient (CLI) | payer MEDICARE, OTHER, SELFPAY ==
--- NOTE | 2022-10-21 15:00 | USCV_ITS ---
Mueller Valerie Age: 72 Gender: F : 1950 Exam Date: 10/21/2022 14:48 Ordering Phys: Emanuel Laguna MD ([email or web address]) Technologist: Exam Location: [facility] [place] Indication: low ef BP: 134 / 72 HR: 62 Rhythm: Sinus Technical Quality: Adequate MEASUREMENTS (Male / Female) Normal Values 2D ECHO LV Diastolic Diameter PLAX 4.5 cm 4.2 - 5.9 / 3.9 - 5.3 cm LV Systolic Diameter PLAX 3.4 cm IVS Diastolic Thickness 1.3 cm 0.6 - 1.0 / 0.6 - 0.9 cm IVS Systolic Thickness 1.3 cm LVPW Diastolic Thickness 0.9 cm 0.6 - 1.0 / 0.6 - 0.9 cm LVPW Systolic Thickness 1.1 cm LVOT Diameter 2.0 cm LV Ejection Fraction 2D Teich 34.7 % LV Ejection Fraction MOD 2C 55.6 % LV Ejection Fraction 2C AL 55.5 % LA Diameter 3.9 cm Aorta at Sinotubular Diameter 2.3 cm M-MODE LV Diastolic Diameter MM 5.1 cm 4.2 - 5.9 / 3.9 - 5.3 cm LV Systolic Diameter MM 4.1 cm LV Ejection Fraction MM Teich 41.5 % IVS Diastolic Thickness MM 1.3 cm 0.6 - 1.0 / 0.6 - 0.9 cm IVS Systolic Thickness MM 1.5 cm LVPW Diastolic Thickness MM 1.3 cm 0.6 - 1.0 / 0.6 - 0.9 cm LVPW Systolic Thickness MM 1.8 cm RV Diastolic Diameter MM 1.6 cm Aortic Annulus Diameter 2.9 cm LA Ao Ratio MM 1.5 MV E Point Septal Separation 1.5 cm FINDINGS Left Ventricle Diffuse hypokinesia of the left ventricle with an ejection fraction of 30- 35%(visual) Right Ventricle Possibly of normal size and ejection Right Atrium Possibly of normal size Left Atrium Possibly of normal size Mitral Valve Thickened mitral valve. Aortic Valve Thickened aortic valve. Tricuspid Valve No gross abnormality noted Pulmonic Valve Pulmonic valve not well visualized. Pericardium No pericardial effusion. Aorta Normal aortic annulus size. IVC Inferior vena cava not visualized. CONCLUSIONS Normal LV size with diminished ejection fraction of 35% Diffuse hypokinesia of the left ventricle. Possibly normal cardiac chamber sizes. Minimally thickened aortic and mitral valves. No intracardiac masses. No pericardial effusion. Compared to the study from 02/11/2022, there is some improvement in the LV ejection fraction Dr Emanuel Laguna MD FAC (Electronically Signed) Final Date: 22 October 2022 20:53 S
== END 2022-10-21 14:23 | disposition home or self-care (01) ==
LOC: RAD 14:25
PROVIDERS: PCP Internal Medicine; Visit Provider Internal Medicine Cardiovascular Disease
DX: I42.8 Other cardiomyopathies (principal); I08.0 Rheumatic disorders of both mitral and aortic valves
CPT/HCPCS: 93308

== ENCOUNTER → 2023-01-26 09:50 | Outpatient (BNVA) | payer MEDICARE, OTHER, SELFPAY | PROVIDERS: PCP Internal Medicine; Visit Provider Internal Medicine Cardiovascular Disease | DX: I42.8 Other cardiomyopathies (principal); R06.02 Shortness of breath; I13.0 Hypertensive heart and chronic kidney disease with heart failure and stage 1 through stage 4 chronic kidney disease, or unspecified chronic kidney disease; E11.22 Type 2 diabetes mellitus with diabetic chronic kidney disease; I50.22 Chronic systolic (congestive) heart failure; N18.30 Chronic kidney disease, stage 3 unspecified | CPT/HCPCS: 80048; 83880; 99214 ==

== ENCOUNTER 2023-02-27 07:41 | Emergency (ER) | payer MEDICARE, OTHER, MEDICAID, SELFPAY ==
[2023-02-27 07:42] VITALS: BP 157/75; PULSE 63; RESP 16; TEMP 36.5; O2SAT 97; BMI 37.8
--- NOTE | 2023-02-27 08:03 | W.ED.GENADLT ---
HPI - General Adult General: Chief complaint: General Medical Stated complaint: PROLAPSED RECTUM Time Seen by Provider: 02/27/23 07:44 History of Present Illness: Patient presents to the ER today by EMS with complaints of rectal prolapse. Per the patient she has had this a long time with no change other than sometimes it hurts. This contradicts the nursing triage note that says she has not had this before and this just recently started. skilled nursing was called talk to Jie who talked to patient's family and said she does not think the patient has had this before. It was noticed when patient was having a bowel movement this morning and straining made it worse. MD complaint: Rectal prolapse Onset (ago): day(s) (Today) Relieving factors: none Exacerbating factors: other (Bearing down and straining) Associated symptoms: Reports no associated symptoms; Deny chest pain, dyspnea, nausea, palpitations or vomiting Treatments prior to arrival: none Review of Systems General: Reports: 10 or more systems reviewed and unremarkable except in HPI and below Const: Denies: fever(s) or chills Eyes: Denies: change in vision or photophobia Card: Denies: chest pain or palpitations Resp: Denies: dyspnea, productive cough or non-productive cough GI: Denies: abdominal pain, nausea or vomiting PFSH ED PFSH: Medical History Abnormal colonoscopy Polyp removal Acute on chronic congestive heart failure Anemia Bladder wall thickening Bundle branch block Chronic kidney disease, stage 3 (moderate) Congestive heart failure Dementia Diabetes mellitus Gout Hypertension Hypoxemia Iron deficiency anemia Memory Loss Moderate pulmonary arterial systolic hypertension Nonischemic cardiomyopathy Obstructive sleep apnea Osteoarthritis Pneumonia Transaminitis Type 2 diabetes mellitus Surgical History H/O bladder repair surgery History of cardiac cath History of hysterectomy History of knee replacement S/P cholecystectomy Family History Sister Hypertension Hyperlipidemia Grandmother Dementia Denies family history of Diabetes CAD (coronary artery disease) Clotting disorder Chronic kidney disease (CKD) Suicide Anesthesia complication Bleeding disorder Lung disease Cancer Stroke Social History Smoking and tobacco status: never smoked Alcohol intake: never Substance/Drug Use: never Do you think of yourself as: Straight/Heterosexual Physical Exam Const: COMMON NORMALS: no acute distress, average body habitus, patient oriented x3, no limitations, healthy appearing, alert and well nourished HENMT: COMMON NORMALS: normocephalic, atraumatic, hearing grossly normal bilaterally, external ears normal, Normal external nose present and moist oral mucous membranes HEAD & SCALP: normocephalic and atraumatic NOSE: Normal external nose present EXTERNAL EAR: Yes external ears normal Eye: COMMON NORMALS: Equal, round and reactive pupils present, EOMs intact bilaterally, conjunctivae normal and no scleral icterus CONJUNCTIVA: Yes conjunctivae normal PUPIL: Yes Equal, round and reactive pupils present Neck/C-Spine: COMMON NORMALS: full ROM, no lymphadenopathy, supple, no meningeal signs, no JVD and Thyroid normal THYROID: Thyroid normal Chest: COMMONS NORMALS: normal inspection of the chest and normal palpation of entire chest wall Resp: COMMON NORMALS: normal respiratory effort, No retractions and No use of accessory muscles Cardio: COMMON NORMALS: no JVD, regular rate, regular rhythm, S1 normal heart sound present and S2 normal heart sound present RATE: regular rate RHYTHM: regular rhythm HEART SOUNDS: S1 normal heart sound present and S2 normal heart sound present GI: COMMON NORMALS: Normal to inspection, nondistended, normoactive bowel sounds present, Soft to palpation and non-tender PALPATION: Yes Soft to palpation OTHER: At the beginning of the rectal exam showed external orifice was open allowing the bright red rectal mucosa to be seen this may be evident of a reducing rectal prolapse. Digital rectal exam was performed with no complications which was benign, external orifice spontaneously closed on its own with no evidence of further rectal prolapse. Neuro: COMMON NORMALS: patient oriented x3 SENSORIUM/ORIENTATION: Yes alert MENINGEAL SIGNS: Yes no meningeal signs Course Vital Signs: Vital signs: Vital Signs Temperature 97.7 F 02/27/23 07:42 Pulse Rate 63 02/27/23 07:42 Respiratory Rate 16 02/27/23 07:42 Blood Pressure 157/75 02/27/23 07:42 Pulse Oximetry 97 02/27/23 07:42 Oxygen Delivery Me thod Room Air 02/27/23 07:42 MDM - General Adult Medical Decision Making Patient presents to the ER by EMS with complaints of rectal prolapse. Patient was having a bowel movement this morning when she felt a pop and staff said they noticed the rectal prolapse. They said it was worse when she was bearing down. Upon arrival to the ER and further examination revealed no rectal prolapse or a spontaneously reducing rectal prolapse. skilled nursing was informed of this as well as the potential need possibly to see a GI or general surgeon if this happens again. Patient be discharged back to the halfway. Differential Diagnosis Rectal prolapse Medical Records I reviewed the patient's medical records. Lab Data I reviewed the patient's lab results. Discharge Plan Discharge Patient Disposition: Home Clinical Impression: Rectal prolapse Condition: Stable Prescriptions: No Action bisacodyl 10 mg suppository 10 mg AL DAILY PRN (Reason: Constipation) acetaminophen [Tylenol] 325 mg capsule 325 mg PO .see notes PRN (Reason: Pain) Patient Comments: Q 8 hours prn and BID sennosides [Senna Laxative] 8.6 mg tablet 8.6 mg PO BID lansoprazole 30 mg capsule,delayed release(DR/EC) 30 mg PO DAILY cetirizine 5 mg tablet 5 mg PO DAILY nitroglycerin 0.4 mg tablet, sublingual 0.4 mg SUBLINGUAL Q5M PRN (Reason: Chest Pain) Rx Instructions: do not exceed 3 doses per episode simvastatin 20 mg tablet 20 mg PO BEDTIME fluoxetine 20 mg tablet 20 mg PO DAILY sacubitril-valsartan 97-103 mg tablet 1 tab PO BID Qty: 180 3RF Rx Instructions: RXBIN: [id number] RXPCN: [id number] RXGRP: [id number] RXID: [id number] metoprolol succinate 25 mg tablet extended release 24 hr 25 mg PO DAILY amlodipine 5 mg tablet 5 mg PO DAILY Qty: 30 5RF ondansetron 4 mg Tablet,Disintegrating 4 mg PO Q8H Discharge Orders: Discharge ED (Routine); Ordered 02/27/23 Ordered By: Drake Espinosa Referrals: Gregory Wood DO [Primary Care Provider] - 1 week Patient Instructions: Rectal Prolapse (ED) Activity Restrictions/Additional Instructions: Please be careful bowel movements. Please increase your fiber and/or take [id number] supplements to reduce constipation . Constipation and straining may cause you to have a repeat rectal prolapse. If this happens again please present to the ER for further emergent care and you may need to see a surgeon for surgical care. Please follow-up with your primary care physician within 1 week. Coding Level of Care Code ED Staking Engineer for Lisbeth Osorio
[2023-02-27 09:34] VITALS: O2SAT 95
[2023-02-27 11:43] VITALS: BP 154/70; PULSE 57; RESP 18; O2SAT 95
== END 2023-02-27 11:45 | disposition home or self-care (01) ==
PROVIDERS: Emergency Provider Emergency Medicine; PCP Internal Medicine
DX: K62.3 Rectal prolapse (principal); I13.0 Hypertensive heart and chronic kidney disease with heart failure and stage 1 through stage 4 chronic kidney disease, or unspecified chronic kidney disease; E11.22 Type 2 diabetes mellitus with diabetic chronic kidney disease; N18.30 Chronic kidney disease, stage 3 unspecified; I50.9 Heart failure, unspecified; F03.90 Unspecified dementia, unspecified severity, without behavioral disturbance, psychotic disturbance, mood disturbance, and anxiety
CPT/HCPCS: 99283

== ENCOUNTER 2023-03-17 09:36 | Outpatient (CLI) | payer MEDICARE, OTHER, MEDICAID, SELFPAY ==
--- NOTE | 2023-03-17 09:45 | NMCV_ITS ---
NM card bld pool r or s*[id number] Valerie Mueller Age: 73 Gender: F : 1950 Exam Date: 03/17/2023 09:45 Ordering Phys: Emanuel Laguna MD ([email or web address]) Technologist: DEBORAH Castellanos Exam Location: [facility] Indications: HEART FAILURE, NONISCHEMIC CARDIOMYOPATHY Camera Used: [employer] Imaging Protocol: three view gated blood pool study Technical Image Quality: Good Dose: Admin Site: Administered By: [id number] Tagged RBCs: 26.0 IV - Right DEBORAH Vu Antecubital PYP: EJECTION FRACTION: Automatic LV EF: 58 Rest RV EF: Manual LV EF: FINDINGS The left ventricular ejection fraction was 58% bleeding The wall motion is revealing no gross wall motion abnormalities. CONCLUSIONS 1. Estimated LV ejection fraction of 58%. 2. LV wall motion analysis no significant wall motion normalities. Dr Emanuel Laguna MD FAC (Electronically Signed) Final Date: 17 Mar 2023 16:26 S
== END 2023-03-17 09:37 | disposition home or self-care (01) ==
LOC: RAD 09:41
PROVIDERS: PCP Internal Medicine; Visit Provider Internal Medicine Cardiovascular Disease
DX: I50.9 Heart failure, unspecified (principal); I42.8 Other cardiomyopathies
CPT/HCPCS: 78472; A9560

== ENCOUNTER 2023-03-26 20:20 | Emergency (ER) | payer MEDICARE, OTHER, MEDICAID, SELFPAY ==
[2023-03-26 20:24] VITALS: BP 173/136; PULSE 66; RESP 14; TEMP 36.7; O2SAT 100; BMI 30.1
[2023-03-26 21:09] VITALS: BP 139/73; PULSE 66; RESP 16; O2SAT 99
--- NOTE | 2023-03-26 21:37 | W.ED.GENADLT ---
HPI - General Adult General: Chief complaint: General Medical Stated complaint: rectal prolapse Time Seen by Provider: 03/26/23 21:37 Limitations: altered mental status History of Present Illness: 73-year-old lady presented to the emergency department for rectal prolapse. She denies history of similar however per EMS report she does have a history of similar and [facility] I did difficulty reducing her prolapse this time. She is unsure of exactly when this happened. Does have mild to moderate associated discomfort. Denies other recent changes in health. No other specific changes in health, exacerbating, or alleviating factors identified. Review of Systems General: Reports: 10 or more systems reviewed and unremarkable except in HPI and below PFSH ED PFSH: Medical History Abnormal colonoscopy Polyp removal Acute on chronic congestive heart failure Anemia Bladder wall thickening Bundle branch block Chronic kidney disease, stage 3 (moderate) Congestive heart failure Dementia Diabetes mellitus Gout Hypertension Hypoxemia Iron deficiency anemia Memory Loss Moderate pulmonary arterial systolic hypertension Nonischemic cardiomyopathy Obstructive sleep apnea Osteoarthritis Pneumonia Transaminitis Type 2 diabetes mellitus Surgical History H/O bladder repair surgery History of cardiac cath History of hysterectomy History of knee replacement S/P cholecystectomy Family History Sister Hypertension Hyperlipidemia Grandmother Dementia Denies family history of Diabetes CAD (coronary artery disease) Clotting disorder Chronic kidney disease (CKD) Suicide Anesthesia complication Bleeding disorder Lung disease Cancer Stroke Social History Smoking and tobacco status: never smoked Alcohol intake: never Substance/Drug Use: never Do you think of yourself as: Straight/Heterosexual Physical Exam Const: COMMON NORMALS: alert GENERAL APPEARANCE: cooperative and well developed HENMT: COMMON NORMALS: normocephalic and atraumatic HEAD & SCALP: normocephalic and atraumatic THROAT: posterior oropharynx normal Eye: COMMON NORMALS: conjunctivae normal CONJUNCTIVA: Yes conjunctivae normal SCLERA: sclerae normal Neck/C-Spine: COMMON NORMALS: supple GENERAL: Yes trachea midline Resp: COMMON NORMALS: clear to auscultation bilaterally EFFORT & INSPECTION: Yes able to speak in complete sentences AUSCULTATION: clear to auscultation bilaterally Cardio: COMMON NORMALS: regular rate and regular rhythm RATE: regular rate RHYTHM: regular rhythm GI: COMMON NORMALS: Soft to palpation PALPATION: Yes Soft to palpation and No Tenderness to palpation present (GI) OTHER: Performed with public relations present. Large rectal prolapse with healthy-appearing mucosa. There is no evidence of hemorrhage, tissue injury, ischemic or injury. Easily reducible. Patient has external hemorrhoids. On reassessment reduction continues to be successful. Extremity: GENERAL: Yes normal exam except as noted and No edema Neuro: COMMON NORMALS: CN's II-XII intact bilaterally, moves all extremities, no focal motor deficits and no sensory deficits noted SENSORIUM/ORIENTATION: Yes alert and Yes Orientation impaired Course Vital Signs: Vital signs: Vital Signs Temperature 98.0 F 03/26/23 23:18 Pulse Rate 66 03/26/23 23:18 Respiratory Rate 16 03/26/23 23:18 Blood Pressure 139/73 03/26/23 23:18 Pulse Oximetry 99 03/26/23 23:18 Oxygen Delivery Me thod Room Air 03/26/23 20:24 MDM - General Adult Medical Decision Making 73-year-old lady with likely history of recurrent rectal prolapse presenting due to similar. Exam as above. Successful reduction without difficulty and sustained control obtained with manual reduction in the emergency department. Patient does have evidence of poor pelvic floor muscle tone which likely will result in recurrence as patient has previously had. The results of ED evaluation were discussed with the patient including prescriptions and/or symptomatic cares (if applicable) including appropriate and responsible use, followup plan, and return precautions. The patient verbalized understanding and felt safe for discharge. Medical Records I reviewed the patient's medical records. Lab Data I reviewed the patient's lab results. Discharge Plan Discharge Patient Disposition: Home Clinical Impression: Rectal prolapse Condition: Stable Prescriptions: New Miralax 17 gram/dose powder 17 g PO DAILY PRN (Reason: constipation) Qty: 119 0RF No Action bisacodyl 10 mg suppository 10 mg IN DAILY PRN (Reason: Constipation) acetaminophen [Tylenol] 325 mg capsule 325 mg PO .see notes PRN (Reason: Pain) Patient Comments: Q 8 hours prn and BID sennosides [Senna Laxative] 8.6 mg tablet 8.6 mg PO BID lansoprazole 30 mg capsule,delayed release(DR/EC) 30 mg PO DAILY cetirizine 5 mg tablet 5 mg PO DAILY nitroglycerin 0.4 mg tablet, sublingual 0.4 mg SUBLINGUAL Q5M PRN (Reason: Chest Pain) Rx Instructions: do not exceed 3 doses per episode simvastatin 20 mg tablet 20 mg PO BEDTIME fluoxetine 20 mg tablet 20 mg PO DAILY sacubitril-valsartan 97-103 mg tablet 1 tab PO BID Qty: 180 3RF Rx Instructions: RXBIN: [id number] RXPCN: [id number] RXGRP: [id number] RXID: [id number] metoprolol succinate 25 mg tablet extended release 24 hr 25 mg PO DAILY amlodipine 5 mg tablet 5 mg PO DAILY Qty: 30 5RF ondansetron 4 mg Tablet,Disintegrating 4 mg PO Q8H Discharge Orders: Discharge ED (Routine); Ordered 03/26/23 Ordered By: Gelacio Ramos Referrals: Grgeory Wood, [Primary Care Provider] - Discharge Diet: Usual diet Discharge Activity: Increase activity as tolerated Patient Instructions: Rectal Prolapse (ED) Activity Restrictions/Additional Instructions: Thank you for visiting the emergency department. You were seen and evaluated for rectal prolapse. This was successfully reduced at bedside. I recommend continuing your medications and adding MiraLAX 17 g once daily mixed with 8 ounces of electrolyte solution for goals of having soft stools. This can be an as needed medication. Please follow-up with a primary care provider. If this is a recurrent issue you may consider follow-up with a colorectal or general surgeon. Return to the emergency department if you have recurrence without penitentiary staff ability to reduce the rectal prolapse, blood in stool, worse abdominal pain, or anything else that you are concerned about and feel needs emergency department evaluation. Coding Level of Care Code ED Bar Machine Operator for Lisbeth Osorio
[2023-03-26 23:18] VITALS: BP 139/73; PULSE 66; RESP 16; TEMP 36.7; O2SAT 99
== END 2023-03-26 23:19 | disposition home or self-care (01) ==
PROVIDERS: Emergency Provider Emergency Medicine; PCP Internal Medicine
DX: K62.3 Rectal prolapse (principal)
CPT/HCPCS: 99283

== ENCOUNTER → 2024-01-09 13:39 | Outpatient (BNVA) | payer MEDICARE, OTHER, MEDICAID, SELFPAY | PROVIDERS: PCP Internal Medicine; Visit Provider Internal Medicine Cardiovascular Disease | DX: I13.0 Hypertensive heart and chronic kidney disease with heart failure and stage 1 through stage 4 chronic kidney disease, or unspecified chronic kidney disease (principal); I50.9 Heart failure, unspecified; N18.32 Chronic kidney disease, stage 3b; I42.8 Other cardiomyopathies; E11.22 Type 2 diabetes mellitus with diabetic chronic kidney disease | CPT/HCPCS: 99214 ==

== ENCOUNTER 2024-01-20 14:07 | Outpatient (CLI) | payer MEDICARE, OTHER, MEDICAID, SELFPAY ==
--- NOTE | 2024-01-20 14:45 | USCV_ITS ---
Valerie Mueller Age: 73 Gender: F : 1950 Exam Date: 01/20/2024 15:19 Ordering Phys: Emanuel Laguna MD ([email or web address]) Technologist: PIPPA [place]am [place] [facility] [place]: Cardiomyopathy BP: 146 / 72 HR: 62 Rhythm: Sinus Technical Quality: Adequate MEASUREMENTS (Male / Female) Normal Values 2D ECHO LV Diastolic Diameter PLAX 4.2 cm 4.2 - 5.9 / 3.9 - 5.3 cm IVS Diastolic Thickness 1.3 cm 0.6 - 1.0 / 0.6 - 0.9 cm IVS Systolic Thickness 2.2 cm LVPW Diastolic Thickness 2.4 cm 0.6 - 1.0 / 0.6 - 0.9 cm LVPW Systolic Thickness 2.7 cm LVOT Diameter 2.0 cm LV Ejection Fraction 2D Teich 53.9 % LV Ejection Fraction MOD 2C 52.6 % LV Ejection Fraction 2C AL 53.4 % LA Diameter 3.3 cm RA Systolic Volume 4C AL 13.7 ml RA Systolic Volume 4C MOD 13.2 ml Aorta at Sinotubular Diameter 1.9 cm M-MODE LA Ao Ratio MM 0.9 AV Cusp Separation MM 1.7 cm FINDINGS Left Ventricle Mildly dilated left-ventricle. Mild concentric left-ventricular hypertrophy. Diffuse hypokinesis left ventricular ejection fraction of 44% Right Ventricle The right ventricle is normal in size and function. Right Atrium The right atrium is normal in size. Left Atrium The left atrium is normal in size. Mitral Valve No gross abnormalities noted Aortic Valve No gross abnormalities noted Tricuspid Valve No gross abnormalities noted Pulmonic Valve Pulmonic valve not well visualized. Pericardium No pericardial effusion. Aorta Normal ascending aorta dimension. IVC Inferior vena cava not visualized. CONCLUSIONS Mildly dilated left-ventricle. Mild concentric left-ventricular hypertrophy. Diffuse hypokinesis left ventricular ejection fraction of 44%. No gross valvular abnormalities noted. There is no pericardial effusion. Technically difficult study because of the poor ultrasonic window. Compared to the study from 10/21/2022, there is significant improvement in the LV ejection fraction from 35% to 44% Dr Emanuel Laguna MD [facility] (Electronically Signed) Final Date: 20 January 2024 20:54 S
== END 2024-01-20 14:08 | disposition home or self-care (01) ==
LOC: RAD 14:08
PROVIDERS: PCP Internal Medicine; Visit Provider Internal Medicine Cardiovascular Disease
DX: I42.9 Cardiomyopathy, unspecified (principal); I51.7 Cardiomegaly
CPT/HCPCS: 93308

== ENCOUNTER → 2024-04-09 10:34 | Outpatient (BNVA) | payer MEDICARE, OTHER, MEDICAID, SELFPAY | PROVIDERS: PCP Internal Medicine; Visit Provider Nurse Practitioner Family | DX: I13.0 Hypertensive heart and chronic kidney disease with heart failure and stage 1 through stage 4 chronic kidney disease, or unspecified chronic kidney disease (principal); E11.22 Type 2 diabetes mellitus with diabetic chronic kidney disease; N18.30 Chronic kidney disease, stage 3 unspecified; I50.9 Heart failure, unspecified | CPT/HCPCS: 99214 ==

== ENCOUNTER → 2024-10-10 15:45 | Outpatient (BNVA) | payer MEDICARE, OTHER, MEDICAID, SELFPAY | PROVIDERS: PCP Internal Medicine; Visit Provider Internal Medicine Cardiovascular Disease | DX: I50.9 Heart failure, unspecified; I11.0 Hypertensive heart disease with heart failure; E11.22 Type 2 diabetes mellitus with diabetic chronic kidney disease; I42.8 Other cardiomyopathies; N18.32 Chronic kidney disease, stage 3b | CPT/HCPCS: 99214 ==

== ENCOUNTER → 2025-10-10 11:01 | Outpatient (BNVA) | payer MEDICARE, OTHER, MEDICAID, SELFPAY | PROVIDERS: PCP Internal Medicine; Visit Provider Internal Medicine Cardiovascular Disease | DX: I13.0 Hypertensive heart and chronic kidney disease with heart failure and stage 1 through stage 4 chronic kidney disease, or unspecified chronic kidney disease (principal); E11.22 Type 2 diabetes mellitus with diabetic chronic kidney disease; N18.30 Chronic kidney disease, stage 3 unspecified; I50.9 Heart failure, unspecified; I42.8 Other cardiomyopathies; Z98.890 Other specified postprocedural states; R06.02 Shortness of breath | CPT/HCPCS: 99214 ==